=== PATIENT | male | born 1950 | race Caucasian/White ===

== ENCOUNTER → 2016-05-23 | Outpatient (REF) | payer MEDICARE, OTHER ==
[~2016-05-23] MED LIST: ATOR1TAB19 PO; BENA20TA2 PO; CIPR500T3 PO; FLAG500T PO; GLIP5TAB8 PO; JANU100T PO; METF750T PO; METO-207 PO; PRIM50TA6 PO
[2016-05-23 17:39] LABS: ALBUMIN 3.8 GM/DL (3.2-5.2); ALBUMIN/GLOBULIN RATIO 1.23 (1.00-1.93); BILIRUBIN,TOTAL 0.7 MG/DL (0.2-1.0); CREATININE FOR GFR 1.37 MG/DL (0.70-1.30); GLOMERULAR FILTRATION RATE 55.2 (>49); POTASSIUM SERUM 4.2 MEQ/L (3.5-5.1); TOTAL PROTEIN 6.9 GM/DL (6.4-8.2); URIC ACID 8.9 MG/DL (3.5-7.2)
== END ==
LOC: M SFHCCAPE 07:56
PROVIDERS: ATTEND Nurse Practitioner
DX: E11.9 Type 2 diabetes mellitus without complications (principal)

== ENCOUNTER → 2016-06-07 | Outpatient (REF) | payer MEDICARE, OTHER ==
[2016-06-07 17:18] LABS: ALBUMIN 4.2 GM/DL (3.2-5.2); ALBUMIN/GLOBULIN RATIO 1.4 (1.00-1.93); BILIRUBIN,TOTAL 0.5 MG/DL (0.2-1.0); CREATININE FOR GFR 1.48 MG/DL (0.70-1.30); GLOMERULAR FILTRATION RATE 50.3 (>49); POTASSIUM SERUM 4.8 MEQ/L (3.5-5.1); TOTAL PROTEIN 7.2 GM/DL (6.4-8.2)
== END ==
LOC: M SFHCCAPE 08:09
PROVIDERS: ATTEND Physician Assistant
DX: N20.0 Calculus of kidney (principal)

== ENCOUNTER → 2016-06-27 | Outpatient (REF) | payer MEDICARE, OTHER ==
[~2016-06-27] MED LIST changes: +ASPI1TAB PO; +ASPI81TAEC PO; +BENA40TA PO; +CLOB05OI EXT; +COLA100C3 PO; +COLC1TAB13 PO; +HYDR-3713 PO; +LORT5TAB PO; +NORC1TAB4 PO; +TYLE325T5 PO
[2016-06-27 18:17] LABS: MEAN CORPUSCULAR HEMOGLOBIN 29.8 pg (27.0-33.0); MEAN CORPUSCULAR HGB CONC 34.3 g/dl (32.0-36.5); MEAN CORPUSCULAR VOLUME 86.7 fl (80.0-96.0); RED CELL DISTRIBUTION WIDTH 13.1 % (11.5-14.5); WHITE BLOOD COUNT 7.6 K/mm3 (4.0-10.0)
[2016-06-27 18:24] LABS: CALCIUM LEVEL 8.4 MG/DL (8.8-10.2); CREATININE FOR GFR 1.38 MG/DL (0.70-1.30); GLOMERULAR FILTRATION RATE 54.5 (>49); POTASSIUM SERUM 4.1 MEQ/L (3.5-5.1)
[2016-06-27 18:25] LABS: INR 1.06
== END ==
LOC: M LABSMT 11:46
PROVIDERS: ATTEND Nurse Practitioner Family
DX: Z01.818 Encounter for other preprocedural examination (principal); N20.0 Calculus of kidney; Z79.899 Other long term (current) drug therapy

== ENCOUNTER → 2016-07-04 | Outpatient (CLI) | payer MEDICARE, BC, OTHER ==
[~2016-07-04] VITALS: Ht 180.3 cm; Wt 117.0 kg
[~2016-07-04] MED LIST changes: +COLA100C PO; -COLA100C3 PO; +ISOVUE-300 61% 50ML VIAL (Q9967) As Ordered ONE; +LIDOCAINE 2% MDV 20 ML VIAL As Ordered ONE; +LIDOCAINE W/EPINEPHRINE 1% 20ML VIAL As Ordered ONE; +LR 1,000 ML IV SCH; +MIDAZOLAM INJ 2 MG/2 ML VIAL (J2250) As Ordered ONE; -NORC1TAB4 PO; +NORC5TAB PO; +NORCO, ANEXSIA 5/325MG TABLET (HYDROcodone/ACETAMINOPHEN) As Ordered ONE; +NORCO, ANEXSIA 5/325MG TABLET (HYDROcodone/ACETAMINOPHEN) PO PRN; +ONDANSETRON 4MG/2ML VIAL (J2405) As Ordered ONE; +ONDANSETRON 4MG/2ML VIAL (J2405) IV PRN; +SODIUM BICARBONATE 8.4% INJ 50MEQ 50 ML VIAL As Ordered ONE; +cefTRIAXone SOD 1 GM VIAL (J0696) As Ordered ONE; +cefTRIAXone SOD 1 GM in D5W MINI-BAG PLUS 50 ML IV ONE; +fentaNYL 100 MCG/2 ML INJECTION (J3010) As Ordered ONE; +fentaNYL 100 MCG/2 ML INJECTION (J3010) IV PRN
[2016-07-04 15:15] VITALS: BP 191/82
--- NOTE | 2016-07-04 17:11 | REPKIM ---
CLINICAL HISTORY: Patient presents with a large kidney stone in the right renal pelvis as documented by the previous CT study dated 04/13/16. The referring urology service has requested a nephroureteral catheter (stent) placement for preop percutaneous nephrolithotripsy urology procedure. PROCEDURE PERFORMED: 1. Ultrasound right Kidney 2. Percutaneous antegrade Nephrostogram 3. Percutaneous Nephroureteral catheter (stent) placement INTERVENTIONALIST: Nissa Alberts MD CONSENT: The risks, benefits and alternatives to the procedure were explained to the patient and informed written consent was obtained. SEDATION: Sedation and analgesia was provided by the Anesthesiology Dept. MEDICATIONS: Rocephin 1gm IV, Local Lidocaine CONTRAST: 35 mL Isovue 300 EBL: 10 mL FLUORO TIME: 9.2 minutes DEVICE USED: 8.5F 45cm pigtail trimmed; Nephroureteral catheter Lot #[id number] PROCEDURE/FINDINGS: The patient was brought to the interventional radiology suite and placed in the prone position, right flank prepped and draped in the usual sterile fashion. Time out procedure was performed. Ultrasound of the kidney showed a large renal pelvis kidney stone. Two smaller stones were seen in the mid and lower pole calyces. No evidence of hydronephrosis. Using ultrasound and fluoroscopy guidance, a 21-gauge Accustick needle was advanced into the targeted posterior lower pole calyceal stone of the right kidney, after infiltration of the skin and deep tissues with local anesthetic. Contrast was injected and images were obtained. This showed antegrade flow of contrast into the urinary bladder. Using a hydrophilic guidewire, the catheter-wire combination was advanced around the calyceal/renal pelvis stones into the proximal ureter then into the urinary bladder. The wire was then exchanged for a stiff wire. An 8.5-Citizen Of [place] 45- cm length pigtail catheter, trimmed to make a straight catheter, ( nephroureteral catheter) was introduced over the guidewire after serial dilation of its tract. The guidewire was withdrawn and the distal end of the NU catheter positioned in the mid to distal ureter. The nephroureteral catheter was then flushed and capped. The patient tolerated the procedure well with no immediate complications. This procedure was performed using ultrasound and fluoroscopy. Dr. Alberts was present. IMPRESSION: 1. A large kidney stone in the right renal pelvis. Two calyceal stones identified; one in the mid level calyx and the other in the lower pole calyx. Nephrostogram demonstrates free antegrade flow of contrast into the urinary bladder. No evidence of hydronephrosis. 2. Successful 8.5F nephroureteral catheter placement via the lower pole posterior calyceal stone with its tip positioned in the mid to distal ureter. This access will be used for subsequent percutaneous nephrolithotripsy urology procedure. cc: ELI Mohan MD MTDD
== END | disposition home or self-care (01) ==
LOC: M IRPRO 10:01
PROVIDERS: ATTEND Nurse Practitioner Family
DX: N20.0 Calculus of kidney (principal)

== ENCOUNTER 2016-07-07 09:03 | Inpatient (IN) | payer MEDICARE, BC, OTHER ==
[~2016-07-07] VITALS: Ht 180.3 cm; Wt 117.0 kg
[~2016-07-07 09:03] MED LIST changes: -ASPI81TAEC PO; -BENA40TA PO; -CLOB05OI EXT; -COLA100C PO; -COLC1TAB13 PO; +CONRAY-60 60% 50ML VIAL (Q9961) As Ordered ONE; -ISOVUE-300 61% 50ML VIAL (Q9967) As Ordered ONE; -LIDOCAINE 2% MDV 20 ML VIAL As Ordered ONE; -LIDOCAINE W/EPINEPHRINE 1% 20ML VIAL As Ordered ONE; -LORT5TAB PO; -LR 1,000 ML IV SCH; -MIDAZOLAM INJ 2 MG/2 ML VIAL (J2250) As Ordered ONE; -NORCO, ANEXSIA 5/325MG TABLET (HYDROcodone/ACETAMINOPHEN) As Ordered ONE; -NORCO, ANEXSIA 5/325MG TABLET (HYDROcodone/ACETAMINOPHEN) PO PRN; -ONDANSETRON 4MG/2ML VIAL (J2405) As Ordered ONE; -ONDANSETRON 4MG/2ML VIAL (J2405) IV PRN; -SODIUM BICARBONATE 8.4% INJ 50MEQ 50 ML VIAL As Ordered ONE; -TYLE325T5 PO; -cefTRIAXone SOD 1 GM VIAL (J0696) As Ordered ONE; -cefTRIAXone SOD 1 GM in D5W MINI-BAG PLUS 50 ML IV ONE; -fentaNYL 100 MCG/2 ML INJECTION (J3010) As Ordered ONE; -fentaNYL 100 MCG/2 ML INJECTION (J3010) IV PRN
[2016-07-07] MEDS ORDERED: LR 1,000 ML IV SCH ×2 (09:15→14:00)
[2016-07-07] MEDS ORDERED: COLC1TAB13 PO (10:01)
[2016-07-07] MEDS ORDERED: NS 1,000 ML IV SCH (12:28)
[2016-07-07] MEDS ORDERED: ACETAMINOPHEN TAB 650MG DOSE (2X325MG) PO PRN (12:30)
[2016-07-07] MEDS ORDERED: MORPHINE 2 MG/ML 1ML SYRINGE IV PRN (12:30)
[2016-07-07] MEDS ORDERED: PERCOCET 5MG/325MG TAB PO PRN ×2 (12:30→14:00)
[2016-07-07] MEDS ORDERED: ONDANSETRON 4MG/2ML VIAL (J2405) IV PRN ×2 (12:30→14:00)
[2016-07-07] MEDS ORDERED: MIDAZOLAM INJ 2 MG/2 ML VIAL (J2250) As Ordered ONE (13:18)
[2016-07-07] MEDS ORDERED: PROPOFOL 500 MG/50 ML VIAL As Ordered ONE (13:18)
[2016-07-07] MEDS ORDERED: CONRAY-60 60% 50ML VIAL (Q9961) As Ordered ONE (13:18)
[2016-07-07] MEDS ORDERED: fentaNYL 100 MCG/2 ML INJECTION (J3010) As Ordered ONE ×2 (13:18→13:51)
[2016-07-07] MEDS ORDERED: ONDANSETRON 4MG/2ML VIAL (J2405) As Ordered ONE (13:19)
[2016-07-07] MEDS ORDERED: ROCURONIUM BROMIDE 50 MG/5 ML VIAL As Ordered ONE (13:19)
[2016-07-07] MEDS ORDERED: ePHEDrine SULFATE 25 MG/5 ML(5MG/ML) SYRINGE As Ordered ONE (13:20)
[2016-07-07] MEDS ORDERED: NEOSTIGMINE 1MG/ML 5 ML SYRINGE (J2710) As Ordered ONE (13:21)
[2016-07-07] MEDS ORDERED: GLYCOPYRROLATE INJ 0.2 MG/ML 2 ML VIAL As Ordered ONE ×2 (13:21→13:24)
[2016-07-07] MEDS ORDERED: PHENYLephrine HCL 500 MCG/5 ML (100MCG/ML) SYRINGE (J2370) As Ordered ONE (13:21)
[2016-07-07] MEDS ORDERED: fentaNYL 100 MCG/2 ML INJECTION (J3010) IV PRN (14:00)
[2016-07-07] MEDS ORDERED: NORCO, ANEXSIA 5/325MG TABLET (HYDROcodone/ACETAMINOPHEN) As Ordered ONE (14:01)
[2016-07-07] MEDS: NORCO, ANEXSIA 5/325MG TABLET (HYDROcodone/ACETAMINOPHEN) PO PRN ×2 (14:02→14:37)
[2016-07-07 14:15] LABS: MEAN CORPUSCULAR HGB CONC 33.9 g/dl (32.0-36.5); MEAN CORPUSCULAR VOLUME 85.7 fl (80.0-96.0); RED CELL DISTRIBUTION WIDTH 12.8 % (11.5-14.5); WHITE BLOOD COUNT 5.8 K/mm3 (4.0-10.0)
[2016-07-07 14:32] LABS: CALCIUM LEVEL 8.8 MG/DL (8.8-10.2); CREATININE FOR GFR 1.46 MG/DL (0.70-1.30); GLOMERULAR FILTRATION RATE 51.1 (>49)
--- NOTE | 2016-07-07 17:26 | REP ---
Clinical: Postoperative assessment . Comparison: 03/16/2016 . Findings: Examination is limited by underpenetration and poor inspiratory effort. The mediastinum and cardiac silhouette are stable and within normal limits for portable technique. Trace right basilar atelectasis cannot be excluded. Skeletal structures are intact. Impression: Possible trace right basilar atelectasis. Signed by Manuel Bustos MD 07/07/2016 05:17 P
[2016-07-07 18:03] VITALS: BP 137/65
--- NOTE | 2016-07-07 19:38 | RO ---
DATE OF PROCEDURE: 07/07/2016 PREPROCEDURE DIAGNOSIS: Right kidney stone. POSTPROCEDURE DIAGNOSIS: Right kidney stone. PROCEDURE: Aborted right percutaneous nephrolithotomy. SURGEON: Dr. Tj Merrill BABYSITTER: None. ANESTHESIA: General. OPERATIVE INDICATIONS: This is a 66-year-old male with approximately 2.5 cm right renal pelvis stone was brought to the operating room today for the above listed procedure. Of note, the patient went to Interventional Radiology a few days ago for placement of a nephroureteral stent. DESCRIPTION OF PROCEDURE: The patient was brought to the operating room and general anesthesia was induced. Prophylactic antibiotics were infused. He then had a Garg catheter placed under sterile conditions After that point he was placed in the prone position and prepped and draped in the usual sterile fashion. At the beginning of the procedure fluoroscopy was obtained and was notable for the right sided nephroureteral stent with the distal end ending in the proximal right ureter. At this point, an Amplatz super stiff wire was then advanced down the nephroureteral stent and while doing so the distal aspect of the nephroureteral stent actually pulled out of the ureter and out of the kidney. This effectively lost access to the kidney. At this point, I attempted to regain access and I inserted a spinal needle in the proximity of the kidney. Contrast was injected. It was clear that the needle was not within the collecting system. I tried this for a few minutes and it became clear that I was not going to be able to regain access to the right kidney. I then decided to abort the procedure at this point. The patient was then taken out of the prone position, awakened from anesthesia, and transported to the recovery room in stable condition. ESTIMATED BLOOD LOSS: 5 mL. COMPLICATIONS: None. SPECIMENS: None. PLAN: The patient is going to be sent home. We will have to send him back to Interventional Radiology and this time make have the nephroureteral stent be placed all the way down into the bladder. After that point, he will be brought back for his percutaneous nephrolithotomy. [facility]
[2016-07-07] MEDS ORDERED: ceFAZolin SOD 1 GM in D5W MINI-BAG PLUS 50 ML IV SCH (20:00)
[2016-07-07] MEDS ORDERED: ATORVASTATIN 10 MG TAB PO SCH (21:00)
[2016-07-07] MEDS ORDERED: PRIMIDONE 50 MG TAB PO SCH (21:00)
[2016-07-07] MEDS ORDERED: DOCUSATE SODIUM 100 MG CAP PO SCH (21:00)
[2016-07-08] MEDS ORDERED: COLCHICINE 0.6 MG TAB PO SCH (09:00)
[2016-07-08] MEDS ORDERED: METOPROLOL SUCC (TopROL XL) 50MG **XL** TAB PO SCH (09:00)
[2016-07-08] MEDS ORDERED: ASPIRIN 81 MG ENTERIC TAB PO SCH (09:00)
[2016-07-08] MEDS ORDERED: BENAZEPRIL 20 MG TAB PO SCH (09:00)
[2016-07-08] MEDS ORDERED: SITagliptin 50 MG TAB (JANUVIA) PO SCH (09:00)
[2016-07-10] MEDS ORDERED: ONDANSETRON 4MG/2ML VIAL (J2405) As Ordered ONE (15:06)
[2016-07-12] MEDS ORDERED: COLA100C PO (10:56)
== END 2016-07-07 14:45 | disposition home or self-care (01) | DRG 661 ==
LOC: M OR 09:03 → M RR INP 13:31
PROVIDERS: ADMIT Urology; ATTEND Urology
PROC: 0T763ZZ Dilation of Right Ureter, Percutaneous Approach (ICD-10-PCS; principal; 2016-07-04)
DX: N20.0 Calculus of kidney (principal)

== ENCOUNTER 2016-07-10 11:04 | Inpatient (IN) | payer MEDICARE, BC, OTHER ==
[~2016-07-10] VITALS: Ht 180.3 cm; Wt 120.3 kg
[~2016-07-10 11:04] MED LIST changes: +COLC1TAB13 PO; -CONRAY-60 60% 50ML VIAL (Q9961) As Ordered ONE; +NORC1TAB4 PO; -NORC5TAB PO
[2016-07-10] MEDS ORDERED: cefTRIAXone SOD 1 GM VIAL (J0696) As Ordered ONE (13:19)
[2016-07-10] MEDS ORDERED: ISOVUE-300 61% 50ML VIAL (Q9967) As Ordered ONE (13:19)
[2016-07-10] MEDS ORDERED: cefTRIAXone SOD 1 GM in D5W MINI-BAG PLUS 50 ML IV ONE (13:19)
[2016-07-10] MEDS ORDERED: LIDOCAINE 2% MDV 20 ML VIAL As Ordered ONE (13:19)
[2016-07-10] MEDS ORDERED: PERCOCET 5MG/325MG TAB PO PRN ×2 (14:15→15:15)
[2016-07-10] MEDS ORDERED: DEXTROSE 50% 50 ML SYRINGE IV PRN (14:15)
[2016-07-10] MEDS ORDERED: MORPHINE 2 MG/ML 1ML SYRINGE IV PRN (14:15)
[2016-07-10] MEDS ORDERED: ONDANSETRON 4MG/2ML VIAL (J2405) IV PRN ×2 (14:15→15:15)
[2016-07-10] MEDS ORDERED: GLUCOSE 4 GM CHEW TABLET PO PRN (14:15)
[2016-07-10] MEDS ORDERED: ACETAMINOPHEN TAB 650MG DOSE (2X325MG) PO PRN (14:15)
[2016-07-10] MEDS ORDERED: GLUCAGON FOR INJ 1 MG VIAL (J1610) SC PRN (14:15)
[2016-07-10] MEDS ORDERED: MEPERIDINE INJ 25 MG/ML VIAL (J2175) IV PRN (15:15)
[2016-07-10] MEDS ORDERED: METOCLOPRAMIDE INJ 10MG/2ML VIAL (J2765) IV PRN (15:15)
[2016-07-10] MEDS ORDERED: LR 1,000 ML IV SCH (15:15)
[2016-07-10] MEDS ORDERED: fentaNYL 100 MCG/2 ML INJECTION (J3010) IV PRN (15:15)
--- NOTE | 2016-07-10 15:47 | REPKIM ---
CLINICAL HISTORY: Patient presents with right sided kidney stones. The referring urology service has requested a nephroureteral catheter (stent) placement for preop percutaneous nephrolithotripsy urology procedure. PROCEDURE PERFORMED: 1. Ultrasound right Kidney 2. Percutaneous antegrade Nephrostogram 3. Percutaneous Nephroureteral catheter (stent) placement INTERVENTIONALIST: Nissa Alberts MD CONSENT: The risks, benefits and alternatives to the procedure were explained to the patient and informed written consent was obtained. SEDATION: Sedation and analgesia was provided by the Anesthesiology Dept. MEDICATIONS: Rocephin 1gm IV, Local Lidocaine CONTRAST: 46 mL Isovue 300 EBL: 10 mL FLUORO TIME: 9.2 minutes DEVICE USED: 5F 70 cm pigtail; Nephroureteral catheter Lot #[id number] PROCEDURE/FINDINGS: The patient was brought to the interventional radiology suite and placed in the prone position, right flank prepped and draped in the usual sterile fashion. Time out procedure was performed. Ultrasound of the kidney showed a large kidney stone in the renal pelvis. Two smaller stones were seen in the mid and lower pole calyces. Using ultrasound and fluoroscopy guidance, a 21-gauge Accustick needle was advanced into the targeted posterior lower pole calyceal stone of the right kidney, after infiltration of the skin and deep tissues with local anesthetic. Contrast was injected and images were obtained. This showed antegrade flow of contrast into the urinary bladder. Using a hydrophilic guidewire, the catheter-wire combination was advanced around the calyceal/renal pelvis stones into the proximal ureter then into the urinary bladder. The wire was then exchanged for a stiff wire. A 5-Sinhala 70-cm length pigtail catheter was introduced over the guidewire. The guidewire was withdrawn and the distal end of the loop in the bladder. The nephroureteral catheter was then flushed and capped. The patient tolerated the procedure well with no immediate complications. This procedure was performed using ultrasound and fluoroscopy. Dr. Alberts was present. IMPRESSION: 1. A large kidney stone in the right renal pelvis. Two calyceal stones in the mid to lower pole calyces. Nephrostogram demonstrates free antegrade flow of contrast into the urinary bladder. No evidence of hydronephrosis. 2. Successful 5F nephroureteral catheter placement via the lower pole posterior calyceal stone with its tip positioned in the urinary bladder as discussed above. This access will be used for subsequent percutaneous nephrolithotripsy urology procedure. cc: ELI Mohan MD MTDD
[2016-07-10 16:00] VITALS: BP 178/81
[2016-07-10 17:00] VITALS: BP 158/76
--- NOTE | 2016-07-10 17:47 | HPEPDOC ---
General Date of Admission Jul 10, 2016 at 14:13 Attending Physician: SYLVIA GONZALEZ MD Chief Complaint Rt Renal Calculi Source: Patient History of Present Illness This is a 66 y/o M w/ a PMH significant for HTN, DM2, colon cancer (s/p bowel resection), and kidney stones, admitted to the hospital for pain control after having a right percutaneous nephroureteral (NU) stent placement. The patient underwent an aborted right PCNL this past week due to loss of access to the kidney. He therefore had a new percutaneous NU stent placed today in IR. Since the procedure, he has had moderate amount of pain, requiring admission for pain control. At the time of my visit, his pain had improved some. Home Medications Scheduled (Colchicine) 0.6 Mg Tab 0.6 MG PO DAILY (Reported) Aspirin (Aspirin 81) 81 Mg Tab 81 MG PO DAILY (Reported) Atorvastatin Calcium (Atorvastatin Calcium) 10 Mg Tab 10 MG PO QPM (Reported) Benazepril HCl (Benazepril HCl) 20 Mg Tab 40 MG PO DAILY (Reported) Metformin Hydrochloride (Metformin HCl ER) 750 Mg Tab 750 MG PO DAILY (Reported ) Metoprolol Succinate (Metoprolol Succinate ER) 50 Mg Tab 50 MG PO DAILY ( Reported) Primidone (Primidone) 50 Mg Tab 50 MG PO BID (Reported) Sitagliptin Phosphate (Januvia) 100 Mg Tab 100 MG PO DAILY (Reported) Scheduled PRN Acetaminophen/Hydrocodone (Hydrocodone/Acetaminophen 5-325 mg) 1 Tab Tab 1 TAB PO Q6HP PRN PRN pain Allergies Coded Allergies: Morphine (Unverified Adverse Reaction, Intermediate, "Night Terrors", 07/07) Derivative Milk (Unverified Adverse Reaction, Mild, DIARRHEA, 07/07/16) Sulfanilamide (Unverified Adverse Reaction, Mild, Upset Stomach, 07/07/16) Indomethacin (Unverified Adverse Reaction, Unknown, Blood in urine, ) Past Medical History Medical History see HPI Surgical History colon resection Review of Symptoms Constitutional: Denies: Chills, Fever, Night Sweats Eyes: Denies: Pain, Vision change ENT: Denies: Dysphagia, Ear Pain, Head Aches Skin: Denies: Breakdown, Lesions, Rash Pulmonary: Denies: Cough, Dyspnea Cardiovascular: Denies: Chest Pain, Lt Headedness, Orthopnea, Palpitations, Paroxysmal Noc. Dyspnea Gastrointestinal: Denies: Abdominal Pain, Diarrhea, Nausea, Vomiting Genitourinary: Denies: Dysuria, Frequency, Incontinence, Retention Hematologic: Denies: Bleeding Excessively, Bruising Musculoskeletal: Reports: Other Symptoms (moderate right big toe pain from gout flare up) Neurological: Denies: Change in speech, Confusion, Numbness, Weakness Psych: Reports: Mood Normal, Denies: Depression, Memory Issues Physical Examination General Exam: Positive: Alert, No Acute Distress ENT Exam: Positive: Atraumatic Chest Exam: Positive: Clear to auscultation, Normal air movement Heart Exam: Positive: Rate Normal Abdomen Exam: Positive: Soft, Negative: Tenderness Skin Exam: Positive: Nl turgor and temperature Neuro Exam: Positive: Normal Speech Psych Exam: Positive: Mental status NL, Mood NL Vital Signs T 97.0 / HR 57 / RR 20 / BP 158/76 / O2 Sat 96% on RA Assessment/Plan This is a 66 y/o M w/ a large right renal stone admitted for pain control after having a right percutaneous NU stent placed in IR today. Plan / VTE VTE Prophylaxis Ordered?: Yes VTE Exclusion Mechanical Proph: N/A:VTE Prophy Ordered Plan Plan - plan for right percutaneous nephrolithotomy tomorrow - percocet, morphine prn pain - continue home meds (will plan to hold benazepril in the morning) - SCDs - SSI - diabetic diet - NPO at midnight for right PCNL tomorrow SYLVIA GONZALEZ MD Jul 10, 2016 17:47
[2016-07-10 18:00] VITALS: BP 163/80
[2016-07-10] MEDS: HumaLOG INSULIN (NovoLOG) PER UNIT SC SCH (18:00)
[2016-07-10] MEDS: COLCHICINE 0.6 MG TAB PO PRN (20:22)
[2016-07-10] MEDS: PRIMIDONE 50 MG TAB PO SCH (20:23)
[2016-07-10] MEDS: ATORVASTATIN 10 MG TAB PO SCH (20:23)
[2016-07-10 22:00] VITALS: BP 156/74
[2016-07-11 06:00] VITALS: BP 158/80
[2016-07-11] MEDS ORDERED: CLOB05OI EXT (06:14)
[2016-07-11] MEDS ORDERED: ASPI81TAEC PO (06:14)
[2016-07-11] MEDS ORDERED: HYDR-3713 PO (06:14)
[2016-07-11 06:24] LABS: MEAN CORPUSCULAR HEMOGLOBIN 29.3 pg (27.0-33.0); MEAN CORPUSCULAR HGB CONC 34.5 g/dl (32.0-36.5); MEAN CORPUSCULAR VOLUME 84.9 fl (80.0-96.0); RED CELL DISTRIBUTION WIDTH 12.7 % (11.5-14.5); WHITE BLOOD COUNT 5.5 K/mm3 (4.0-10.0)
[2016-07-11 06:38] LABS: CALCIUM LEVEL 8.7 MG/DL (8.8-10.2); CREATININE FOR GFR 1.29 MG/DL (0.70-1.30); POTASSIUM SERUM 3.6 MEQ/L (3.5-5.1)
[2016-07-11] MEDS: HumaLOG INSULIN (NovoLOG) PER UNIT SC SCH ×3 (07:30→17:57)
[2016-07-11] MEDS ORDERED: BENAZEPRIL 20 MG TAB PO SCH (09:00)
[2016-07-11] MEDS: ASPIRIN 81 MG ENTERIC TAB PO SCH (09:31)
[2016-07-11] MEDS: METOPROLOL SUCC (TopROL XL) 50MG **XL** TAB PO SCH (09:31)
[2016-07-11] MEDS: PRIMIDONE 50 MG TAB PO SCH ×2 (09:33→20:16)
[2016-07-11 10:00] VITALS: BP 146/74
[2016-07-11] MEDS ORDERED: ceFAZolin SOD 2 GM in D5W MINI-BAG PLUS 50 ML IV SCH (12:00)
[2016-07-11] MEDS: NS 1,000 ML IV SCH (16:45)
--- NOTE | 2016-07-11 16:45 | ROOPDOC ---
[facility] Report Of Operation Report of Operation DATE OF PROCEDURE: 07/11/2016 PREPROCEDURE DIAGNOSIS: Right kidney stone. POSTPROCEDURE DIAGNOSIS: Right kidney stone. PROCEDURE: Right percutaneous nephrolithotomy, right antegrade nephrostogram with intraoperative interpretation of images, right ureteral stent placement. SURGEON: Sylvia Gonzalez MD BROWNELL OPERATOR: None. ANESTHESIA: General. OPERATIVE INDICATIONS: This is a 66-year-old male with a 2.2cm right renal pelvis stone. He underwent a right nephroureteral stent placement in Interventional Radiology yesterday and was brought to the operating room today for treatment of his stone. DESCRIPTION OF PROCEDURE: The patient was brought to the operating room and general anesthesia was induced. Prophylactic antibiotics were infused. He then had a Garg catheter placed under sterile conditions. This catheter was connected to gravity drainage and then he was repositioned in a prone position for the percutaneous nephrolithotomy. His right flank was then prepped and draped in usual sterile fashion. We then gained access to right kidney by advancing an Amplatz Super Stiff wire down the nephroureteral stent. The nephroureteral stent was then removed leaving the wire in place. A skin incision, approximately 2-3 cm in length, was made adjacent to the wire and a dual lumen ureteral catheter was then advanced over the wire into the right kidney. An antegrade nephrostogram was then performed and it was negative for extravasation. I then advanced a guidewire down the other port of the dual lumen ureteral catheter and then the dual lumen ureteral catheter was removed leaving both wires in place. The guidewire was then secured to the drapes served as a safety wire and over the Super Stiff wire the balloon dilator was advanced into the right kidney. This was then inflated to 18 atmospheres and left in place for a few seconds. I then advanced an access sheath over the balloon and into the right kidney. The balloon was then let down and removed, and the wire was secured to a drape. I then went in the right kidney with the nephroscope and within renal pelvis, the large 2.2 cm stone was seen. The stone was then fragmented into smaller pieces and suctioned out using the CyberWand. The larger pieces were also removed using a Perc NCircle basket. Once all the stones were removed, I utilized the previously placed wire to advance a 7-[place] x 22-32 cm JJ ureteral stent down into the right collecting system. The wire was then removed and there were adequate curls of the stent in the right renal pelvis and in the bladder. At this point, the access sheath was removed and the remaining wire was utilized to advance an 18-[place] tip catheter into the right renal pelvis. The balloon was inflated with about 2-3 mL of contrast and the wire was then removed. Another antegrade nephrostogram was performed and it was negative for extravasation. This catheter was then secured to the skin using a #2-0 silk suture. The catheter was then connected to gravity drainage. Dressings were then applied, and this marked conclusion of procedure. The patient was placed back in supine position, awakened from anesthesia, transported to the recovery room in stable condition. ESTIMATED BLOOD LOSS: 25 mL. COMPLICATIONS: None. SPECIMENS: Kidney stone fragments. PLAN: The patient will be admitted to the hospital postoperatively. He will likely have his right nephrostomy catheter and Garg catheter removed tomorrow and then he will be discharged home with the plan to remove his stent in a few weeks. SYLVIA GONZALEZ MD Jul 11, 2016 16:45
[2016-07-11 17:15] VITALS: BP 184/86
[2016-07-11 17:15] LABS: MEAN CORPUSCULAR HGB CONC 33.7 g/dl (32.0-36.5); MEAN CORPUSCULAR VOLUME 85.9 fl (80.0-96.0); RED CELL DISTRIBUTION WIDTH 12.7 % (11.5-14.5); WHITE BLOOD COUNT 6.4 K/mm3 (4.0-10.0)
[2016-07-11 17:28] LABS: CALCIUM LEVEL 8.5 MG/DL (8.8-10.2); CREATININE FOR GFR 1.39 MG/DL (0.70-1.30); GLOMERULAR FILTRATION RATE 54.1 (>49); POTASSIUM SERUM 3.6 MEQ/L (3.5-5.1)
[2016-07-11 17:45] VITALS: BP 166/77
[2016-07-11 18:45] VITALS: BP 157/74
[2016-07-11] MEDS: ATORVASTATIN 10 MG TAB PO SCH (20:15)
[2016-07-11] MEDS: ceFAZolin SOD 1 GM in D5W MINI-BAG PLUS 50 ML IV SCH (20:15)
[2016-07-11] MEDS: COLCHICINE 0.6 MG TAB PO PRN (20:15)
[2016-07-11] MEDS: NORCO, ANEXSIA 5/325MG TABLET (HYDROcodone/ACETAMINOPHEN) PO PRN (20:16)
[2016-07-11] MEDS: DOCUSATE SODIUM 100 MG CAP PO SCH (20:16)
[2016-07-11 22:00] VITALS: BP 143/70
[2016-07-12] MEDS: NS 1,000 ML IV SCH ×2 (01:38→12:27)
[2016-07-12 02:00] VITALS: BP 146/76
[2016-07-12] MEDS: ceFAZolin SOD 1 GM in D5W MINI-BAG PLUS 50 ML IV SCH (03:31)
[2016-07-12] MEDS: NORCO, ANEXSIA 5/325MG TABLET (HYDROcodone/ACETAMINOPHEN) PO PRN (05:52)
[2016-07-12 06:00] VITALS: BP 147/72
[2016-07-12 07:10] LABS: MEAN CORPUSCULAR HEMOGLOBIN 29.9 pg (27.0-33.0); MEAN CORPUSCULAR VOLUME 85.6 fl (80.0-96.0); RED CELL DISTRIBUTION WIDTH 12.7 % (11.5-14.5); WHITE BLOOD COUNT 5.8 K/mm3 (4.0-10.0)
[2016-07-12 07:14] LABS: CALCIUM LEVEL 7.8 MG/DL (8.8-10.2); CREATININE FOR GFR 1.38 MG/DL (0.70-1.30); GLOMERULAR FILTRATION RATE 54.5 (>49); POTASSIUM SERUM 3.7 MEQ/L (3.5-5.1)
[2016-07-12] MEDS ORDERED: NORCO, ANEXSIA 5/325MG TABLET (HYDROcodone/ACETAMINOPHEN) PO PRN ×2 (07:15)
--- NOTE | 2016-07-12 07:43 | IPNPDOC ---
Assessment/Plan Date Seen The patient was seen on 07/12/16. Patient Summary This is a 66 y/o M POD1 s/p right PCNL. He is doing well. His Hb today is stable. Good UOP from both the nephrostomy catheter and the marie catheter. His nephrostomy catheter was therefore removed. We will leave the marie catheter in for 1 hour. If urine remains pink or clearer, we will remove the marie. Plan/VTE VTE Prophylaxis Ordered?: Yes VTE Exclusion Mechanical Proph: N/A:VTE Prophy Ordered Plan/Urinary Catheter Urinary Catheter: D/C Marie Plan - d/c marie after 1 hour if urine remains pink or clearer - norco prn pain w/ morphine for breakthrough - ambulate - periop ancef - SCDs - plan for discharge home after patient voids Subjective Review oF Systems Chief Complaint The patient is a 66-year-old male admitted with a reason for visit of Rt Renal Calculi. Events since Last Encounter No acute events o/n. Good pain control. No n/v. No f/c/ns. Objective Physical Examination General Exam: : Alert: Cooperative: No Acute Distress Heart Exam: Positive: Rate Normal ABDOMEN EXAM: : Soft Skin Exam: : Nl turgor and temperature Psych Exam: : Mental status NL: Mood NL Other physical findings marie catheter draining pink urine; right nephrostomy catheter draining dark pink urine w/ no clots Vital Signs/I&O Vital Signs Date Time Temp Pulse Resp B/P Pulse Ox O2 Delivery O2 Flow Rate FiO2 07/12/16 06:23 18 07/12/16 06:00 97.2 78 147/72 95 Room Air I&O- Last 24 Hours up to 6 AM 07/12/16 06:00 Intake Total 0 ml Output Total 2820 ml Balance -2820 ml Laboratory Data Labs 24H Laboratory Tests 2 07/11/16 11:22: Bedside Glucose (Misc Panel) 129H 07/11/16 16:52: Anion Gap 6L, Blood Urea Nitrogen 17, Creatinine 1.39H, Sodium Level 140, Potassium Level 3.6, Chloride Level 102, Carbon Dioxide Level 32, Calcium Level 8.5L, Glomerular Filtration Rate 54.1 07/11/16 17:17: Bedside Glucose (Misc Panel) 120H 07/11/16 20:43: Bedside Glucose (Misc Panel) 180H 07/12/16 06:37: Anion Gap 5L, Blood Urea Nitrogen 15, Creatinine 1.38H, Sodium Level 138, Potassium Level 3.7, Chloride Level 102, Carbon Dioxide Level 31, Calcium Level 7.8L, Glomerular Filtration Rate 54.5 CBC/BMP Laboratory Tests 07/11/16 16:52 Calcium Level 8.5 L, Red Blood Count 4.35, Mean Corpuscular Volume 85.9, Mean Corpuscular Hemoglobin 29.0, Mean Corpuscular Hemoglobin Concent 33.7, Red Cell Distribution Width 12.7 07/12/16 06:37 Calcium Level 7.8 L, Red Blood Count 3.79 L, Mean Corpuscular Volume 85.6, Mean Corpuscular Hemoglobin 29.9, Mean Corpuscular Hemoglobin Concent 35.0, Red Cell Distribution Width 12.7 FSBS Laboratory Tests Test 07/11/16 11:22 07/11/16 17:17 07/11/16 20:43 Range/Units Bedside Glucose (Misc Panel) 129 120 180 80-115 MG/DL SYLVIA GONZALEZ MD Jul 12, 2016 07:43
[2016-07-12] MEDS: DOCUSATE SODIUM 100 MG CAP PO SCH (08:28)
[2016-07-12] MEDS: ASPIRIN 81 MG ENTERIC TAB PO SCH (08:28)
[2016-07-12] MEDS: PRIMIDONE 50 MG TAB PO SCH (08:28)
[2016-07-12 08:29] VITALS: BP 146/70
[2016-07-12] MEDS: METOPROLOL SUCC (TopROL XL) 50MG **XL** TAB PO SCH (08:29)
[2016-07-12] MEDS: HumaLOG INSULIN (NovoLOG) PER UNIT SC SCH ×2 (08:29→12:38)
[2016-07-12 10:00] VITALS: BP 145/73
[2016-07-12] MEDS ORDERED: TYLE325T5 PO (10:56)
[2016-07-12] MEDS ORDERED: BENA40TA PO (10:56)
[2016-07-12] MEDS ORDERED: LORT5TAB PO (10:56)
[2016-07-12] MEDS ORDERED: COLA100C3 PO (10:56)
--- NOTE | 2016-07-13 15:15 | DSES ---
DATE OF ADMISSION: 07/10/2016 DATE OF DISCHARGE: 07/12/2016 ADMISSION DIAGNOSIS: Right kidney stone. DISCHARGE DIAGNOSIS: Right kidney stone. ADMITTING PHYSICIAN: Tj Merrill MD DISCHARGING PHYSICIAN: Tj Merrill MD PROCEDURE PERFORMED: Right percutaneous nephroureteral stent placement on 07/10/2016 and a right percutaneous nephrolithotomy on 07/11/2016. HISTORY OF PRESENT ILLNESS: This is a 66-year-old male with a large right kidney stone who came to the hospital for an outpatient placement of a right percutaneous nephroureteral stent on 07/10/2016. He had moderate amounts of postoperative pain and therefore was admitted to the hospital for pain control prior to his scheduled surgery on 07/11/2016. HOSPITALIZATION COURSE: The patient was admitted to the hospital after undergoing a right percutaneous nephroureteral stent placement on 07/10/2016 for pain control. His pain was kept under control overnight and he was taken to the operating room for a right percutaneous nephrolithotomy on 07/11/2016. That procedure went without complications. After the procedure, he was brought back to the regular nursing floor and his postoperative course was unremarkable. On postoperative day #1 his pain was very well controlled. His blood work was within normal limits. He was tolerating a regular diet and was ambulating well without difficulty. He was therefore discharged home on postoperative day #1 from the percutaneous nephrolithotomy in good condition. His right nephrostomy catheter as well as his Garg catheter were both removed prior to discharge and he voided without any difficulty. He had a right ureteral stent still in place and the plan is for him to be brought back to the office for stent removal in a few weeks.
== END 2016-07-12 13:26 | disposition home or self-care (01) | DRG 661 ==
LOC: M IRPRO 11:04 → M MSPAV 14:13
PROVIDERS: ADMIT Urology; ATTEND Urology
PROC: 0T9030Z Drainage of Right Kidney with Drainage Device, Percutaneous Approach (ICD-10-PCS; principal; 2016-07-10 13:00)
PROC: 0TC03ZZ Extirpation of Matter from Right Kidney, Percutaneous Approach (ICD-10-PCS; 2016-07-11)
PROC: 0T763DZ Dilation of Right Ureter with Intraluminal Device, Percutaneous Approach (ICD-10-PCS; 2016-07-11)
DX: N20.0 Calculus of kidney (principal); I10 Essential (primary) hypertension; Z85.038 Personal history of other malignant neoplasm of large intestine; Z90.49 Acquired absence of other specified parts of digestive tract; Z79.82 Long term (current) use of aspirin; Z79.84 Long term (current) use of oral hypoglycemic drugs; Z79.899 Other long term (current) drug therapy; Z88.5 Allergy status to narcotic agent; Z88.2 Allergy status to sulfonamides; Z91.011 Allergy to milk products; Z88.6 Allergy status to analgesic agent

== ENCOUNTER → 2016-07-12 | Day surgery (SDC) | payer MEDICARE, BC, OTHER ==
[2016-07-11 17:00] VITALS: BP 167/79
[~2016-07-12] MED LIST changes: +ASPI81TAEC PO; +BENA40TA PO; +CLOB05OI EXT; +COLA100C3 PO; +CONRAY-60 60% 50ML VIAL (Q9961) As Ordered ONE; +GLYCOPYRROLATE INJ 0.2 MG/ML 2 ML VIAL As Ordered ONE; +HYDROmorphone HCL 1 MG/ML SYRINGE (J1170) IV PRN; +LIDOCAINE 2% INJ 100 MG/5 ML SDV (FOR ANES.) As Ordered ONE; +LORT5TAB PO; +LR 1,000 ML IV SCH; +MIDAZOLAM INJ 2 MG/2 ML VIAL (J2250) As Ordered ONE; +NEOSTIGMINE 1MG/ML 5 ML SYRINGE (J2710) As Ordered ONE; +ONDANSETRON 4MG/2ML VIAL (J2405) As Ordered ONE; +ONDANSETRON 4MG/2ML VIAL (J2405) IV PRN; +PERCOCET 5MG/325MG TAB PO PRN; +PHENYLephrine HCL 500 MCG/5 ML (100MCG/ML) SYRINGE (J2370) As Ordered ONE; +PROPOFOL 200 MG/20 ML VIAL As Ordered ONE; +ROCURONIUM BROMIDE 50 MG/5 ML VIAL As Ordered ONE; +TYLE325T5 PO; +ceFAZolin 2 GM/D5W 50 ML IV BAG (J0690) As Ordered ONE; +ePHEDrine SULFATE 25 MG/5 ML(5MG/ML) SYRINGE As Ordered ONE; +fentaNYL 100 MCG/2 ML INJECTION (J3010) IV PRN; +fentaNYL 250 MCG/5 ML INJECTION (J3010) As Ordered ONE
--- NOTE | 2016-07-12 08:43 | REP ---
FLUOROSCOPIC GUIDANCE FOR PERCUTANEOUS NEPHROLITHOTRIPSY: 07/11/2016. Clinical history: Renal stone disease. Nine images from C-arm fluoroscopy provided to Dr. Merrill of the urology division for nephrolithotripsy left side. A percutaneous nephroureteral stent was placed the previous day. There is contrast injected through the catheter with urogram. Wire was passed down the ureter and over this wire a internal ureteral stent was placed. The filling defects in the collecting system are consistent with a known stone disease. Fluoroscopy time: 30 seconds. Signed by Dwayne Barrett MD 07/12/2016 05:04 P
[2016-07-20 00:08] LABS: Uric Acid 100 % (.)
== END | disposition home or self-care (01) ==
LOC: M SDC 08:00
PROVIDERS: ATTEND Urology
DX: N20.0 Calculus of kidney (principal); Z53.8 Procedure and treatment not carried out for other reasons

== ENCOUNTER → 2016-07-21 | Outpatient (CLI) | payer MEDICARE, BC, OTHER ==
[~2016-07-21] MED LIST changes: -CONRAY-60 60% 50ML VIAL (Q9961) As Ordered ONE; -GLYCOPYRROLATE INJ 0.2 MG/ML 2 ML VIAL As Ordered ONE; -HYDROmorphone HCL 1 MG/ML SYRINGE (J1170) IV PRN; -LIDOCAINE 2% INJ 100 MG/5 ML SDV (FOR ANES.) As Ordered ONE; -LR 1,000 ML IV SCH; -MIDAZOLAM INJ 2 MG/2 ML VIAL (J2250) As Ordered ONE; -NEOSTIGMINE 1MG/ML 5 ML SYRINGE (J2710) As Ordered ONE; -ONDANSETRON 4MG/2ML VIAL (J2405) As Ordered ONE; -ONDANSETRON 4MG/2ML VIAL (J2405) IV PRN; -PERCOCET 5MG/325MG TAB PO PRN; -PHENYLephrine HCL 500 MCG/5 ML (100MCG/ML) SYRINGE (J2370) As Ordered ONE; -PROPOFOL 200 MG/20 ML VIAL As Ordered ONE; -ROCURONIUM BROMIDE 50 MG/5 ML VIAL As Ordered ONE; -ceFAZolin 2 GM/D5W 50 ML IV BAG (J0690) As Ordered ONE; -ePHEDrine SULFATE 25 MG/5 ML(5MG/ML) SYRINGE As Ordered ONE; -fentaNYL 100 MCG/2 ML INJECTION (J3010) IV PRN; -fentaNYL 250 MCG/5 ML INJECTION (J3010) As Ordered ONE
--- NOTE | 2016-07-21 13:45 | REP ---
Supine abdomen two views: Comparison is 03/16/2016. There is a right ureteral stent with the proximal and distal pigtails in satisfactory locations. No calcifications noted along the course of the stent. There is a calcification inferiorly in the pelvis on the left, unchanged, nonspecific. Multiple surgical clips are noted in the abdomen on the left. The bowel gas pattern is normal. There are large bridging osteophytes throughout the lumbar spine, unchanged. There is bilateral hip osteoarthritis, unchanged. Signed by Jose Nunez MD 07/21/2016 01:37 P
== END ==
LOC: M SMT 13:01
PROVIDERS: ATTEND Urology
DX: N20.0 Calculus of kidney (principal)

== ENCOUNTER → 2016-08-29 | Outpatient (REF) | payer MEDICARE, OTHER ==
[2016-08-29 19:13] LABS: ALBUMIN 3.8 GM/DL (3.2-5.2); ALBUMIN/GLOBULIN RATIO 1.27 (1.00-1.93); BILIRUBIN,TOTAL 0.6 MG/DL (0.2-1.0); CALCIUM LEVEL 8.7 MG/DL (8.8-10.2); CREATININE FOR GFR 1.32 MG/DL (0.70-1.30); GLOMERULAR FILTRATION RATE 57.4 (>49); TOTAL PROTEIN 6.8 GM/DL (6.4-8.2)
== END ==
LOC: M SFHCCAPE 07:29
PROVIDERS: ATTEND Physician Assistant
DX: E11.9 Type 2 diabetes mellitus without complications (principal)

== ENCOUNTER → 2016-11-27 | Outpatient (REF) | payer MEDICARE, OTHER ==
[~2016-11-27] MED LIST changes: -BENA20TA2 PO; +BENA20TA8 PO; -COLA100C3 PO; +COLA100C5 PO; -METO-207 PO; +METO1TAB7 PO
[2016-11-27 16:39] LABS: BASO % 0.6 % (0.0-1.0); EOS # 0.1 K/mm3 (0.0-0.50); LARGE UNSTAINED CELL # 0.1 K/mm3 (0.0-0.4); LARGE UNSTAINED CELL % 1.3 % (0.0-4.0); LYMPH # 1.3 K/mm3 (1.5-4.5); LYMPH % 19.9 % (24.0-44.0); MEAN CORPUSCULAR HEMOGLOBIN 29.8 pg (27.0-33.0); MEAN CORPUSCULAR HGB CONC 34.4 g/dl (32.0-36.5); MEAN CORPUSCULAR VOLUME 86.7 fl (80.0-96.0); MONO # 0.5 K/mm3 (0.0-0.8); MONO % 8.2 % (0.0-5.0); NEUTROPHILS # 4.2 K/mm3 (1.8-7.7); NEUTROPHILS % 68.1 % (36.0-66.0); PLATELET COUNT, AUTOMATED 140 k/mm3 (150-450); RED CELL DISTRIBUTION WIDTH 13.8 % (11.5-14.5); WHITE BLOOD COUNT 6.2 K/mm3 (4.0-10.0)
[2016-11-27 16:53] LABS: ALBUMIN 3.8 GM/DL (3.2-5.2); ALBUMIN/GLOBULIN RATIO 1.15 (1.00-1.93); BILIRUBIN,TOTAL 0.5 MG/DL (0.2-1.0); CALCIUM LEVEL 8.8 MG/DL (8.8-10.2); CREATININE FOR GFR 1.38 MG/DL (0.70-1.30); GLOMERULAR FILTRATION RATE 54.5 (>49); POTASSIUM SERUM 4.4 MEQ/L (3.5-5.1); TOTAL PROTEIN 7.1 GM/DL (6.4-8.2)
== END ==
LOC: M SFHCCAPE 07:27
PROVIDERS: ATTEND Physician Assistant
DX: E11.9 Type 2 diabetes mellitus without complications (principal); I10 Essential (primary) hypertension

== ENCOUNTER → 2017-01-22 | Outpatient (CLI) | payer MEDICARE, BC, OTHER ==
--- NOTE | 2017-01-22 14:44 | REP ---
RENAL ULTRASOUND: HISTORY: Kidney stones. The kidneys are normal in echogenicity. The right kidney measures 4.7 cm in transverse by 7.1 cm in AP by 12.8 cm in cephalocaudal dimensions. The left kidney measures 6.2 cm in transverse by 6.5 cm in AP by 12.7 cm in cephalocaudal dimensions. There is no hydronephrosis or mass. A small focus of increased echogenicity 1.1 mm in size is present in the left kidney. A small focus of increased signal intensity 6 mm in size is present in the left kidney. These may represent small calculi. There are no filling defects in the urinary bladder. IMPRESSION: There are two small echogenic areas in the kidneys that may represent small calculi. Signed by Hernan Tang MD 01/22/2017 02:45 P
== END ==
LOC: M SMT 13:01
PROVIDERS: ATTEND Urology
DX: N20.0 Calculus of kidney (principal)

== ENCOUNTER → 2017-03-06 | Outpatient (REF) | payer MEDICARE, OTHER ==
[2017-03-06 19:31] LABS: BASO % 0.4 % (0.0-1.0); EOS # 0.1 10^3/uL (0.0-0.50); EOS % 1.7 % (0.0-3.0); IMMATURE GRANULOCYTE % 0.3 % (0-0); LYMPH # 1.5 10^3/uL (1.5-4.5); LYMPH % 20.9 % (24.0-44.0); MEAN CORPUSCULAR HEMOGLOBIN 29.4 pg (27.0-33.0); MEAN CORPUSCULAR HGB CONC 33.7 g/dl (32.0-36.5); MEAN CORPUSCULAR VOLUME 87.2 fl (80.0-96.0); MONO # 0.6 10^3/uL (0.0-0.8); MONO % 8.4 % (0.0-5.0); NEUTROPHILS # 4.9 10^3/uL (1.8-7.7); NEUTROPHILS % 68.3 % (36.0-66.0); PLATELET COUNT, AUTOMATED 154 10^3/uL (150-450); RED CELL DISTRIBUTION WIDTH 12.1 % (11.5-14.5); WHITE BLOOD COUNT 7.1 10^3/uL (4.0-10.0)
[2017-03-06 20:57] LABS: ALBUMIN 3.9 GM/DL (3.2-5.2); ALBUMIN/GLOBULIN RATIO 1.26 (1.00-1.93); BILIRUBIN,TOTAL 0.4 MG/DL (0.2-1.0); CALCIUM LEVEL 8.9 MG/DL (8.8-10.2); CREATININE FOR GFR 1.59 MG/DL (0.70-1.30); FREE T4 0.97 NG/DL (0.76-1.46); GLOMERULAR FILTRATION RATE 46.3 (>49); POTASSIUM SERUM 4.8 MEQ/L (3.5-5.1)
== END ==
LOC: M SFHCCAPE 07:27
PROVIDERS: ATTEND Physician Assistant
DX: I10 Essential (primary) hypertension (principal); E11.9 Type 2 diabetes mellitus without complications; Z12.5 Encounter for screening for malignant neoplasm of prostate
CPT/HCPCS: 36415; 80053; 80061; 82043; 84439; 84443; 85025; G0103

== ENCOUNTER → 2017-03-12 | Outpatient (REF) | payer MEDICARE, OTHER ==
[2017-03-12 17:43] LABS: ALBUMIN 3.8 GM/DL (3.2-5.2); ALBUMIN/GLOBULIN RATIO 1.19 (1.00-1.93); BILIRUBIN,TOTAL 0.3 MG/DL (0.2-1.0); CALCIUM LEVEL 8.7 MG/DL (8.8-10.2); CREATININE FOR GFR 1.3 MG/DL (0.70-1.30); GLOMERULAR FILTRATION RATE 58.4 (>49); POTASSIUM SERUM 4.4 MEQ/L (3.5-5.1)
[2017-03-12 18:03] LABS: BASO % 0.4 % (0.0-1.0); EOS # 0.2 10^3/uL (0.0-0.50); EOS % 1.8 % (0.0-3.0); IMMATURE GRANULOCYTE % 0.2 % (0-0); LYMPH # 1.5 10^3/uL (1.5-4.5); LYMPH % 17.5 % (24.0-44.0); MEAN CORPUSCULAR VOLUME 87.8 fl (80.0-96.0); MONO # 0.7 10^3/uL (0.0-0.8); NEUTROPHILS # 6.2 10^3/uL (1.8-7.7); NEUTROPHILS % 72.1 % (36.0-66.0); PLATELET COUNT, AUTOMATED 142 10^3/uL (150-450); RED CELL DISTRIBUTION WIDTH 12.1 % (11.5-14.5); WHITE BLOOD COUNT 8.6 10^3/uL (4.0-10.0)
== END ==
LOC: M SFHCCAPE 08:56
PROVIDERS: ATTEND Physician Assistant
DX: E11.9 Type 2 diabetes mellitus without complications (principal)
CPT/HCPCS: 80053; 83036; 85025; G0463

== ENCOUNTER → 2017-06-04 | Outpatient (REF) | payer MEDICARE, OTHER ==
[2017-06-04 18:38] LABS: ALBUMIN 3.9 GM/DL (3.2-5.2); ALBUMIN/GLOBULIN RATIO 1.18 (1.00-1.93); ALKALINE PHOSPHATASE 87 U/L (45-117); ALT/SGPT 23 U/L (12-78); ANION GAP 6 MEQ/L (8-16); AST/SGOT 12 U/L (7-37); BILIRUBIN,TOTAL 0.3 MG/DL (0.2-1.0); BLOOD UREA NITROGEN 26 MG/DL (7-18); CALCIUM LEVEL 8.3 MG/DL (8.8-10.2); CARBON DIOXIDE LEVEL 28 MEQ/L (21-32); CHLORIDE LEVEL 108 MEQ/L (98-107); CHOLESTEROL LEVEL 136 MG/DL (<200); CREATININE FOR GFR 1.43 MG/DL (0.70-1.30); GLOMERULAR FILTRATION RATE 52.2 (>49); GLUCOSE, FASTING 158 MG/DL (70-100); HDL CHOLESTEROL 40 MG/DL (>40); LDL CHOLESTEROL 61.2 MG/DL (<100); NON-HDL-C 96 MG/DL; POTASSIUM SERUM 4.7 MEQ/L (3.5-5.1); SODIUM LEVEL 142 MEQ/L (136-145); TOTAL PROTEIN 7.2 GM/DL (6.4-8.2); TRIGLYCERIDES LEVEL 174 MG/DL (<150)
[2017-06-04 18:57] LABS: BASO % 0.3 % (0.0-1.0); EOS # 0.1 10^3/uL (0.0-0.50); EOS % 1.7 % (0.0-3.0); HEMATOCRIT 41.5 % (42.0-52.0); HEMOGLOBIN 13.8 g/dl (14.0-18.0); IMMATURE GRANULOCYTE % 0.3 % (0-3.0); LYMPH # 1.7 10^3/uL (1.5-4.5); LYMPH % 24.3 % (24.0-44.0); MEAN CORPUSCULAR HEMOGLOBIN 28.6 pg (27.0-33.0); MEAN CORPUSCULAR HGB CONC 33.3 g/dl (32.0-36.5); MEAN CORPUSCULAR VOLUME 85.9 fl (80.0-96.0); MONO # 0.6 10^3/uL (0.0-0.8); MONO % 8.5 % (0.0-5.0); NEUTROPHILS # 4.5 10^3/uL (1.8-7.7); NEUTROPHILS % 64.9 % (36.0-66.0); PLATELET COUNT, AUTOMATED 151 10^3/uL (150-450); RED BLOOD COUNT 4.83 10^6/uL (4.30-6.10); RED CELL DISTRIBUTION WIDTH 12.8 % (11.5-14.5); WHITE BLOOD COUNT 6.9 10^3/uL (4.0-10.0)
[2017-06-04 19:33] LABS: ESTIMATED AVERAGE GLUCOSE 154 MG/DL (60-110)
== END ==
LOC: M SFHCCAPE 07:21
DX: E78.2 Mixed hyperlipidemia (principal); E11.9 Type 2 diabetes mellitus without complications
CPT/HCPCS: 80053

== ENCOUNTER → 2017-08-28 | Outpatient (REF) | payer MEDICARE, OTHER ==
[2017-08-28 17:05] LABS: BASO % 0.5 % (0.0-1.0); EOS # 0.2 10^3/uL (0.0-0.50); EOS % 1.8 % (0.0-3.0); HEMATOCRIT 39.1 % (42.0-52.0); HEMOGLOBIN 13.2 g/dl (13.5-17.5); IMMATURE GRANULOCYTE % 0.6 % (0-3.0); LYMPH # 1.7 10^3/uL (1.5-4.5); LYMPH % 19.9 % (24.0-44.0); MEAN CORPUSCULAR HEMOGLOBIN 29.5 pg (27.0-33.0); MEAN CORPUSCULAR HGB CONC 33.8 g/dl (32.0-36.5); MEAN CORPUSCULAR VOLUME 87.3 fl (80.0-96.0); MONO # 0.8 10^3/uL (0.0-0.8); MONO % 9.1 % (0.0-5.0); NEUTROPHILS # 5.8 10^3/uL (1.8-7.7); NEUTROPHILS % 68.1 % (36.0-66.0); PLATELET COUNT, AUTOMATED 132 10^3/uL (150-450); RED BLOOD COUNT 4.48 10^6/uL (4.30-6.10); RED CELL DISTRIBUTION WIDTH 12.7 % (11.5-14.5); WHITE BLOOD COUNT 8.5 10^3/uL (4.0-10.0)
[2017-08-28 17:15] LABS: ALBUMIN 3.8 GM/DL (3.2-5.2); ALBUMIN/GLOBULIN RATIO 1.12 (1.00-1.93); ALKALINE PHOSPHATASE 91 U/L (45-117); ALT/SGPT 32 U/L (12-78); ANION GAP 7 MEQ/L (8-16); AST/SGOT 17 U/L (7-37); BILIRUBIN,TOTAL 0.5 MG/DL (0.2-1.0); BLOOD UREA NITROGEN 29 MG/DL (7-18); CALCIUM LEVEL 8.4 MG/DL (8.8-10.2); CARBON DIOXIDE LEVEL 29 MEQ/L (21-32); CHLORIDE LEVEL 108 MEQ/L (98-107); CREATININE FOR GFR 1.51 MG/DL (0.70-1.30); GLUCOSE, FASTING 160 MG/DL (70-100); POTASSIUM SERUM 4.6 MEQ/L (3.5-5.1); SODIUM LEVEL 144 MEQ/L (136-145); TOTAL PROTEIN 7.2 GM/DL (6.4-8.2)
[2017-08-28 20:15] LABS: ESTIMATED AVERAGE GLUCOSE 160 MG/DL (60-110); HEMOGLOBIN A1c 7.2 %
== END ==
LOC: M SFHCCAPE 07:08
DX: E11.9 Type 2 diabetes mellitus without complications (principal)
CPT/HCPCS: 80053

== ENCOUNTER → 2017-09-12 | Outpatient (REF) | payer MEDICARE, OTHER ==
[2017-09-13 08:23] LABS: APPEARANCE, URINE CLOUDY (CLEAR); BACTERIA, URINE AUTO NEGATIVE (NEGATIVE); BILIRUBIN, URINE AUTO NEGATIVE (NEGATIVE); BLOOD, URINE BLOOD NEGATIVE (NEGATIVE); COLOR, URINE STRAW (YELLOW); GLUCOSE, URINE (UA) AUTO NEGATIVE (NEGATIVE); KETONE, URINE AUTO NEGATIVE (NEGATIVE); LEUKOCYTE ESTERASE, URINE AUTO NEGATIVE (NEGATIVE); NITRITE, URINE AUTO NEGATIVE (NEGATIVE); PROTEIN, URINE AUTO NEGATIVE (NEGATIVE); RBC, URINE AUTO 0 /HPF (0-3); SPECIFIC GRAVITY URINE AUTO 1.006 (1.002-1.035); SQUAMOUS EPITHELIAL CELL UR AU 0 /HPF (0-6); URIC ACID CRYSTALS LARGE; UROBILINOGEN, URINE AUTO 0.2 mg/dL (0.0-2.0); WBC, URINE AUTO 5 /HPF (0-3)
[2017-09-13 08:26] LABS: ALBUMIN 4.1 GM/DL (3.2-5.2); ALBUMIN/GLOBULIN RATIO 1.32 (1.00-1.93); ALKALINE PHOSPHATASE 91 U/L (45-117); ALT/SGPT 33 U/L (12-78); ANION GAP 6 MEQ/L (8-16); AST/SGOT 15 U/L (7-37); BILIRUBIN,TOTAL 0.4 MG/DL (0.2-1.0); BLOOD UREA NITROGEN 28 MG/DL (7-18); CALCIUM LEVEL 8.4 MG/DL (8.8-10.2); CARBON DIOXIDE LEVEL 27 MEQ/L (21-32); CHLORIDE LEVEL 105 MEQ/L (98-107); CREATININE FOR GFR 1.57 MG/DL (0.70-1.30); GLOMERULAR FILTRATION RATE 46.9 (>49); GLUCOSE, FASTING 164 MG/DL (70-100); POTASSIUM SERUM 4.7 MEQ/L (3.5-5.1); SODIUM LEVEL 138 MEQ/L (136-145); TOTAL PROTEIN 7.2 GM/DL (6.4-8.2)
[2017-09-13 08:27] LABS: CREATININE, URINE 54.2 MG/DL; MALB URINE SIEMENS 11.2 MG/L; MAU/CREAT RATIO 20.6 MCG/MG (0.0-30.0)
== END ==
LOC: M SFHCCAPE 08:13
DX: R79.89 Other specified abnormal findings of blood chemistry (principal); Z79.899 Other long term (current) drug therapy
CPT/HCPCS: 80053

== ENCOUNTER → 2017-09-17 | Outpatient (CLI) | payer MEDICARE, BC, OTHER | LOC: M RAD 11:53 | DX: R79.89 Other specified abnormal findings of blood chemistry (principal) | CPT/HCPCS: 76775 ==

== ENCOUNTER → 2017-12-06 | Outpatient (REF) | payer MEDICARE, OTHER ==
[2017-12-06 16:20] LABS: BASO % 0.3 % (0.0-1.0); EOS # 0.1 10^3/uL (0.0-0.50); EOS % 1.5 % (0.0-3.0); HEMATOCRIT 37.6 % (42.0-52.0); HEMOGLOBIN 12.5 g/dl (13.5-17.5); IMMATURE GRANULOCYTE % 0.3 % (0-3.0); LYMPH # 1.3 10^3/uL (1.5-4.5); LYMPH % 20.2 % (24.0-44.0); MEAN CORPUSCULAR HEMOGLOBIN 29.3 pg (27.0-33.0); MEAN CORPUSCULAR HGB CONC 33.2 g/dl (32.0-36.5); MEAN CORPUSCULAR VOLUME 88.1 fl (80.0-96.0); MONO # 0.5 10^3/uL (0.0-0.8); MONO % 8.3 % (0.0-5.0); NEUTROPHILS # 4.5 10^3/uL (1.8-7.7); NEUTROPHILS % 69.4 % (36.0-66.0); PLATELET COUNT, AUTOMATED 127 10^3/uL (150-450); RED BLOOD COUNT 4.27 10^6/uL (4.30-6.10); RED CELL DISTRIBUTION WIDTH 12.8 % (11.5-14.5); WHITE BLOOD COUNT 6.5 10^3/uL (4.0-10.0)
[2017-12-06 16:39] LABS: ESTIMATED AVERAGE GLUCOSE 146 MG/DL (60-110); HEMOGLOBIN A1c 6.7 %
[2017-12-06 16:41] LABS: ALBUMIN 3.8 GM/DL (3.2-5.2); ALBUMIN/GLOBULIN RATIO 1.19 (1.00-1.93); ALKALINE PHOSPHATASE 92 U/L (45-117); ALT/SGPT 24 U/L (12-78); ANION GAP 10 MEQ/L (8-16); AST/SGOT 10 U/L (7-37); BILIRUBIN,TOTAL 0.3 MG/DL (0.2-1.0); BLOOD UREA NITROGEN 44 MG/DL (7-18); CALCIUM LEVEL 8.5 MG/DL (8.8-10.2); CARBON DIOXIDE LEVEL 24 MEQ/L (21-32); CHLORIDE LEVEL 109 MEQ/L (98-107); CHOLESTEROL LEVEL 128 MG/DL (<200); CREATININE FOR GFR 1.67 MG/DL (0.70-1.30); GLOMERULAR FILTRATION RATE 43.6 (>49); GLUCOSE, FASTING 151 MG/DL (70-100); HDL CHOLESTEROL 32 MG/DL (>40); LDL CHOLESTEROL 58.4 MG/DL (<100); NON-HDL-C 96 MG/DL; POTASSIUM SERUM 5.1 MEQ/L (3.5-5.1); SODIUM LEVEL 143 MEQ/L (136-145); THYROID STIMULATING HORMONE 0.619 uIU/ML (0.358-3.740); TRIGLYCERIDES LEVEL 188 MG/DL (<150)
== END ==
LOC: M SFHCCAPE 06:58
DX: E78.2 Mixed hyperlipidemia (principal); I10 Essential (primary) hypertension; E11.9 Type 2 diabetes mellitus without complications
CPT/HCPCS: 84443

== ENCOUNTER → 2018-02-12 | Outpatient (CLI) | payer MEDICARE, BC, OTHER | LOC: M RAD 09:13 | DX: N20.0 Calculus of kidney (principal); K80.20 Calculus of gallbladder without cholecystitis without obstruction | CPT/HCPCS: 74176 ==

== ENCOUNTER → 2018-02-28 | Outpatient (CLI) | payer MEDICARE, BC, OTHER ==
[2018-02-28 15:13] LABS: ANION GAP 7 MEQ/L (8-16); BLOOD UREA NITROGEN 32 MG/DL (7-18); CARBON DIOXIDE LEVEL 27 MEQ/L (21-32); CHLORIDE LEVEL 103 MEQ/L (98-107); GLOMERULAR FILTRATION RATE 58.3 (>49); GLUCOSE, FASTING 118 MG/DL (70-100); POTASSIUM SERUM 4.5 MEQ/L (3.5-5.1); SODIUM LEVEL 137 MEQ/L (136-145)
[2018-02-28 15:27] LABS: APPEARANCE, URINE CLEAR (CLEAR); BACTERIA, URINE AUTO NEGATIVE (NEGATIVE); BILIRUBIN, URINE AUTO NEGATIVE (NEGATIVE); BLOOD, URINE BLOOD NEGATIVE (NEGATIVE); COLOR, URINE STRAW (YELLOW); GLUCOSE, URINE (UA) AUTO NEGATIVE (NEGATIVE); KETONE, URINE AUTO NEGATIVE (NEGATIVE); LEUKOCYTE ESTERASE, URINE AUTO NEGATIVE (NEGATIVE); NITRITE, URINE AUTO NEGATIVE (NEGATIVE); PROTEIN, URINE AUTO NEGATIVE (NEGATIVE); RBC, URINE AUTO 0 /HPF (0-3); SPECIFIC GRAVITY URINE AUTO 1.009 (1.002-1.035); SQUAMOUS EPITHELIAL CELL UR AU 0 /HPF (0-6); UROBILINOGEN, URINE AUTO 0.2 mg/dL (0.0-2.0); WBC, URINE AUTO 0 /HPF (0-3)
== END ==
LOC: M SMT 11:00
DX: N20.0 Calculus of kidney (principal)
CPT/HCPCS: 80048

== ENCOUNTER → 2018-03-13 | Outpatient (REF) | payer MEDICARE, OTHER ==
[2018-03-13 16:41] LABS: CALCIUM LEVEL 8.2 MG/DL (8.8-10.2); CREATININE FOR GFR 1.55 MG/DL (0.70-1.30); GLOMERULAR FILTRATION RATE 47.6 (>49); POTASSIUM SERUM 4.1 MEQ/L (3.5-5.1)
[2018-03-13 16:42] LABS: APPEARANCE, URINE CLEAR (CLEAR); BACTERIA, URINE AUTO NEGATIVE (NEGATIVE); BILIRUBIN, URINE AUTO NEGATIVE (NEGATIVE); BLOOD, URINE BLOOD 1+ (NEGATIVE); COLOR, URINE YELLOW (YELLOW); GLUCOSE, URINE (UA) AUTO NEGATIVE (NEGATIVE); KETONE, URINE AUTO NEGATIVE (NEGATIVE); LEUKOCYTE ESTERASE, URINE AUTO NEGATIVE (NEGATIVE); MUCUS, URINE SMALL (NEGATIVE); NITRITE, URINE AUTO NEGATIVE (NEGATIVE); PROTEIN, URINE AUTO NEGATIVE (NEGATIVE); RBC, URINE AUTO 0 /HPF (0-3); SPECIFIC GRAVITY URINE AUTO 1.017 (1.002-1.035); SQUAMOUS EPITHELIAL CELL UR AU 0 /HPF (0-6); UROBILINOGEN, URINE AUTO 0.2 mg/dL (0.0-2.0); WBC, URINE AUTO 0 /HPF (0-3)
[2018-03-13 16:50] LABS: ALBUMIN 3.7 GM/DL (3.2-5.2); BILIRUBIN,TOTAL 0.5 MG/DL (0.2-1.0); CALCIUM LEVEL 8.1 MG/DL (8.8-10.2); CHOLESTEROL RISK RATIO 4.029 (<5); CREATININE FOR GFR 1.57 MG/DL (0.70-1.30); GLOMERULAR FILTRATION RATE 46.9 (>49)
[2018-03-13 16:52] LABS: BASO # 0.1 10^3/uL (0.0-0.2); BASO % 0.5 % (0.0-1.0); EOS # 0.2 10^3/uL (0.0-0.50); EOS % 1.6 % (0.0-3.0); HEMATOCRIT 40.6 % (42.0-52.0); HEMOGLOBIN 13.5 g/dl (13.5-17.5); LYMPH # 1.4 10^3/uL (1.5-4.5); LYMPH % 14.2 % (24.0-44.0); MEAN CORPUSCULAR HEMOGLOBIN 28.9 pg (27.0-33.0); MEAN CORPUSCULAR HGB CONC 33.3 g/dl (32.0-36.5); MEAN CORPUSCULAR VOLUME 86.9 fl (80.0-96.0); MONO # 0.9 10^3/uL (0.0-0.8); MONO % 9.4 % (0.0-5.0); NEUTROPHILS # 7.1 10^3/uL (1.8-7.7); PLATELET COUNT, AUTOMATED 141 10^3/uL (150-450); RED BLOOD COUNT 4.67 10^6/uL (4.30-6.10); WHITE BLOOD COUNT 9.6 10^3/uL (4.0-10.0)
[2018-03-13 17:15] LABS: HEMOGLOBIN A1c 6.3 %
== END ==
LOC: M SFHCCAPE 07:58
PROVIDERS: ATTEND Physician Assistant
DX: N20.0 Calculus of kidney (principal); I10 Essential (primary) hypertension; E11.9 Type 2 diabetes mellitus without complications; E78.2 Mixed hyperlipidemia; M10.9 Gout, unspecified
CPT/HCPCS: 36415; 80053; 80061; 81001; 83036; 84550; 85025; 90670; 90682; G0008; G0009; G0463

== ENCOUNTER → 2018-03-27 | Outpatient (CLI) | payer MEDICARE, BC, OTHER ==
[2018-03-27 14:16] LABS: BACTERIA, URINE AUTO NEGATIVE (NEGATIVE); RBC, URINE AUTO 0 /HPF (0-3); SQUAMOUS EPITHELIAL CELL UR AU 0 /HPF (0-6); WBC, URINE AUTO 0 /HPF (0-3)
[2018-03-27 14:58] LABS: APPEARANCE, URINE CLEAR (CLEAR); BILIRUBIN, URINE AUTO NEGATIVE (NEGATIVE); BLOOD, URINE BLOOD NEGATIVE (NEGATIVE); COLOR, URINE STRAW (YELLOW); GLUCOSE, URINE (UA) AUTO NEGATIVE (NEGATIVE); KETONE, URINE AUTO NEGATIVE (NEGATIVE); LEUKOCYTE ESTERASE, URINE AUTO NEGATIVE (NEGATIVE); NITRITE, URINE AUTO NEGATIVE (NEGATIVE); PROTEIN, URINE AUTO NEGATIVE (NEGATIVE); SPECIFIC GRAVITY URINE AUTO 1.004 (1.002-1.035); UROBILINOGEN, URINE AUTO 0.2 mg/dL (0.0-2.0)
[2018-03-27 15:11] LABS: ANION GAP 11 MEQ/L (8-16); BLOOD UREA NITROGEN 31 MG/DL (7-18); CALCIUM LEVEL 8.8 MG/DL (8.8-10.2); CARBON DIOXIDE LEVEL 25 MEQ/L (21-32); CHLORIDE LEVEL 101 MEQ/L (98-107); CREATININE FOR GFR 1.41 MG/DL (0.70-1.30); GLOMERULAR FILTRATION RATE 53.1 (>49); GLUCOSE, FASTING 95 MG/DL (70-100); POTASSIUM SERUM 4.4 MEQ/L (3.5-5.1); SODIUM LEVEL 137 MEQ/L (136-145)
== END ==
LOC: M SMT 11:47
DX: N20.0 Calculus of kidney (principal)
CPT/HCPCS: 80048

== ENCOUNTER → 2018-04-19 | Outpatient (CLI) | payer MEDICARE, BC, OTHER ==
[2018-04-19 13:46] LABS: APPEARANCE, URINE CLEAR (CLEAR); BACTERIA, URINE AUTO NEGATIVE (NEGATIVE); BILIRUBIN, URINE AUTO NEGATIVE (NEGATIVE); BLOOD, URINE BLOOD NEGATIVE (NEGATIVE); COLOR, URINE STRAW (YELLOW); GLUCOSE, URINE (UA) AUTO NEGATIVE (NEGATIVE); KETONE, URINE AUTO NEGATIVE (NEGATIVE); LEUKOCYTE ESTERASE, URINE AUTO NEGATIVE (NEGATIVE); MUCUS, URINE SMALL (NEGATIVE); NITRITE, URINE AUTO NEGATIVE (NEGATIVE); PROTEIN, URINE AUTO NEGATIVE (NEGATIVE); RBC, URINE AUTO 0 /HPF (0-3); SPECIFIC GRAVITY URINE AUTO 1.006 (1.002-1.035); SQUAMOUS EPITHELIAL CELL UR AU 0 /HPF (0-6); UROBILINOGEN, URINE AUTO 0.2 mg/dL (0.0-2.0); WBC, URINE AUTO 0 /HPF (0-3)
[2018-04-19 13:52] LABS: CALCIUM LEVEL 8.6 MG/DL (8.8-10.2); CREATININE FOR GFR 1.39 MG/DL (0.70-1.30); GLOMERULAR FILTRATION RATE 53.9 (>49); POTASSIUM SERUM 4.5 MEQ/L (3.5-5.1)
== END ==
LOC: M SMT 11:09
PROVIDERS: ATTEND Nurse Practitioner Family
DX: N20.0 Calculus of kidney (principal)

== ENCOUNTER → 2018-05-01 | Outpatient (CLI) | payer MEDICARE, BC, OTHER ==
[2018-05-01 13:55] LABS: CALCIUM LEVEL 8.6 MG/DL (8.8-10.2); CREATININE FOR GFR 1.42 MG/DL (0.70-1.30); GLOMERULAR FILTRATION RATE 52.6 (>49); POTASSIUM SERUM 4.5 MEQ/L (3.5-5.1)
[2018-05-01 14:04] LABS: APPEARANCE, URINE CLEAR (CLEAR); BACTERIA, URINE AUTO NEGATIVE (NEGATIVE); BILIRUBIN, URINE AUTO NEGATIVE (NEGATIVE); BLOOD, URINE BLOOD NEGATIVE (NEGATIVE); COLOR, URINE YELLOW (YELLOW); GLUCOSE, URINE (UA) AUTO NEGATIVE (NEGATIVE); KETONE, URINE AUTO NEGATIVE (NEGATIVE); LEUKOCYTE ESTERASE, URINE AUTO NEGATIVE (NEGATIVE); MUCUS, URINE SMALL (NEGATIVE); NITRITE, URINE AUTO NEGATIVE (NEGATIVE); PROTEIN, URINE AUTO NEGATIVE (NEGATIVE); RBC, URINE AUTO 0 /HPF (0-3); SPECIFIC GRAVITY URINE AUTO 1.008 (1.002-1.035); SQUAMOUS EPITHELIAL CELL UR AU 2 /HPF (0-6); UROBILINOGEN, URINE AUTO 0.2 mg/dL (0.0-2.0); WBC, URINE AUTO 0 /HPF (0-3)
== END ==
LOC: M SMT 10:54
PROVIDERS: ATTEND Nurse Practitioner Family
DX: N20.0 Calculus of kidney (principal)

== ENCOUNTER → 2018-05-28 | Outpatient (REF) | payer MEDICARE, OTHER ==
[~2018-05-28] MED LIST changes: +HYDR12CA PO; +TRUL10IN SC; +ZYLO300T6 PO; +[UNRECOGNIZED DRUG - OTHER] PO
[2018-05-28 16:22] LABS: APPEARANCE, URINE CLEAR (CLEAR); BACTERIA, URINE AUTO NEGATIVE (NEGATIVE); BILIRUBIN, URINE AUTO NEGATIVE (NEGATIVE); BLOOD, URINE BLOOD NEGATIVE (NEGATIVE); COLOR, URINE STRAW (YELLOW); GLUCOSE, URINE (UA) AUTO 3+ mg/dL (NEGATIVE); KETONE, URINE AUTO NEGATIVE (NEGATIVE); LEUKOCYTE ESTERASE, URINE AUTO NEGATIVE (NEGATIVE); MUCUS, URINE SMALL (NEGATIVE); NITRITE, URINE AUTO NEGATIVE (NEGATIVE); PROTEIN, URINE AUTO NEGATIVE (NEGATIVE); RBC, URINE AUTO 0 /HPF (0-3); SPECIFIC GRAVITY URINE AUTO 1.011 (1.002-1.035); SQUAMOUS EPITHELIAL CELL UR AU 0 /HPF (0-6); UROBILINOGEN, URINE AUTO 0.2 mg/dL (0.0-2.0); WBC, URINE AUTO 0 /HPF (0-3)
[2018-05-28 16:30] LABS: CALCIUM LEVEL 8.3 MG/DL (8.8-10.2); CREATININE FOR GFR 1.42 MG/DL (0.70-1.30); GLOMERULAR FILTRATION RATE 52.6 (>49)
== END ==
LOC: M SFHCCAPE 07:15
PROVIDERS: ATTEND Nurse Practitioner Family
DX: N20.0 Calculus of kidney (principal)

== ENCOUNTER 2018-06-05 07:03 | Day surgery (SDC) | payer MEDICARE, BC, OTHER ==
[~2018-06-05] VITALS: Ht 180.3 cm; Wt 119.5 kg
[2018-06-05] MEDS ORDERED: NS 1,000 ML IV ONE (07:30)
--- NOTE | 2018-06-05 08:30 | ROOR ---
Patient Name: Hernan Piper Procedure Date: 06/05/2018 8:00 AM Date of : 1950 Age: 68 Room: [facility] Gender: Male Note Status: Finalized Procedure: Total Colonoscopy to Cecum + Cold Snare Polypectomy + Hemoclips Indications: High risk colon cancer surveillance: Personal history of colon cancer Providers: Geronimo Loja MD Referring MD: Lisandro Rashid Requesting Provider: Medicines: Monitored Anesthesia Care Complications: No immediate complications. Procedure: Pre-Anesthesia Assessment: - The heart rate, respiratory rate, oxygen saturations, blood pressure, adequacy of pulmonary ventilation, and response to care were monitored throughout the procedure. The Colonoscope was introduced through the anus and advanced to the cecum, identified by appendiceal orifice and ileocecal valve. The colonoscopy was performed without difficulty. The patient tolerated the procedure well. The quality of the bowel preparation was excellent. Findings: The perianal and digital rectal examinations were normal. Non-bleeding internal hemorrhoids were found during retroflexion. The hemorrhoids were small and Grade I (internal hemorrhoids that do not prolapse). Three sessile polyps were found at 65 cm proximal to the anus. The polyps were medium in size. These polyps were removed with a cold snare. Resection and retrieval were complete. To prevent bleeding after the polypectomy, three hemostatic clips were successfully placed (MR conditional). There was no bleeding at the end of the procedure. A medium polyp was found at 50 cm proximal to the anus. The polyp was semi-pedunculated. The polyp was removed with a cold snare. Resection and retrieval were complete. To prevent bleeding after the polypectomy, one hemostatic clip was successfully placed (MR conditional). There was no bleeding at the end of the procedure. The exam was otherwise without abnormality on direct and retroflexion views. Impression: - Non-bleeding internal hemorrhoids. - Three medium polyps at 65 cm proximal to the anus, removed with a cold snare. Resected and retrieved. Clips (MR conditional) were placed. - One medium polyp at 50 cm proximal to the anus, removed with a cold snare. Resected and retrieved. Clip (MR conditional) was placed. - The examination was otherwise normal on direct and retroflexion views. - The exam was otherwise normal to the cecum. Recommendation: - Patient has a contact number available for emergencies. The signs and symptoms of potential delayed complications were discussed with the patient. Return to normal activities tomorrow. Written discharge instructions were provided to the patient. - High fiber diet. - Discharge patient to home. - Continue present medications. - Await pathology results. - Telephone GI clinic for pathology results in 1 week. - Repeat colonoscopy for surveillance based on pathology results. - Return to referring physician. - The findings and recommendations were discussed with the patient's family. Geronimo Loja MD Geronimo Loja MD 06/05/2018 8:29:44 AM This report has been signed electronically. Number of Addenda: 0 Note Initiated On: 06/05/2018 8:00 AM Estimated Blood Loss: Estimated blood loss: none.
[2018-06-05 08:50] VITALS: BP 123/64
[2018-06-05] MEDS ORDERED: PROPOFOL 200 MG/20 ML VIAL As Ordered ONE (09:43)
== END 2018-06-05 09:05 | disposition home or self-care (01) ==
LOC: M OPP 07:03
PROVIDERS: ATTEND Internal Medicine Gastroenterology
DX: Z12.11 Encounter for screening for malignant neoplasm of colon (principal); Z85.038 Personal history of other malignant neoplasm of large intestine; D12.6 Benign neoplasm of colon, unspecified; K64.0 First degree hemorrhoids; G47.30 Sleep apnea, unspecified; Z79.82 Long term (current) use of aspirin; Z79.84 Long term (current) use of oral hypoglycemic drugs; Z79.899 Other long term (current) drug therapy; Z88.2 Allergy status to sulfonamides; Z88.5 Allergy status to narcotic agent; Z88.8 Allergy status to other drugs, medicaments and biological substances; Z91.011 Allergy to milk products

== ENCOUNTER → 2018-06-27 | Outpatient (REF) | payer MEDICARE, OTHER ==
[2018-06-27 17:34] LABS: ALBUMIN 3.9 GM/DL (3.2-5.2); BILIRUBIN,TOTAL 0.6 MG/DL (0.2-1.0); CALCIUM LEVEL 8.1 MG/DL (8.8-10.2); CHOLESTEROL RISK RATIO 3.837 (<5); CREATININE FOR GFR 1.45 MG/DL (0.70-1.30); GLOMERULAR FILTRATION RATE 51.2 (>42); POTASSIUM SERUM 4.3 MEQ/L (3.5-5.1); THYROID STIMULATING HORMONE 0.926 uIU/ML (0.358-3.740); TOTAL PROTEIN 7.2 GM/DL (6.4-8.2); URIC ACID 5.9 MG/DL (3.5-7.2)
[2018-06-27 17:38] LABS: BASO % 0.4 % (0.0-1.0); EOS # 0.1 10^3/uL (0.0-0.50); EOS % 1.9 % (0.0-3.0); HEMATOCRIT 44.4 % (42.0-52.0); HEMOGLOBIN 14.5 g/dl (13.5-17.5); LYMPH # 1.4 10^3/uL (1.5-4.5); LYMPH % 18.9 % (24.0-44.0); MALB URINE SIEMENS 86.4 MG/L; MAU/CREAT RATIO 64.4 MCG/MG (0.0-30.0); MEAN CORPUSCULAR HEMOGLOBIN 28.3 pg (27.0-33.0); MEAN CORPUSCULAR HGB CONC 32.7 g/dl (32.0-36.5); MEAN CORPUSCULAR VOLUME 86.5 fl (80.0-96.0); MONO # 0.7 10^3/uL (0.0-0.8); MONO % 8.8 % (0.0-5.0); NEUTROPHILS # 5.2 10^3/uL (1.8-7.7); NEUTROPHILS % 69.6 % (36.0-66.0); PLATELET COUNT, AUTOMATED 141 10^3/uL (150-450); RED BLOOD COUNT 5.13 10^6/uL (4.30-6.10); WHITE BLOOD COUNT 7.5 10^3/uL (4.0-10.0)
[2018-06-27 18:00] LABS: HEMOGLOBIN A1c 6.9 %
== END ==
LOC: M SFHCCAPE 07:51
PROVIDERS: ATTEND Physician Assistant
DX: E78.2 Mixed hyperlipidemia (principal); I10 Essential (primary) hypertension; E11.9 Type 2 diabetes mellitus without complications; N20.0 Calculus of kidney; M10.9 Gout, unspecified

== ENCOUNTER → 2018-07-30 | Outpatient (CLI) | payer MEDICARE, BC, OTHER ==
[~2018-07-30] MED LIST changes: -ASPI1TAB PO; +ASPI81TA26 PO; -NORC1TAB4 PO; +NORC1TAB7 PO
[2018-07-30 19:16] LABS: APPEARANCE, URINE CLEAR (CLEAR); BACTERIA, URINE AUTO NEGATIVE (NEGATIVE); BILIRUBIN, URINE AUTO NEGATIVE (NEGATIVE); BLOOD, URINE BLOOD 1+ (NEGATIVE); COLOR, URINE YELLOW (YELLOW); GLUCOSE, URINE (UA) AUTO NEGATIVE (NEGATIVE); KETONE, URINE AUTO NEGATIVE (NEGATIVE); LEUKOCYTE ESTERASE, URINE AUTO NEGATIVE (NEGATIVE); NITRITE, URINE AUTO NEGATIVE (NEGATIVE); PROTEIN, URINE AUTO NEGATIVE (NEGATIVE); RBC, URINE AUTO 1 /HPF (0-3); SPECIFIC GRAVITY URINE AUTO 1.012 (1.002-1.035); SQUAMOUS EPITHELIAL CELL UR AU 0 /HPF (0-6); UROBILINOGEN, URINE AUTO 0.2 mg/dL (0.0-2.0); WBC, URINE AUTO 1 /HPF (0-3)
[2018-07-30 19:25] LABS: CALCIUM LEVEL 8.9 MG/DL (8.8-10.2); CREATININE FOR GFR 1.33 MG/DL (0.70-1.30); GLOMERULAR FILTRATION RATE 56.6 (>42); POTASSIUM SERUM 4.2 MEQ/L (3.5-5.1)
== END ==
LOC: M SMT 13:50
PROVIDERS: ATTEND Nurse Practitioner Family
DX: N20.0 Calculus of kidney (principal)

== ENCOUNTER → 2018-09-19 | Outpatient (REF) | payer MEDICARE, OTHER | LOC: M SMT 13:29 | PROVIDERS: ATTEND Nurse Practitioner Family | DX: Z12.5 Encounter for screening for malignant neoplasm of prostate (principal) ==

== ENCOUNTER → 2018-10-01 | Outpatient (REF) | payer MEDICARE, OTHER ==
[2018-10-01 17:21] LABS: HEMOGLOBIN A1c 7.4 %
[2018-10-01 17:24] LABS: BASO % 0.4 % (0.0-1.0); EOS # 0.1 10^3/uL (0.0-0.50); HEMATOCRIT 42.2 % (42.0-52.0); LYMPH # 1.5 10^3/uL (1.5-4.5); LYMPH % 21.5 % (24.0-44.0); MEAN CORPUSCULAR HEMOGLOBIN 28.9 pg (27.0-33.0); MEAN CORPUSCULAR HGB CONC 33.2 g/dl (32.0-36.5); MEAN CORPUSCULAR VOLUME 87.2 fl (80.0-96.0); MONO # 0.6 10^3/uL (0.0-0.8); MONO % 7.7 % (0.0-5.0); NEUTROPHILS # 4.8 10^3/uL (1.8-7.7); NEUTROPHILS % 68.1 % (36.0-66.0); PLATELET COUNT, AUTOMATED 140 10^3/uL (150-450); RED BLOOD COUNT 4.84 10^6/uL (4.30-6.10); WHITE BLOOD COUNT 7.1 10^3/uL (4.0-10.0)
[2018-10-01 17:33] LABS: BILIRUBIN,TOTAL 0.4 MG/DL (0.2-1.0); CALCIUM LEVEL 8.7 MG/DL (8.8-10.2); CHOLESTEROL RISK RATIO 4.193 (<5); CREATININE FOR GFR 1.73 MG/DL (0.70-1.30); GLOMERULAR FILTRATION RATE 41.8 (>42); POTASSIUM SERUM 4.8 MEQ/L (3.5-5.1); TOTAL PROTEIN 7.3 GM/DL (6.4-8.2)
== END ==
LOC: M SFHCCAPE 07:27
PROVIDERS: ATTEND Physician Assistant
DX: I10 Essential (primary) hypertension (principal); E11.9 Type 2 diabetes mellitus without complications; E78.2 Mixed hyperlipidemia

== ENCOUNTER → 2018-12-25 | Outpatient (REF) | payer MEDICARE, OTHER ==
[~2018-12-25] MED LIST changes: -METF750T PO; +METF750T36 PO
[2018-12-25 16:53] LABS: BASO % 0.6 % (0.0-1.0); EOS # 0.1 10^3/uL (0.0-0.5); EOS % 1.9 % (0.0-3.0); HEMATOCRIT 39.7 % (42.0-52.0); HEMOGLOBIN 13.3 g/dl (13.5-17.5); LYMPH # 1.3 10^3/uL (1.5-5.0); LYMPH % 21.7 % (24.0-44.0); MEAN CORPUSCULAR HEMOGLOBIN 29.8 pg (27.0-33.0); MEAN CORPUSCULAR HGB CONC 33.5 g/dl (32.0-36.5); MONO # 0.6 10^3/uL (0.0-0.8); MONO % 9.2 % (0.0-5.0); NEUTROPHILS # 4.1 10^3/uL (1.5-8.5); NEUTROPHILS % 66.3 % (36.0-66.0); PLATELET COUNT, AUTOMATED 119 10^3/uL (150-450); RED BLOOD COUNT 4.46 10^6/uL (4.30-6.10); WHITE BLOOD COUNT 6.2 10^3/uL (4.0-10.0)
[2018-12-25 17:05] LABS: ALBUMIN 3.8 GM/DL (3.2-5.2); BILIRUBIN,TOTAL 0.6 MG/DL (0.2-1.0); CALCIUM LEVEL 8.7 MG/DL (8.8-10.2); CHOLESTEROL RISK RATIO 3.97 (<5); CREATININE FOR GFR 1.64 MG/DL (0.70-1.30); GLOMERULAR FILTRATION RATE 44.4 (>42); POTASSIUM SERUM 4.5 MEQ/L (3.5-5.1); THYROID STIMULATING HORMONE 1.29 uIU/ML (0.358-3.740); TOTAL PROTEIN 6.7 GM/DL (6.4-8.2); URIC ACID 6.5 MG/DL (3.5-7.2)
== END ==
LOC: M SFHCCAPE 07:13
PROVIDERS: ATTEND Physician Assistant
DX: E11.9 Type 2 diabetes mellitus without complications (principal); M10.9 Gout, unspecified

== ENCOUNTER → 2019-02-05 | Outpatient (CLI) | payer MEDICARE, BC, OTHER ==
--- NOTE | 2019-02-05 17:19 | REP ---
REASON FOR EXAM: Followup. COMPARISON: 09/17/2017 which showed changes consistent with medical renal disease and age related change along with nonobstructing tiny calculi bilaterally. Right kidney measured 10.5 x 4.3 x 3.6 cm. The renal cortex is thinned and seen with diffusely increased echoes along with poor cortical medullary differentiation. There are no cystic or solid masses. The left kidney measures 13.3 x 4.5 x 4.9 cm. The appearance of the left kidney is similar to that of the right. There are no cystic or solid masses. IMPRESSION:No significant change from the prior exam. There is evidence of age-related change and findings consistent with medical renal disease. Electronically Signed by Jacob Agrawal DO 02/06/2019 11:47 A
--- NOTE | 2019-02-05 17:44 | REP ---
REASON FOR EXAM: History of renal calculi. Multiple ultrasonographic images of the urinary bladder show the prevoid urinary bladder volume calculation to be 385.13 mL and the postvoid urinary bladder volume calculation to be 33.8 mL. No gross masses are identified. Urojet phenomenon could not be confirmed bilaterally. No echogenic foci were seen within the urinary bladder that would be considered consistent with cystoliths. IMPRESSION:As above. Electronically Signed by Jacob Agrawal DO 02/06/2019 11:48 A
== END ==
LOC: M RAD 14:19
PROVIDERS: ATTEND Nurse Practitioner Family
DX: N20.0 Calculus of kidney (principal)

== ENCOUNTER → 2019-02-24 | Outpatient (CLI) | payer MEDICARE, BC, OTHER ==
--- NOTE | 2019-02-24 15:42 | REP ---
Four views left wrist: 02/24/2019. Indication: Left wrist pain. Comparison: None. Findings: There is no acute fracture, subluxation or dislocation. Osteoarthritic changes are present most notably involving the first and second carpal metacarpal joints. No acute soft tissue injuries are detected. Impression: No fracture or additional acute pathology. Chronic arthritic changes most pronounced involving the first carpal metacarpal joint. Electronically Signed by Umesh Cameron DO 02/24/2019 03:32 P
== END ==
LOC: M WUC 11:18
PROVIDERS: ATTEND Physician Assistant
DX: M25.532 Pain in left wrist (principal); M19.032 Primary osteoarthritis, left wrist

== ENCOUNTER → 2019-03-17 | Outpatient (CLI) | payer MEDICARE, BC, OTHER ==
[~2019-03-17] MED LIST changes: +CLOB0.0548
--- NOTE | 2019-03-17 10:11 | REP ---
Clinical: Thrombocytopenia. Technique: Real time cage scale and color evaluation using curved array transducer. Findings: Liver is hyperechoic with poor through transmission suggesting fatty infiltration. No obvious focal hepatic lesion identified. Pancreas is incompletely evaluated due to interposed bowel gas and visualized portions appear normal. The spleen is enlarged and measures 13.9 x 13.0 x 4.7 cm (SI 149). Gallbladder demonstrates layering sludge/small gallstones without pericholecystic fluid or biliary ductal dilatation. Common bile duct measures 4.4 mm diameter. Kidneys demonstrate cortical thinning suggesting chronic medical renal disease without hydronephrosis. Right kidney measures 12.8 x 5.1 x 6.2 cm. Left kidney measures 14.0 x 5.4 x 5.4 cm. Abdominal aorta is normal and measures 2.4 cm maximal diameter. No ascites. Impression: 1. Splenomegaly without obvious focal splenic lesion identified. 2. Hepatic steatosis. 3. Chronic age-related medical renal disease. Electronically Signed by Manuel Bustos MD 03/17/2019 10:04 A
== END ==
LOC: M RAD 07:54
PROVIDERS: ATTEND Internal Medicine Hematology
DX: D69.6 Thrombocytopenia, unspecified (principal); R16.1 Splenomegaly, not elsewhere classified; K76.0 Fatty (change of) liver, not elsewhere classified; N18.9 Chronic kidney disease, unspecified

== ENCOUNTER → 2019-03-27 | Outpatient (REF) | payer MEDICARE, OTHER ==
[~2019-03-27] MED LIST changes: +SODI650T PO
[2019-03-27 17:21] LABS: BASO % 0.4 % (0.0-1.0); EOS # 0.1 10^3/uL (0.0-0.5); EOS % 1.5 % (0.0-3.0); HEMATOCRIT 43.6 % (42.0-52.0); HEMOGLOBIN 14.4 g/dl (13.5-17.5); LYMPH # 1.6 10^3/uL (1.5-5.0); LYMPH % 23.3 % (24.0-44.0); MEAN CORPUSCULAR HEMOGLOBIN 29.8 pg (27.0-33.0); MEAN CORPUSCULAR VOLUME 90.3 fl (80.0-96.0); MONO # 0.7 10^3/uL (0.0-0.8); MONO % 9.6 % (0.0-5.0); NEUTROPHILS # 4.4 10^3/uL (1.5-8.5); NEUTROPHILS % 64.9 % (36.0-66.0); PLATELET COUNT, AUTOMATED 133 10^3/uL (150-450); RED BLOOD COUNT 4.83 10^6/uL (4.30-6.10); WHITE BLOOD COUNT 6.8 10^3/uL (4.0-10.0)
[2019-03-27 17:39] LABS: ALBUMIN 3.8 GM/DL (3.2-5.2); BILIRUBIN,TOTAL 0.4 MG/DL (0.2-1.0); CALCIUM LEVEL 8.9 MG/DL (8.8-10.2); CHOLESTEROL RISK RATIO 3.828 (<5); CREATININE FOR GFR 1.78 MG/DL (0.70-1.30); GLOMERULAR FILTRATION RATE 40.4 (>42); POTASSIUM SERUM 4.4 MEQ/L (3.5-5.1); THYROID STIMULATING HORMONE 1.17 uIU/ML (0.358-3.740); TOTAL PROTEIN 7.1 GM/DL (6.4-8.2); URIC ACID 6.4 MG/DL (3.5-7.2)
[2019-03-27 18:18] LABS: HEMOGLOBIN A1c 7.1 %
== END ==
LOC: M SFHCCAPE 07:15
PROVIDERS: ATTEND Physician Assistant
DX: E11.9 Type 2 diabetes mellitus without complications (principal); M10.9 Gout, unspecified
CPT/HCPCS: 36415; 80053; 80061; 83036; 84443; 84550; 85025; 90682; 90732; G0008; G0009

== ENCOUNTER 2019-05-20 20:06 | Emergency (ER) | payer MEDICARE, BC, OTHER ==
[~2019-05-20] VITALS: Ht 180.3 cm; Wt 122.7 kg
[2019-05-20 21:09] VITALS: BP 121/57
--- NOTE | 2019-05-20 22:18 | REPVR ---
PROCEDURE INFORMATION: Exam: US Duplex Left Lower Extremity Veins, Limited Exam date and time: 05/20/2019 10:11 PM Age: 68 years old Clinical indication: Swelling (edema) of limb; Lower extremity, left; Additional info: Swelling to left foot since Sunday, negtive xray, elevated TECHNIQUE: Imaging protocol: Real-time Duplex ultrasound of the Left Lower Extremity with 2-D cage scale, color Doppler flow and spectral waveform analysis with image documentation. Limited exam focused on the left lower extremity veins. COMPARISON: No relevant prior studies available. FINDINGS: Veins evaluated include common femoral, saphenofemoral junction, femoral and popliteal Veins appear normally compressible with no intraluminal filling defects. Doppler waveforms and flow directionality are normal. No abnormal focal fluid collections identified. IMPRESSION: No evidence of deep venous thrombosis in the left lower extremity venous system. Electronically signed by: Amauri Glass On 05/20/2019 22:18:33 PM
== END 2019-05-20 22:46 | disposition home or self-care (01) ==
LOC: M ED 20:06
DX: L03.116 Cellulitis of left lower limb (principal); E11.9 Type 2 diabetes mellitus without complications; E78.5 Hyperlipidemia, unspecified; G47.30 Sleep apnea, unspecified; M54.9 Dorsalgia, unspecified; Z87.442 Personal history of urinary calculi; Z79.82 Long term (current) use of aspirin; Z79.899 Other long term (current) drug therapy; Z88.2 Allergy status to sulfonamides; Z88.5 Allergy status to narcotic agent; Z88.8 Allergy status to other drugs, medicaments and biological substances
CPT/HCPCS: 93971; 99284; G0463

== ENCOUNTER → 2019-05-20 | Outpatient (CLI) | payer MEDICARE, BC, OTHER ==
[2019-05-20 17:17] LABS: BASO % 0.5 % (0.0-1.0); EOS # 0.1 10^3/uL (0.0-0.5); EOS % 1.6 % (0.0-3.0); HEMATOCRIT 44.2 % (42.0-52.0); HEMOGLOBIN 14.2 g/dl (13.5-17.5); LYMPH % 23.4 % (24.0-44.0); MEAN CORPUSCULAR HEMOGLOBIN 28.7 pg (27.0-33.0); MEAN CORPUSCULAR HGB CONC 32.1 g/dl (32.0-36.5); MEAN CORPUSCULAR VOLUME 89.3 fl (80.0-96.0); MONO # 1.1 10^3/uL (0.0-0.8); MONO % 12.4 % (0.0-5.0); NEUTROPHILS # 5.4 10^3/uL (1.5-8.5); NEUTROPHILS % 61.8 % (36.0-66.0); PLATELET COUNT, AUTOMATED 134 10^3/uL (150-450); RED BLOOD COUNT 4.95 10^6/uL (4.30-6.10); WHITE BLOOD COUNT 8.7 10^3/uL (4.0-10.0)
--- NOTE | 2019-05-20 17:23 | REP ---
Left foot series: Four views. History: Swelling. Comparison: Left foot radiographs are from October 29, 2014. Findings: There is diffuse forefoot swelling. Overall mineralization pattern is somewhat decreased. No acute bony destructive lesion is seen. No soft tissue gas or opaque foreign body is appreciated. No fracture is noted. There is heel spurring. Impression: No acute bony abnormality. Diffuse soft tissue swelling. Some heel spurring. Electronically Signed by Rogelio Dinero MD 05/20/2019 07:38 P
[2019-05-20 17:43] LABS: ALBUMIN 3.8 GM/DL (3.2-5.2); BILIRUBIN,TOTAL 0.3 MG/DL (0.2-1.0); CALCIUM LEVEL 8.4 MG/DL (8.8-10.2); CREATININE FOR GFR 1.65 MG/DL (0.70-1.30); GLOMERULAR FILTRATION RATE 44.1 (>42); POTASSIUM SERUM 4.6 MEQ/L (3.5-5.1); URIC ACID 5.5 MG/DL (3.5-7.2)
== END ==
LOC: M WUC 15:58
PROVIDERS: ATTEND Physician Assistant
DX: M79.672 Pain in left foot (principal); M79.89 Other specified soft tissue disorders

== ENCOUNTER → 2019-06-30 | Outpatient (REF) | payer MEDICARE, OTHER ==
[2019-06-30 16:48] LABS: BASO % 0.5 % (0.0-1.0); EOS # 0.2 10^3/uL (0.0-0.5); EOS % 2.1 % (0.0-3.0); HEMATOCRIT 43.5 % (42.0-52.0); HEMOGLOBIN 14.6 g/dl (13.5-17.5); LYMPH # 1.7 10^3/uL (1.5-5.0); LYMPH % 21.8 % (24.0-44.0); MEAN CORPUSCULAR HEMOGLOBIN 29.3 pg (27.0-33.0); MEAN CORPUSCULAR HGB CONC 33.6 g/dl (32.0-36.5); MEAN CORPUSCULAR VOLUME 87.3 fl (80.0-96.0); MONO # 0.7 10^3/uL (0.0-0.8); MONO % 8.9 % (0.0-5.0); NEUTROPHILS # 5.3 10^3/uL (1.5-8.5); NEUTROPHILS % 66.4 % (36.0-66.0); PLATELET COUNT, AUTOMATED 132 10^3/uL (150-450); RED BLOOD COUNT 4.98 10^6/uL (4.30-6.10); WHITE BLOOD COUNT 7.9 10^3/uL (4.0-10.0)
[2019-06-30 17:16] LABS: ALBUMIN 3.8 GM/DL (3.2-5.2); BILIRUBIN,TOTAL 0.5 MG/DL (0.2-1.0); CALCIUM LEVEL 8.8 MG/DL (8.8-10.2); CHOLESTEROL RISK RATIO 5.035 (<5); CREATININE FOR GFR 1.68 MG/DL (0.70-1.30); GLOMERULAR FILTRATION RATE 43.1 (>42); THYROID STIMULATING HORMONE 1.26 uIU/ML (0.358-3.740); TOTAL PROTEIN 6.9 GM/DL (6.4-8.2); URIC ACID 5.8 MG/DL (3.5-7.2)
[2019-06-30 17:24] LABS: MALB URINE SIEMENS 43.1 MG/L; MAU/CREAT RATIO 42.2 MCG/MG (0.0-30.0)
[2019-06-30 17:44] LABS: HEMOGLOBIN A1c 7.6 %
== END ==
LOC: M SFHCCAPE 07:00
PROVIDERS: ATTEND Physician Assistant
DX: D69.6 Thrombocytopenia, unspecified (principal); E78.2 Mixed hyperlipidemia; E11.9 Type 2 diabetes mellitus without complications; M10.9 Gout, unspecified

== ENCOUNTER → 2019-08-21 | Outpatient (CLI) | payer MEDICARE, BC ==
--- NOTE | 2019-08-21 11:40 | REP ---
RENAL ULTRASOUND: Real-time sonographic evaluation of the kidneys performed. There is bilateral cortical thinning. Right kidney measures 9.4 x 4.9 x 4.6 cm and left kidney 12.5 x 6.0 x 6.3 cm. There is no hydronephrosis. No renal mass is seen. No definite renal stone is seen. Resistive index with duplex Doppler evaluation in the right kidney is 0.62 and left kidney 0.47. IMPRESSION: Bilateral cortical thinning with no hydronephrosis or definite renal calculus.
== END ==
LOC: M WHC 09:49
PROVIDERS: ATTEND Nurse Practitioner Family
DX: N20.0 Calculus of kidney (principal)

== ENCOUNTER 2019-12-08 07:40 | Day surgery (SDC) | payer MEDICARE, BC, OTHER ==
[~2019-12-08] VITALS: Ht 180.3 cm; Wt 118.4 kg
[~2019-12-08 07:40] MED LIST changes: +OSTE1TAB2 PO
[2019-12-08] MEDS ORDERED: NS 1,000 ML IV ONE (08:45)
[2019-12-08] MEDS ORDERED: LIDOCAINE 2% 100MG/5ML SDV (FOR ANES.) As Ordered ONE (09:12)
[2019-12-08] MEDS ORDERED: propofoL 500 MG/50 ML VIAL As Ordered ONE (09:12)
[2019-12-08 09:40] VITALS: BP 147/93
--- NOTE | 2019-12-24 11:29 | ROOR ---
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 Procedure: Pre-Anesthesia Assessment: - The heart rate, respiratory rate, oxygen saturations, blood pressure, adequacy of pulmonary ventilation, and response to care were monitored throughout the procedure. The Colonoscope was introduced through the anus and advanced to the cecum, identified by appendiceal orifice and ileocecal valve. The colonoscopy was performed without difficulty. The patient tolerated the procedure well. The quality of the bowel preparation was excellent. Findings: The perianal and digital rectal examinations were normal. Non-bleeding internal hemorrhoids were found during retroflexion. The hemorrhoids were small and Grade I (internal hemorrhoids that do not prolapse). Multiple small and large-mouthed diverticula were found in the recto-sigmoid colon, sigmoid colon and descending colon. A small polyp was found at 60 cm proximal to the anus. The polyp was sessile. The polyp was removed with a cold snare. Resection and retrieval were complete. To prevent bleeding after the polypectomy, one hemostatic clip was successfully placed (MR conditional). There was no bleeding at the end of the procedure. The exam was otherwise without abnormality on direct and retroflexion views. Impression: - Non-bleeding internal hemorrhoids. - Diverticulosis in the recto-sigmoid colon, in the sigmoid colon and in the descending colon. - One small polyp at 60 cm proximal to the anus, removed with a cold snare. Resected and retrieved. Clip (MR conditional) was placed. - The examination was otherwise normal on direct and retroflexion views. - The exam was otherwise normal to the cecum. Recommendation: - Patient has a contact number available for emergencies. The signs and symptoms of potential delayed complications were discussed with the patient. Return to normal activities tomorrow. Written discharge instructions were provided to the patient. - High fiber diet. - Discharge patient to home. - Continue present medications. - Await pathology results. - Telephone GI clinic for pathology results in 1 week. - Repeat colonoscopy in 4 years for surveillance based on pathology results. - Return to referring physician. - The findings and recommendations were discussed with the patient. Geronimo Loja MD 12/08/2019 9:20:50 AM Number of Addenda: 0 Note Initiated On: 12/08/2019 8:13 AM Estimated Blood Loss: Estimated blood loss: none.
== END 2019-12-08 09:46 | disposition home or self-care (01) ==
LOC: M OPP 07:40
PROVIDERS: ATTEND Internal Medicine Gastroenterology
DX: Z86.010 Personal history of colon polyps (principal); Z85.038 Personal history of other malignant neoplasm of large intestine; Z09 Encounter for follow-up examination after completed treatment for conditions other than malignant neoplasm; K64.0 First degree hemorrhoids; K63.5 Polyp of colon; E11.9 Type 2 diabetes mellitus without complications; I10 Essential (primary) hypertension; Z79.82 Long term (current) use of aspirin; Z79.84 Long term (current) use of oral hypoglycemic drugs; Z79.899 Other long term (current) drug therapy; Z88.2 Allergy status to sulfonamides; Z88.5 Allergy status to narcotic agent; Z91.011 Allergy to milk products

== ENCOUNTER → 2019-12-30 | Outpatient (REF) | payer MEDICARE, BC, OTHER | LOC: M SFHCCLAY 16:06 | PROVIDERS: ATTEND Physician Assistant | DX: L08.9 Local infection of the skin and subcutaneous tissue, unspecified (principal) ==

== ENCOUNTER → 2020-01-08 | Outpatient (REF) | payer MEDICARE, BC, OTHER ==
[2020-01-08 12:31] LABS: BASO % 0.6 % (0.0-1.0); EOS # 0.1 10^3/uL (0.0-0.5); EOS % 1.8 % (0.0-3.0); HEMATOCRIT 42.4 % (42.0-52.0); HEMOGLOBIN 14.2 g/dl (13.5-17.5); LYMPH # 1.5 10^3/uL (1.5-5.0); LYMPH % 22.4 % (24.0-44.0); MEAN CORPUSCULAR HEMOGLOBIN 29.3 pg (27.0-33.0); MEAN CORPUSCULAR HGB CONC 33.5 g/dl (32.0-36.5); MEAN CORPUSCULAR VOLUME 87.4 fl (80.0-96.0); MONO # 0.7 10^3/uL (0.0-0.8); MONO % 10.8 % (0.0-5.0); NEUTROPHILS # 4.4 10^3/uL (1.5-8.5); NEUTROPHILS % 64.1 % (36.0-66.0); PLATELET COUNT, AUTOMATED 131 10^3/uL (150-450); RED BLOOD COUNT 4.85 10^6/uL (4.30-6.10); WHITE BLOOD COUNT 6.8 10^3/uL (4.0-10.0)
[2020-01-08 12:42] LABS: BILIRUBIN,TOTAL 0.5 MG/DL (0.2-1.0); CALCIUM LEVEL 8.9 MG/DL (8.8-10.2); CREATININE FOR GFR 1.73 MG/DL (0.70-1.30); GLOMERULAR FILTRATION RATE 41.7 (>42); POTASSIUM SERUM 4.4 MEQ/L (3.5-5.1)
[2020-01-08 12:43] LABS: ALBUMIN 3.6 GM/DL (3.2-5.2); CHOLESTEROL RISK RATIO 3.871 (<5); THYROID STIMULATING HORMONE 1.13 uIU/ML (0.358-3.740); TOTAL 25(OH) VITAMIN D 35.3 NG/ML (30.0-100.0); URIC ACID 5.5 MG/DL (3.5-7.2)
[2020-01-08 13:03] LABS: HEMOGLOBIN A1c 6.7 %
== END ==
LOC: M SFHCCLAY 11:35
PROVIDERS: ATTEND Physician Assistant
DX: I10 Essential (primary) hypertension (principal); E11.8 Type 2 diabetes mellitus with unspecified complications; Z79.899 Other long term (current) drug therapy

== ENCOUNTER → 2020-03-15 | Outpatient (REF) | payer MEDICARE, OTHER ==
[~2020-03-15] MED LIST changes: +COLC0.6T47 PO; -COLC1TAB13 PO
[2020-03-15 11:36] LABS: BASO % 0.5 % (0.0-1.0); EOS # 0.1 10^3/uL (0.0-0.5); EOS % 1.6 % (0.0-3.0); HEMATOCRIT 43.7 % (42.0-52.0); HEMOGLOBIN 14.1 g/dl (13.5-17.5); LYMPH # 1.7 10^3/uL (1.5-5.0); LYMPH % 22.5 % (24.0-44.0); MEAN CORPUSCULAR HEMOGLOBIN 28.4 pg (27.0-33.0); MEAN CORPUSCULAR HGB CONC 32.3 g/dl (32.0-36.5); MEAN CORPUSCULAR VOLUME 88.1 fl (80.0-96.0); MONO # 0.7 10^3/uL (0.0-0.8); MONO % 8.9 % (0.0-5.0); NEUTROPHILS # 5.1 10^3/uL (1.5-8.5); PLATELET COUNT, AUTOMATED 131 10^3/uL (150-450); RED BLOOD COUNT 4.96 10^6/uL (4.30-6.10); WHITE BLOOD COUNT 7.7 10^3/uL (4.0-10.0)
[2020-03-15 12:04] LABS: HEMOGLOBIN A1c 6.8 %
[2020-03-15 12:35] LABS: MALB URINE SIEMENS 74.6 MG/L; MAU/CREAT RATIO 50.7 MCG/MG (0.0-30.0)
[2020-03-15 12:39] LABS: ALBUMIN 3.9 GM/DL (3.2-5.2); BILIRUBIN,TOTAL 0.5 MG/DL (0.2-1.0); CHOLESTEROL RISK RATIO 3.846 (<5); CREATININE FOR GFR 1.73 MG/DL (0.70-1.30); GLOMERULAR FILTRATION RATE 41.7 (>42); POTASSIUM SERUM 5.4 MEQ/L (3.5-5.1); THYROID STIMULATING HORMONE 1.52 uIU/ML (0.358-3.740); TOTAL PROTEIN 7.2 GM/DL (6.4-8.2)
== END ==
LOC: M SFHCCLAY 08:17
PROVIDERS: ATTEND Physician Assistant
DX: E78.2 Mixed hyperlipidemia (principal); I10 Essential (primary) hypertension; E11.9 Type 2 diabetes mellitus without complications

== ENCOUNTER → 2020-03-18 | Outpatient (CLI) | payer MEDICARE, OTHER ==
--- NOTE | 2020-03-18 15:23 | REP ---
INDICATION: RT KNEE PAIN COMPARISON: None TECHNIQUE: Five views of each knee FINDINGS: Right knee: There is mild tricompartmental narrowing. There is no acute fracture, dislocation, or subluxation. Left knee: There is mild tricompartmental narrowing. There is no acute fracture, dislocation, or subluxation. IMPRESSION: Chronic changes as described above. <Electronically signed by Jacob Agrawal > 03/18/20 [id number]
--- NOTE | 2020-03-18 15:27 | REP ---
INDICATION: RT KNEE PAIN. COMPARISON: None TECHNIQUE: Two views each hip FINDINGS: There is severe bilateral asymmetric hip joint space narrowing with subchondral sclerosis and prominent marginal osteophytosis. There is no acute fracture, dislocation, or subluxation. IMPRESSION: Advanced chronic changes bilaterally. <Electronically signed by Jacob Agrawal > 03/18/20 [id number]
== END ==
LOC: M CLY 11:34
PROVIDERS: ATTEND Physician Assistant
DX: M16.0 Bilateral primary osteoarthritis of hip (principal); M17.0 Bilateral primary osteoarthritis of knee; M25.561 Pain in right knee; M25.562 Pain in left knee; G89.29 Other chronic pain; M25.552 Pain in left hip; M25.551 Pain in right hip
CPT/HCPCS: 73502; 73564; G0463

== ENCOUNTER → 2020-04-01 | Outpatient (CLI) | payer MEDICARE, BC, OTHER ==
--- NOTE | 2020-04-01 10:09 | REP ---
INDICATION: ACUTE KIDNEY FAILURE, CALCULI OF KIDNEY. COMPARISON: Renal ultrasound dated 08/21/2019. TECHNIQUE: Bilateral renal ultrasound. FINDINGS: The right kidney measures 14.8 x 0.3 x 7.0 cm. The left kidney measures 14.0 x 6.5 x 6.8 cm. The kidneys are normal size. Renal cortical echogenicity is normal bilaterally There is no calculus or hydronephrosis on the right or the left. There is no solid or cystic renal mass on the right or the left. Bladder: The bladder is nondistended and cannot be further assessed and we are unable to evaluate for ureteral jets with Doppler ultrasound, however, there is no hydronephrosis. IMPRESSION: Essentially negative bilateral renal ultrasound. <Electronically signed by Jose Nunez > 04/01/20 [id number]
== END ==
LOC: M RAD 09:15
PROVIDERS: ATTEND Nurse Practitioner Family
DX: N17.9 Acute kidney failure, unspecified (principal); N20.0 Calculus of kidney

== ENCOUNTER → 2020-07-15 | Outpatient (REF) | payer MEDICARE, OTHER ==
[~2020-07-15] MED LIST changes: +ASPI-569 PO; -ASPI81TAEC PO
[2020-07-15 18:19] LABS: BASO % 0.5 % (0.0-1.0); EOS # 0.1 10^3/uL (0.0-0.5); HEMATOCRIT 43.4 % (42.0-52.0); HEMOGLOBIN 15.1 g/dl (13.5-17.5); LYMPH # 1.6 10^3/uL (1.5-5.0); LYMPH % 19.4 % (24.0-44.0); MEAN CORPUSCULAR HEMOGLOBIN 29.2 pg (27.0-33.0); MEAN CORPUSCULAR HGB CONC 34.8 g/dl (32.0-36.5); MEAN CORPUSCULAR VOLUME 83.8 fl (80.0-96.0); MONO # 0.9 10^3/uL (0.0-0.8); MONO % 10.4 % (2.0-8.0); NEUTROPHILS # 5.6 10^3/uL (1.5-8.5); NEUTROPHILS % 68.3 % (36.0-66.0); PLATELET COUNT, AUTOMATED 143 10^3/uL (150-450); RED BLOOD COUNT 5.18 10^6/uL (4.30-6.10); WHITE BLOOD COUNT 8.2 10^3/uL (4.0-10.0)
[2020-07-15 18:23] LABS: ALBUMIN 4.1 GM/DL (3.2-5.2); BILIRUBIN,TOTAL 0.8 MG/DL (0.2-1.0); CALCIUM LEVEL 9.2 MG/DL (8.8-10.2); CHOLESTEROL RISK RATIO 3.894 (<5); CREATININE FOR GFR 1.29 MG/DL (0.70-1.30); GLOMERULAR FILTRATION RATE 58.3 (>42); POTASSIUM SERUM 4.2 MEQ/L (3.5-5.1); THYROID STIMULATING HORMONE 1.1 uIU/ML (0.358-3.740); TOTAL PROTEIN 7.2 GM/DL (6.4-8.2)
[2020-07-15 18:44] LABS: HEMOGLOBIN A1c 6.6 %
== END ==
LOC: M SFHCCAPE 08:30
PROVIDERS: ATTEND Physician Assistant
DX: M10.9 Gout, unspecified (principal); E11.9 Type 2 diabetes mellitus without complications; Z12.5 Encounter for screening for malignant neoplasm of prostate
CPT/HCPCS: 36415; 80053; 80061; 83036; 84443; 84550; 85025; G0103

== ENCOUNTER → 2020-07-22 | Outpatient (REF) | payer MEDICARE, OTHER ==
[2020-07-22 17:24] LABS: ALBUMIN 3.8 GM/DL (3.2-5.2); ALT/SGPT 27 U/L (12-78); BILIRUBIN,TOTAL 0.6 MG/DL (0.2-1.0); BLOOD UREA NITROGEN 27 MG/DL (7-18); C REACTIVE PROTEIN QUANTITATIV 0.91 MG/DL (0.00-0.30); CALCIUM LEVEL 9.2 MG/DL (8.8-10.2); CARBON DIOXIDE LEVEL 31 MEQ/L (21-32); CHLORIDE LEVEL 98 MEQ/L (98-107); CPK CREATINE PHOSPHOKINASE 80 U/L (39-308); CREATININE FOR GFR 1.28 MG/DL (0.70-1.30); GLOMERULAR FILTRATION RATE 58.8 (>42); GLUCOSE, FASTING 146 MG/DL (70-100); RHEUMATOID FACTOR QUANT < 10.0 IU/ML (<15.0); SODIUM LEVEL 135 MEQ/L (136-145); TOTAL PROTEIN 6.7 GM/DL (6.4-8.2)
[2020-07-22 17:32] LABS: VITAMIN B12 LEVEL 360 PG/ML
[2020-07-22 17:33] LABS: FOLATE 12.1 NG/ML
[2020-07-26 10:51] LABS: ALBUMIN 3.85 GM/DL (3.29-5.55); ALBUMIN % 57.4 % (55.8-66.1); ALPHA-1-GLOBULIN % 5.4 % (2.9-4.9); ALPHA-1-GLOBULINS 0.36 GM/DL (0.17-0.41); ALPHA-2-GLOBULINS 0.93 GM/DL (0.42-0.99); ALPHA-2-GLOBULINS % 13.9 % (7.1-11.8); BETA-1-GLOBULINS 0.36 GM/DL (0.28-0.60); BETA-1-GLOBULINS % 5.3 % (4.7-7.2); BETA-2-GLOBULINS % 4.5 % (3.2-6.5); GAMMA GLOBULIN % 13.5 % (11.1-18.8)
[2020-07-30 07:16] LABS: ANA (HEP2) Negative (.); CYCLIC CITRULLINATED PEPTIDE 3 units (0-19); Lyme Disease IgG/IgM Antibodie <0.91 ISR (0.00-0.90); Lyme Disease IgM Ab Quantitati <0.80 index (0.00-0.79); VITAMIN B1 LEVEL WHOLE BLOOD 154.6 nmol/L (66.5-200.0)
== END ==
LOC: M SFHCCAPE 07:44
PROVIDERS: ATTEND Physician Assistant
DX: R29.898 Other symptoms and signs involving the musculoskeletal system (principal)

== ENCOUNTER 2020-08-16 10:56 | Emergency (ER) | payer MEDICARE, BC, OTHER ==
[~2020-08-16] VITALS: Ht 180.3 cm; Wt 113.2 kg
[2020-08-16] MEDS ORDERED: MAGN400T35 (11:29)
[2020-08-16] MEDS ORDERED: POTA10CA32 (11:29)
[2020-08-16] MEDS ORDERED: D32000TA PO (11:29)
[2020-08-16 12:44] LABS: BASO % 0.5 % (0.0-1.0); EOS # 0.1 10^3/uL (0.0-0.5); EOS % 1.4 % (0.0-3.0); HEMATOCRIT 44.6 % (42.0-52.0); HEMOGLOBIN 15.3 g/dl (13.5-17.5); LYMPH # 1.4 10^3/uL (1.5-5.0); LYMPH % 16.5 % (24.0-44.0); MEAN CORPUSCULAR HEMOGLOBIN 29.5 pg (27.0-33.0); MEAN CORPUSCULAR HGB CONC 34.3 g/dl (32.0-36.5); MEAN CORPUSCULAR VOLUME 85.9 fl (80.0-96.0); MONO # 0.8 10^3/uL (0.0-0.8); MONO % 9.1 % (2.0-8.0); NEUTROPHILS # 6.2 10^3/uL (1.5-8.5); PLATELET COUNT, AUTOMATED 134 10^3/uL (150-450); RED BLOOD COUNT 5.19 10^6/uL (4.30-6.10); WHITE BLOOD COUNT 8.5 10^3/uL (4.0-10.0)
--- NOTE | 2020-08-16 13:21 | REP ---
INDICATION: constipation x 5days. COMPARISON: KUB of 07/21/2016 TECHNIQUE: Four views FINDINGS: Supine and upright views of the abdomen show the intestinal gas pattern to be nonspecific. A few gas-filled mildly dilated small bowel loops are in the abdomen but in a fashion somewhat similar to that seen on 07/21/2016 there is no evidence of free intraperitoneal air. The accompanying frontal view the chest is essentially unchanged compared to the portable examination of 07/07/2016. There is no free subdiaphragmatic air. Chronic changes are seen involving the imaged spine and hips.. IMPRESSION: Nonspecific intestinal gas pattern. Probable mild small bowel ileus. <Electronically signed by Jacob Agrawal > 08/16/20 [id number]
[2020-08-16 13:32] LABS: ALBUMIN 3.8 GM/DL (3.2-5.2); ALT/SGPT 24 U/L (12-78); BILIRUBIN,DIRECT 0.2 MG/DL (0.0-0.2); BILIRUBIN,TOTAL 0.7 MG/DL (0.2-1.0); BLOOD UREA NITROGEN 15 MG/DL (7-18); CALCIUM LEVEL 10.2 MG/DL (8.8-10.2); CARBON DIOXIDE LEVEL 30 MEQ/L (21-32); CHLORIDE LEVEL 96 MEQ/L (98-107); CK-MB VALUE MASS 4.3 NG/ML (<3.6); CPK CREATINE PHOSPHOKINASE 79 U/L (39-308); CREATININE FOR GFR 1.21 MG/DL (0.70-1.30); GLOMERULAR FILTRATION RATE > 60.0 (>42); GLUCOSE, FASTING 149 MG/DL (70-100); LIPASE 126 U/L (73-393); MB/CK RELATIVE INDEX 5.44 (< OR =4); NT-PRO BNP 170 PG/ML (<125); SODIUM LEVEL 134 MEQ/L (136-145); TOTAL PROTEIN 7.3 GM/DL (6.4-8.2); TROPONIN I < 0.02 NG/ML (< 0.10)
[2020-08-16] MEDS ORDERED: DOCUSATE SODIUM 100MG CAPSULE PO ONE (13:55)
[2020-08-16] MEDS ORDERED: GLYCERIN ADULT SUPP PR ONE (13:55)
[2020-08-16] MEDS ORDERED: MAGNESIUM CITRATE 300 ML BTL PO ONE (13:55)
[2020-08-16] MEDS ORDERED: GASTROGRAFIN SOLUTION 30ML (Q9963) As Ordered ONE (14:26)
[2020-08-16] MEDS: GASTROGRAFIN SOLUTION 30ML PO SCH ×2 (14:41→15:05)
[2020-08-16] MEDS ORDERED: ISOVUE-370 76% 100ML VIAL As Ordered ONE (15:58)
--- NOTE | 2020-08-16 16:59 | REP ---
INDICATION: abd pain, constipation, change in stool, h/o colon CA. COMPARISON: Comparison CT study is from August 01, 2018.. TECHNIQUE: Helical scanning is acquired following the intravenous injection of 100 mL of Isovue 370. Oral contrast was also administered. 3 mm axial images re-formatted. Coronal and sagittal MPR images are provided. FINDINGS: Preliminary digital master naval parachutist radiograph demonstrates unremarkable bowel gas pattern. There is moderate stool in the left colon. The lung bases are clear on axial CT images except for some platelike atelectasis in the right lower lobe. No pleural effusion is seen. There is mild diffuse fatty infiltration of the liver. No focal liver lesion is seen. The spleen is unremarkable. Normal adrenal glands are seen bilaterally. No abnormality is noted in the pancreas. There are gravel-like small gallstones layering in the dependent portion the gallbladder consistent with cholelithiasis. These findings are unchanged. No biliary ductal dilation is observed. Bilateral [id number] renal cortical atrophy is again seen unchanged from the prior study. No hydronephrosis is observed. Urinary bladder is intact. Prostate and seminal vesicles are unremarkable. No pelvic mass or adenopathy is seen. A normal appendix is noted. The patient appears to be status post left colectomy and reanastomosis. Moderate stool in the rectum and descending segment of the colon. No obstructive lesion is seen. Diastasis of the rectus abdominus muscles again seen up unchanged. No bony destructive lesion is observed. 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 Question ankylosing spondylitis. IMPRESSION: Status post left colectomy. Renal cortical atrophy, cholelithiasis, fatty infiltration of the liver and diastasis of the rectus abdominus muscles again seen. Moderate left colonic stool. No acute abdominal or pelvic finding. Question ankylosing spondylitis. <Electronically signed by Enrico Dineor > 08/16/20 [id number]
[2020-08-16] MEDS ORDERED: MIRA3350 PO (17:37)
[2020-08-16] MEDS ORDERED: COLA100C5 PO (17:37)
[2020-08-16 18:19] VITALS: BP 131/73
--- NOTE | 2020-08-16 19:47 | ECGEPIP ---
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
== END 2020-08-16 18:25 | disposition home or self-care (01) ==
LOC: M ED 10:56
DX: I44.0 Atrioventricular block, first degree (principal); K59.00 Constipation, unspecified; K76.0 Fatty (change of) liver, not elsewhere classified; K80.20 Calculus of gallbladder without cholecystitis without obstruction; E11.9 Type 2 diabetes mellitus without complications; I10 Essential (primary) hypertension; N18.9 Chronic kidney disease, unspecified; M62.81 Muscle weakness (generalized); Z87.19 Personal history of other diseases of the digestive system; Z87.442 Personal history of urinary calculi; Z87.448 Personal history of other diseases of urinary system; M48.061 Spinal stenosis, lumbar region without neurogenic claudication; Z85.038 Personal history of other malignant neoplasm of large intestine; Z90.49 Acquired absence of other specified parts of digestive tract; Z92.21 Personal history of antineoplastic chemotherapy; K43.9 Ventral hernia without obstruction or gangrene; G25.0 Essential tremor; G47.33 Obstructive sleep apnea (adult) (pediatric); E66.9 Obesity, unspecified; Z79.82 Long term (current) use of aspirin; Z79.899 Other long term (current) drug therapy; Z88.2 Allergy status to sulfonamides; Z88.5 Allergy status to narcotic agent; Z88.8 Allergy status to other drugs, medicaments and biological substances
CPT/HCPCS: 36415; 74021; 74177; 80048; 80076; 81001; 82550; 82553; 83690; 83880; 84484; 85025; 93005; 99284; Q9967

== ENCOUNTER → 2020-08-18 | Outpatient (CLI) | payer MEDICARE, BC, OTHER ==
[~2020-08-18] MED LIST changes: +D32000TA PO; +MAGN400T35; +MIRA3350 PO; +POTA10CA32
--- NOTE | 2020-08-18 14:41 | REP ---
INDICATION: SHANE LOWER EXTREMITY EDEMA. COMPARISON: Comparison is made with prior study from 20 May 2019.. TECHNIQUE: Bilateral lower extremity duplex venous sonography. FINDINGS: The deep veins are anechoic and fully compressible from the groin to the popliteal fossa in the left and right lower extremity. Color flow imaging is homogeneous. Spectral Doppler interrogation demonstrates intact respiratory variation in flow and normal manual augmentation of flow. There is no evidence of deep vein thrombosis. IMPRESSION: Negative bilateral lower extremity duplex venous ultrasound. No evidence of deep vein thrombosis. <Electronically signed by Enrico Dienro > 08/18/20 [id number]
== END ==
LOC: M RAD 13:19
PROVIDERS: ATTEND Physician Assistant
DX: R60.0 Localized edema (principal)

== ENCOUNTER → 2020-09-02 | Outpatient (CLI) | payer MEDICARE, BC, OTHER ==
--- NOTE | 2020-09-02 11:20 | REP ---
INDICATION: RENAL CALCULUS. COMPARISON: 04/01/2020. TECHNIQUE: Real-time sonographic evaluation of the kidneys is performed. The study is limited due to patient body habitus. FINDINGS: Renal cortical echogenicity pattern is normal bilaterally there is bilateral cortical thinning. There is no evidence of hydronephrosis, cyst, mass, or large calculus in either kidney. The right kidney measures 15.9 x 6.9 x 8.6 cm. Left renal dimensions are 14.4 x 5.5 x 5.7 cm. The urinary bladder is unremarkable. IMPRESSION: No hydronephrosis or large renal calculus. Bilateral cortical thinning. <Electronically signed by Jose Prescott > 09/02/20 [id number]
== END ==
LOC: M RAD 10:21
PROVIDERS: ATTEND Nurse Practitioner Family
DX: N20.0 Calculus of kidney (principal); R93.3 Abnormal findings on diagnostic imaging of other parts of digestive tract

== ENCOUNTER → 2020-09-21 | Outpatient (REF) | payer MEDICARE, OTHER | LOC: M SFHCCAPE 17:06 | PROVIDERS: ATTEND Physician Assistant | DX: L03.116 Cellulitis of left lower limb (principal) ==

== ENCOUNTER → 2020-10-19 | Outpatient (REF) | payer MEDICARE, OTHER ==
[~2020-10-19] MED LIST changes: +ALLO300T2 PO; +DOCU100C16 PO; +FURO20TA2 PO; -MAGN400T35; +MAGN400T35 PO; +POLY17PO10 PO; -POTA10CA32; +POTA10CA32 PO; +TEMO0.0517 TOP; +VITA200020 PO
[2020-10-19 16:51] LABS: ALBUMIN 3.6 GM/DL (3.2-5.2); ALT/SGPT 24 U/L (12-78); BILIRUBIN,TOTAL 0.5 MG/DL (0.2-1.0); BLOOD UREA NITROGEN 22 MG/DL (7-18); CALCIUM LEVEL 8.9 MG/DL (8.8-10.2); CARBON DIOXIDE LEVEL 32 MEQ/L (21-32); CHLORIDE LEVEL 102 MEQ/L (98-107); CHOLESTEROL LEVEL 150 MG/DL (<200); CHOLESTEROL RISK RATIO 4.054 (<5); CREATININE FOR GFR 1.14 MG/DL (0.70-1.30); GLOMERULAR FILTRATION RATE > 60.0 (>42); GLUCOSE, FASTING 129 MG/DL (70-100); HDL CHOLESTEROL 37 MG/DL (>40); LDL CHOLESTEROL 89 MG/DL (<100); NON-HDL-C 113 MG/DL; POTASSIUM SERUM 4.1 MEQ/L (3.5-5.1); SODIUM LEVEL 140 MEQ/L (136-145); TOTAL PROTEIN 6.8 GM/DL (6.4-8.2); TRIGLYCERIDES LEVEL 122 MG/DL (<150); URIC ACID 4.9 MG/DL (3.5-7.2)
[2020-10-19 18:02] LABS: HEMOGLOBIN A1c 6.1 %
== END ==
LOC: M SFHCCAPE 07:38
PROVIDERS: ATTEND Physician Assistant
DX: M10.9 Gout, unspecified (principal); E11.9 Type 2 diabetes mellitus without complications

== ENCOUNTER 2020-10-21 13:57 | Inpatient (IN) | payer MEDICARE, OTHER ==
[~2020-10-21] VITALS: Ht 180.3 cm; Wt 110.3 kg
[~2020-10-21 13:57] MED LIST changes: -ALLO300T2 PO; -DOCU100C16 PO; -FURO20TA2 PO; -POLY17PO10 PO; -TEMO0.0517 TOP; -VITA200020 PO
[2020-10-21] MEDS ORDERED: FURO20TA2 PO (14:12)
[2020-10-21] MEDS ORDERED: GLUCAGON INJ 1MG VIAL SC PRN (14:55)
[2020-10-21] MEDS ORDERED: GLUCOSE 4GM CHEW TABLET PO PRN (14:55)
[2020-10-21] MEDS ORDERED: DEXTROSE 50% 50 ML SYRINGE IV PRN (14:55)
[2020-10-21 15:15] LABS: BASO % 0.4 % (0.0-1.0); EOS # 0.1 10^3/uL (0.0-0.5); EOS % 1.5 % (0.0-3.0); HEMATOCRIT 41.7 % (42.0-52.0); HEMOGLOBIN 13.8 g/dl (13.5-17.5); LYMPH # 1.3 10^3/uL (1.5-5.0); MEAN CORPUSCULAR HEMOGLOBIN 28.9 pg (27.0-33.0); MEAN CORPUSCULAR HGB CONC 33.1 g/dl (32.0-36.5); MEAN CORPUSCULAR VOLUME 87.4 fl (80.0-96.0); MONO # 0.5 10^3/uL (0.0-0.8); MONO % 7.5 % (2.0-8.0); NEUTROPHILS # 4.8 10^3/uL (1.5-8.5); NEUTROPHILS % 71.3 % (36.0-66.0); PLATELET COUNT, AUTOMATED 128 10^3/uL (150-450); RED BLOOD COUNT 4.77 10^6/uL (4.30-6.10); WHITE BLOOD COUNT 6.7 10^3/uL (4.0-10.0)
[2020-10-21] MEDS ORDERED: ALLO300T2 PO (15:24)
[2020-10-21 15:35] LABS: ERYTHROCYTE SEDIMENTATION RATE 20 mm/hr (0-20)
[2020-10-21] MEDS ORDERED: POTA10CA32 PO (15:35)
[2020-10-21] MEDS ORDERED: VITA200020 PO (15:35)
[2020-10-21] MEDS ORDERED: TEMO0.0517 TOP (15:35)
[2020-10-21] MEDS ORDERED: POLY17PO10 PO (15:35)
[2020-10-21] MEDS ORDERED: DOCU100C16 PO (15:35)
[2020-10-21 15:43] LABS: ALBUMIN 3.6 GM/DL (3.2-5.2); ALT/SGPT 23 U/L (12-78); BILIRUBIN,DIRECT 0.1 MG/DL (0.0-0.2); BILIRUBIN,TOTAL 0.5 MG/DL (0.2-1.0); BLOOD UREA NITROGEN 20 MG/DL (7-18); C REACTIVE PROTEIN QUANTITATIV 0.98 MG/DL (0.00-0.30); CALCIUM LEVEL 8.8 MG/DL (8.8-10.2); CARBON DIOXIDE LEVEL 35 MEQ/L (21-32); CHLORIDE LEVEL 102 MEQ/L (98-107); CREATININE FOR GFR 1.17 MG/DL (0.70-1.30); GLOMERULAR FILTRATION RATE > 60.0 (>42); GLUCOSE, FASTING 162 MG/DL (70-100); LIPASE 155 U/L (73-393); POTASSIUM SERUM 3.9 MEQ/L (3.5-5.1); SODIUM LEVEL 139 MEQ/L (136-145); TOTAL PROTEIN 6.6 GM/DL (6.4-8.2)
[2020-10-21] MEDS ORDERED: MIRALAX *UNIT DOSE* 17GM PACKET PO PRN (15:50)
[2020-10-21] MEDS ORDERED: CLOBETASOL PROP 0.05% OINT 30 GM TOP PRN (15:50)
[2020-10-21] MEDS ORDERED: DOCUSATE SODIUM 100MG CAPSULE PO PRN (15:50)
--- NOTE | 2020-10-21 16:02 | HPEPDOC ---
[facility] Medical History & Physical Date of Admission Oct 21, 2020 Date of Service: Oct 21, 2020 Primary Care Physician: FERNY LOYA PA-C Attending Physician: ZAHRA CHANG DO History and Physical CHIEF COMPLAINT: Left leg weakness HISTORY OF PRESENT ILLNESS: Patient is a 70-year-old male who presents today from the neurology office with weakness in the left leg. Patient states that he has had right leg weakness since 2000 and has been worked up for this. Patient has been going to see the neurology office since his left leg, which was his good leg, has become worse over the past few months. Patient states that the leg has become very weak and has been difficult to walk. Patient had been walk with a cane but is now walking with a walker. Patient has been going to see neurology who had a MRI of the C-spine and L-spine performed which showed spinal stenosis. Patient was referred to orthopedic surgery who said that surgery is not indicated because according to the patient if it is not causing him pain then he should leave it alone. Patient then went back to neurology and had an MRI of his brain to see if he had a stroke that could be the cause of the weak ness in the left leg which did not show any acute CVA. Patient then had a thoracic spine MRI without contrast which did show some lesions that were concerning for transverse myelitis. Patient stated that he was told to come in for steroids and and physical therapy for treatment of transverse myelitis. Patient was also told that he would be having a thoracic MRI with contrast in order to better evaluate thoracic spine. Patient states he is otherwise feeling well. Patient has been treated for cellulitis in the recent past for his legs. Patient was started on furosemide which has been helping with the swelling in his legs. Patient states he is otherwise feeling well today. PAST MEDICAL HISTORY: 1. Type 2 diabetes mellitus. 2. Obstructive sleep apnea. 3. Hypertension. 4. Hyperlipidemia 5. Colon cancer 6. Kidney stones 7. Chronic weakness in the right lower extremity dating back to 2000 8. Spinal stenosis in cervical and lumbar spine PAST SURGICAL HISTORY: 1. Hemicolectomy for colon cancer. 2. Benign tumor being removed from neck. 3. Open kidney stone removal SOCIAL HISTORY: Patient lives at home with his . Patient denies smoking very rarely uses alcohol and denies any illicit drug use. Patient is currently retired but used to work with the [employer] FAMILY HISTORY: Patient's father at age 55 from coronary artery disease. Patient's mom of CHF and patient says that she had a lung collapsed for a while. Patient has had a few uncles which have had strokes ALLERGIES: Please see below. REVIEW OF SYSTEMS: General: Patient denies fevers HEENT: Patient denies headaches Cardiovascular: Patient denies chest pain Respiratory: Patient denies shortness of breath, cough GI: Patient denies abdominal pain, nausea, vomiting, diarrhea : Patient denies increased frequency or pain with urination Extremities: Patient reports swelling in his bilateral lower extremities which is better today than it has been in the past. Neurological: Patient reports weakness in the right leg since 2000 with worsening weakness in the left leg as above in HPI Skin: Patient reports recent bouts of cellulitis with a rash that is better on the bilateral lower extremities today. Hematologic: Patient denies any easy bruising. Lymphatic: Patient denies any lumps lumps or bumps in neck, axilla, or groin HOME MEDICATIONS: Please see below. PHYSICAL EXAMINATION: VITAL SIGNS: Temperature 97.9, pulse 74, respiratory rate 18, blood pressure 118/61, pulse oximetry 97% on room air. General: Alert and oriented male patient who was sitting on the edge of the bed with his present in the room when I walked in the room. Patient did not appear to be in any acute distress. HEENT: Normocephalic, atraumatic, moist mucous membranes. Neck: No lymphadenopathy or thyromegaly Cardiac: Regular rate and rhythm, no murmurs, normal S1, normal S2 Pulm: Clear to auscultation bilaterally. No wheezes, rhonchi, rales Abd: Nondistended, nontender to palpation, normal bowel sounds Ext: Trace pitting edema in the bilateral lower extremities around the ankles. Neuro: Patient has 5/5 strength in the upper extremities bilaterally. Patient reports equal sensation to light touch in the upper extremities bilaterally. Patient has 4/5 strength in the right lower extremity with 3/5 strength in the left lower extremity with hip flexion and 4/5 strength in the left lower ex tremity with all other movements. Patient's patellar reflexes were not present. Brachioradialis reflexes bilaterally were 2/4 Skin: Patient has some purple and deep red color of the bilateral lower extremities around the ankles LABORATORY DATA: See below. IMAGING: Patient has reported to have MRI of the brain, C-spine, T-spine, and L- spine prior to his admission. MRI of the brain was reported to show no CVA. MRI of the C-spine and L-spine was reported to show spinal stenosis. Patient's MRI of the T-spine without contrast was reported to show lesions suspicious for transverse myelitis. Patient has MRI of thoracic spine with contrast pending MICROBIOLOGY: Please see below. ASSESSMENT: Patient is a 70-year-old male who presented to the hospital from his neurology clinic with the suspicion of transverse myelitis which was found on a thoracic spine MRI without contrast. . PLAN: 1. Transverse myelitis. Patient will be admitted into the hospital for further work-up and treatment for this. Patient has an MRI of the thoracic spine with contrast ordered which will be done later on today. Patient will be started on 1 g Solu-Medrol for 5 days. I have spoken with Dr. Gan of neurology who sent the patient in and will follow the patient here. Physical therapy, occupational therapy have been ordered. Patient will also be screened for possible acute rehabilitation unit admission. 2. Type 2 diabetes mellitus. With the patient getting IV Solu-Medrol 1 g for 5 days. Patient's blood sugars will most likely become elevated. Patient be placed on the sliding scale with before meals at bedtime coverage and fingersticks. Patient had a most recent A1c on 10/19/2020 which was 6.1. 3. Hypertension. We will continue with the patient's current medications. 4. Obstructive sleep apnea. Patient brought his CPAP with him in order has been placed for him to be able to use it. 5. Hyperlipidemia. We will continue his home medications. 6. Stasis dermatitis. Patient's legs appear to have stasis dermatitis due to the swelling that he had in the past. We will continue with his home Lasix as well as placed teds on the patient. 7. DVT prophylaxis. Lovenox. 8. CODE STATUS: Full code. Disposition. Patient will be admitted to the medical surgical floor. Patient will be treated for transverse myelitis pending the MRI. Neurology will follow in physical therapy and Occupational Therapy will follow the patient. I do expect greater than 2 midnights. Vital Signs Vital Signs Date Time Temp Pulse Resp B/P (MAP) Pulse Ox O2 Delivery O2 Flow Rate FiO2 10/21/20 13:57 97.9 74 18 118/61 (80) 97 Room Air Laboratory Data Labs 24H Laboratory Tests 2 10/21/20 14:55: Immature Granulocyte % (Auto) 0.3, Neutrophils (%) (Auto) 71.3H, Lymphocytes (%) (Auto) 19.0L, Monocytes (%) (Auto) 7.5, Eosinophils (%) (Auto) 1.5, Basophils (%) (Auto) 0.4, Neutrophils # (Auto) 4.8, Lymphocytes # (Auto) 1.3L, Monocytes # (Auto) 0.5, Eosinophils # (Auto) 0.1, Basophils # (Auto) 0.0, Nucleated Red Blood Cells % (auto) 0.0, Erythrocyte Sedimentation Rate 20, Anion Gap 2L, Glomerular Filtration Rate > 60.0, Calcium Level 8.8, Total Bilirubin 0.5, Direct Bilirubin 0.1, Aspartate Amino Transf (AST/SGOT) 20, Alanine Aminotransferase (ALT/SGPT) 23, Alkaline Phosphatase 96, C-Reactive Protein, Quantitative 0.98H, Total Protein 6.6, Albumin 3.6, Albumin/Globulin Ratio 1.2, Lipase 155 CBC/BMP Laboratory Tests 10/21/20 14:55 Home Medications Scheduled Aspirin (Aspirin EC) 81 Mg Tabec, 81 MG PO DAILY Atorvastatin Calcium (Atorvastatin Calcium) 10 Mg Tab, 10 MG PO QHS Cholecalciferol (Vitamin D3) (Vitamin D3) 50 Mcg Capsule, 50 MCG PO DAILY Dulaglutide (Trulicity) 0.75 Mg/0.5 Ml Inj, 0.75 MG SC QWEEK Sunday Furosemide (Furosemide) 20 Mg Tablet, 20 MG PO DAILY Magnesium Oxide (Magnesium Oxide) 400 Mg Tablet, 400 MG PO BID Metoprolol Succinate (Metoprolol Succinate) 50 Mg Tab, 50 MG PO DAILY Potassium Chloride (Potassium Chloride) 10 Meq Capsule.er, 10 MEQ PO DAILY TAKES 2 HOURS AFTER MORNING MEDICATIONS Primidone (Primidone) 50 Mg Tab, 50 MG PO BID Sitagliptin Phosphate (Januvia) 100 Mg Tab, 100 MG PO DAILY Sodium Bicarbonate (Sodium Bicarbonate) 650 Mg Tablet, 650 MG PO BID allopurinoL (allopurinoL) 300 Mg Tablet, 300 MG PO DAILY Scheduled PRN Clobetasol Propionate (Temovate) 15 Gm Oint...g., 1 APLCT TOP BID PRN for PSORIASIS apply to affected area(s) Docusate Sodium (Docusate Sodium) 100 Mg Capsule, 100 MG PO BID PRN for CONSTIPATION Polyethylene Glycol 3350 (Polyethylene Glycol 3350) 17 Gm Powd.pack, 17 GRAM PO DAILY PRN for CONSTIPATION Allergies Coded Allergies: indomethacin (Verified Adverse Reaction, Intermediate, BLOOD IN URINE, 10/21/20) morphine (Verified Adverse Reaction, Intermediate, NIGHT TERRORS, 10/21/20) Sulfa (Sulfonamide Antibiotics) (Verified Adverse Reaction, Mild, NAUSEA, 10/21/20) A-FIB/CHADSVASC A-FIB History Current/History of A-Fib/PAF?: No ZAHRA CHANG DO Oct 21, 2020 16:02
[2020-10-21] MEDS: HumaLOG INSULIN (NovoLOG) PER UNIT SC SCH ×2 (17:30→20:15)
[2020-10-21] MEDS ORDERED: methylPREDNISolone 1,000 MG, VIAL MATE ADAPTER 1 EACH in NS 250 ML IV ONE (18:00)
[2020-10-21] MEDS ORDERED: PROHANCE 279.3MG/ML 15ML VIAL As Ordered ONE (19:08)
[2020-10-21] MEDS ORDERED: PROHANCE 279.3MG/ML 5ML VIAL As Ordered ONE (19:10)
[2020-10-21 20:00] VITALS: BP 141/94
[2020-10-21] MEDS: ATORVASTATIN 10 MG TAB PO SCH (20:14)
[2020-10-21] MEDS: SODIUM BICARBONATE 325 MG TAB PO SCH (20:14)
[2020-10-21] MEDS: MAGNESIUM OXIDE 400MG TAB (MAG-OX) PO SCH (20:15)
--- NOTE | 2020-10-21 20:22 | REPVR ---
PROCEDURE INFORMATION: Exam: MR Thoracic Spine Without and With Contrast Exam date and time: 10/21/2020 2:30 PM Age: 70 years old Clinical indication: Weakness; Patient HX: ? Transverse mylitis TECHNIQUE: Imaging protocol: Multiplanar magnetic resonance images of the thoracic spine without and with contrast. Contrast material: PROHANCE; Contrast volume: 20 ml; Contrast route: INTRAVENOUS (IV); COMPARISON: CR SPINE LS W/BENDING 04/20/2015 4:25 PM FINDINGS: Vertebrae: See "Spinal cord" finding. Spinal cord: Mild myelomalacic changes at the T3-4 and T4 level with cord atrophy. No abnormal cord signal demonstrated on pre or postcontrast imaging. Findings may be the sequelae of prior acute transverse myelitis. Discs/Spinal canal/Neural foramina: Left paracentral disc protrusion at T5-6 effaces the left side of the ventral subarachnoid space with mild left hemicord impingement. The spine demonstrates mild degenerative changes. Soft tissues: Unremarkable. 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 IMPRESSION: 1. Mild myelomalacic changes at the T3-4 and T4 level with cord atrophy. No abnormal cord signal demonstrated on pre or postcontrast imaging. Findings may be the sequelae of prior acute transverse myelitis. 2. 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 3. Left paracentral disc protrusion at T5-6 effaces the left side of the ventral subarachnoid space with mild left hemicord impingement. Electronically signed by: Danilo Mckeon On 10/21/2020 20:21:34 PM
[2020-10-21] MEDS: PRIMIDONE 50 MG TAB PO SCH (20:29)
[2020-10-22 06:00] VITALS: BP 141/90
[2020-10-22 07:49] LABS: HEMATOCRIT 39.3 % (42.0-52.0); LYMPH # 0.4 10^3/uL (1.5-5.0); LYMPH % 8.8 % (24.0-44.0); MEAN CORPUSCULAR HGB CONC 33.1 g/dl (32.0-36.5); MEAN CORPUSCULAR VOLUME 87.5 fl (80.0-96.0); MONO # 0.1 10^3/uL (0.0-0.8); NEUTROPHILS # 4.4 10^3/uL (1.5-8.5); NEUTROPHILS % 89.6 % (36.0-66.0); PLATELET COUNT, AUTOMATED 129 10^3/uL (150-450); RED BLOOD COUNT 4.49 10^6/uL (4.30-6.10); WHITE BLOOD COUNT 4.9 10^3/uL (4.0-10.0)
[2020-10-22] MEDS: allopurinoL 300 MG TAB PO SCH (08:10)
[2020-10-22] MEDS: MAGNESIUM OXIDE 400MG TAB (MAG-OX) PO SCH ×2 (08:10→21:24)
[2020-10-22] MEDS: SODIUM BICARBONATE 325 MG TAB PO SCH ×2 (08:10→21:24)
[2020-10-22] MEDS: PRIMIDONE 50 MG TAB PO SCH ×2 (08:10→21:24)
[2020-10-22] MEDS: FUROSEMIDE 20 MG TAB PO SCH (08:10)
[2020-10-22] MEDS: ASPIRIN 81MG ENTERIC TABLET PO SCH (08:10)
[2020-10-22] MEDS: ENOXAPARIN 40MG/0.4ML SYRINGE (J1650 PER 10MG) SC SCH (08:11)
[2020-10-22] MEDS: POTASSIUM CHLORIDE 10 MEQ SR TABLET PO SCH (08:11)
[2020-10-22] MEDS: METOPROLOL SUCC (TopROL XL) 50MG **XL** TAB PO SCH (08:12)
[2020-10-22] MEDS: HumaLOG INSULIN (NovoLOG) PER UNIT SC SCH ×4 (08:20→21:25)
[2020-10-22 08:21] LABS: BLOOD UREA NITROGEN 21 MG/DL (7-18); CALCIUM LEVEL 8.7 MG/DL (8.8-10.2); CARBON DIOXIDE LEVEL 30 MEQ/L (21-32); CHLORIDE LEVEL 105 MEQ/L (98-107); CREATININE FOR GFR 1.15 MG/DL (0.70-1.30); GLOMERULAR FILTRATION RATE > 60.0 (>42); GLUCOSE, FASTING 220 MG/DL (70-100); MAGNESIUM LEVEL 1.6 MG/DL (1.8-2.4); POTASSIUM SERUM 3.9 MEQ/L (3.5-5.1); SODIUM LEVEL 142 MEQ/L (136-145); THYROID STIMULATING HORMONE 0.372 uIU/ML (0.358-3.740)
[2020-10-22] MEDS ORDERED: POTASSIUM CHLORIDE 10 MEQ SR TABLET PO SCH ×2 (09:00)
[2020-10-22] MEDS: methylPREDNISolone 1,000 MG, VIAL MATE ADAPTER 1 EACH in NS 250 ML IV SCH (11:37)
[2020-10-22] MEDS: MIRALAX *UNIT DOSE* 17GM PACKET PO SCH (11:37)
--- NOTE | 2020-10-22 12:04 | IPNPDOC ---
Text Note Date of Service The patient was seen on 10/22/20. NOTE Subjective: Patient is a 70-year-old male who presented from his neurology off ice yesterday with weakness in his left leg with concern for transverse myelitis. Patient is feeling about the same today. Patient did not have any acute events overnight. Patient states he may be moving his leg a little bit better. Patient does state he has a lot more energy than he did yesterday as he was started on 1 g of Solu-Medrol yesterday. Patient denies any other complaints today. Review of systems: General: Patient denies fevers HEENT: Patient denies headaches Cardiovascular: Patient denies chest pain Respiratory: Patient denies shortness of breath, cough GI: Patient denies abdominal pain, nausea, vomiting, diarrhea : Patient denies increased frequency or pain with urination Extremities: Patient denies swelling or pain in extremities Neurological: Patient denies numbness or tingling in legs Physical exam: Vitals: See below General: Alert and oriented male patient who is laying in bed when I walked in the room. Patient did not appear to be in any acute distress. HEENT: Normocephalic, atraumatic, moist mucous membranes. Neck: No lymphadenopathy or thyromegaly Cardiac: Regular rate and rhythm, no murmurs, normal S1, normal S2 Pulm: Clear to auscultation bilaterally. No wheezes, rhonchi, rales Abd: Nondistended, nontender to palpation, normal bowel sounds Ext: Trace pitting edema in the bilateral lower extremities up around the ankles. Neuro: Patient is 5/5 strength in upper extremities bilaterally. Patient reports equal sensation to light touch in upper extremities bilaterally. Patient has 4/5 strength in both upper and lower extremities bilaterally today which is an improvement from yesterday. Labs: See below Imaging: MRI of the thoracic spine without and with contrast performed on 10/21/2020 was reported to show mild mild low malic changes to T3-T4 and T4 level with cord atrophy. No abnormal cord signal demonstrated on pre or postcontrast imaging. Findings may be the sequela of prior acute transverse myelitis. 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 Left paracentral disc protrusion at T5-6 the left side of the ventral subarachnoid space with mild left hemicord impingement. Assessment/plan: Patient is a 70-year-old male who presents to the hospital from his neurology clinic for further work-up of suspicion of transverse myelitis which was found on thoracic spine MRI without contrast. 1. Weakness. The patient's weakness has been chronic for quite some time however, there was concern for transverse myelitis. MRI showed possible sequela of transverse myelitis which is not acute. I will contact the patient's n eurologist Dr. Gan about the neck steps in the plan. Patient was started on Solu-Medrol 1 g for 5 days. Today is day 2 of that. Patient will work with physical therapy and Occupational Therapy. Patient's MRI shows a disc protrusion that is mildly impinging on the left hemicord. We will continue to monitor the patient's. 2. Type 2 diabetes mellitus. With the patient getting IV Solu-Medrol 1 g for 5 days. Patient's blood sugars were most likely, elevated. We will continue with sliding scale coverage. 3. Hypertension. We will continue with the patient's current medications. 4. Obstructive sleep apnea. Continue home CPAP 5. Hyperlipidemia. Continue home medications. 6. Stasis dermatitis. Patient's legs appear to have stasis dermatitis due to swelling in the past. This has improved and patient will continue to keep his legs elevated DVT Prophylaxis: Lovenox Disposition: Pending working with physical therapy and Occupational Therapy. VS,Emily, I+O VSEmily, I+O Laboratory Tests 10/21/20 14:55 10/22/20 07:05 Vital Signs Date Time Temp Pulse Resp B/P (MAP) Pulse Ox O2 Delivery O2 Flow Rate FiO2 10/22/20 08:12 88 146/90 10/22/20 06:00 97.3 18 96 Room Air I&O- Last 24 Hours up to 6 AM 10/22/20 06:00 Intake Total 866 ml Output Total 750 ml Balance 116 ml ZAHRA CHANG DO Oct 22, 2020 12:04
[2020-10-22 14:00] VITALS: BP 142/70
[2020-10-22] MEDS: ATORVASTATIN 10 MG TAB PO SCH (21:24)
[2020-10-22 22:00] VITALS: BP 145/81
[2020-10-23 06:00] VITALS: BP 134/68
[2020-10-23 06:41] LABS: HEMATOCRIT 38.8 % (42.0-52.0); HEMOGLOBIN 12.9 g/dl (13.5-17.5); LYMPH # 0.6 10^3/uL (1.5-5.0); MEAN CORPUSCULAR HEMOGLOBIN 29.1 pg (27.0-33.0); MEAN CORPUSCULAR HGB CONC 33.2 g/dl (32.0-36.5); MEAN CORPUSCULAR VOLUME 87.6 fl (80.0-96.0); MONO # 0.5 10^3/uL (0.0-0.8); MONO % 4.9 % (2.0-8.0); NEUTROPHILS # 9.3 10^3/uL (1.5-8.5); NEUTROPHILS % 88.7 % (36.0-66.0); PLATELET COUNT, AUTOMATED 124 10^3/uL (150-450); RED BLOOD COUNT 4.43 10^6/uL (4.30-6.10); WHITE BLOOD COUNT 10.5 10^3/uL (4.0-10.0)
[2020-10-23 07:02] LABS: BLOOD UREA NITROGEN 26 MG/DL (7-18); CALCIUM LEVEL 8.4 MG/DL (8.8-10.2); CARBON DIOXIDE LEVEL 30 MEQ/L (21-32); CHLORIDE LEVEL 103 MEQ/L (98-107); GLOMERULAR FILTRATION RATE > 60.0 (>42); GLUCOSE, FASTING 236 MG/DL (70-100); MAGNESIUM LEVEL 1.7 MG/DL (1.8-2.4); POTASSIUM SERUM 3.7 MEQ/L (3.5-5.1); SODIUM LEVEL 138 MEQ/L (136-145)
[2020-10-23] MEDS: SODIUM BICARBONATE 325 MG TAB PO SCH ×2 (08:18→21:56)
[2020-10-23] MEDS: ASPIRIN 81MG ENTERIC TABLET PO SCH (08:18)
[2020-10-23] MEDS: MAGNESIUM OXIDE 400MG TAB (MAG-OX) PO SCH ×2 (08:19→21:56)
[2020-10-23] MEDS: POTASSIUM CHLORIDE 10 MEQ SR TABLET PO SCH (08:19)
[2020-10-23] MEDS: MIRALAX *UNIT DOSE* 17GM PACKET PO SCH (08:20)
[2020-10-23] MEDS: PRIMIDONE 50 MG TAB PO SCH ×2 (08:20→21:57)
[2020-10-23] MEDS: FUROSEMIDE 20 MG TAB PO SCH (08:20)
[2020-10-23] MEDS: HumaLOG INSULIN (NovoLOG) PER UNIT SC SCH ×4 (08:21→21:58)
[2020-10-23] MEDS: METOPROLOL SUCC (TopROL XL) 50MG **XL** TAB PO SCH (08:22)
[2020-10-23] MEDS: methylPREDNISolone 1,000 MG, VIAL MATE ADAPTER 1 EACH in NS 250 ML IV SCH (08:23)
[2020-10-23] MEDS: ENOXAPARIN 40MG/0.4ML SYRINGE (J1650 PER 10MG) SC SCH (08:23)
[2020-10-23] MEDS: allopurinoL 300 MG TAB PO SCH (08:23)
[2020-10-23] MEDS: VITAMIN D 1,000 INTERNATIONAL UNITS TABLET PO SCH (09:12)
--- NOTE | 2020-10-23 11:10 | CR ---
CONSULTATION DATE: 10/22/2020 REFERRING PHYSICIAN: Dr. Miguel De La Vega REASON FOR CONSULTATION: Difficulty walking and leg weakness. HISTORY OF PRESENT ILLNESS: Hernan Piper is a 70-year-old man who has history of cervical and lumbosacral spinal stenosis and was at his baseline state of health until March,. The patient has chronic right leg weakness. His left leg got weaker in March,. He initially thought that it was his severe hip arthritis which was causing his problems. He went to see orthopedics who did not think that his hip issues were causing weakness of his legs. He was referred to our office for further workup. MRI of cervical and lumbosacral spine were performed which severe cervical spinal stenosis and moderately severe lumbosacral spinal stenosis. We referred him back to Dr. Rodriguez who did not think that cervical stenosis in the absence of myelomalacia would be causing his left weakness. He referred him to [facility] for further management of his neck and lower back. I again saw him and ordered MRI scan of brain and thoracic spine for further workup. MRI of brain showed small vessel ischemic disease of brain. MRI scan of thoracic spine showed a T2 lesion at T3-4 of thoracic spine cord concerning for transverse myelitis. I called and talked to him and his and offered inpatient Solu-Medrol with physical therapy rehabilitation versus outpatient Solu-Medrol daily and outpatient physical therapy. It was too difficult for them to come daily for infusion we admitted him at [facility] and he is also diabetic and his blood sugar will need close monitoring while he is on Solu-Medrol. He has been started on Solu-Medrol and insulin for these health issues. MRI scan of thoracic spine with and without contrast showed similar findings without contrast enhancement. The patient denies any headaches, dysphagia, dysarthria, shortness of breath, urinary incontinence, diplopia. He has history of chronic leg and back pain and with worsening walking and he has been using a walker over the last few months. He was physically very active prior to all of this and was very active in [employer]. PAST MEDICAL HISTORY: 1. Type 2 diabetes. 2. Obstructive sleep apnea. 3. Hypertension. 4. Dyslipidemia. 5. Colon cancer. 6. Kidney stones. 7. Cervical and lumbosacral spinal stenosis. 8. Chronic neck and back pain. 9. Hemicolectomy for colon cancer. 10. Benign tumor removed from neck. 11. Kidney stone removal. SOCIAL HISTORY: He lives with his . He denies smoking, alcohol or illicit drugs. FAMILY HISTORY: Father with history of coronary artery disease. Mother with history of congestive heart failure. REVIEW OF SYSTEMS: All systems are reviewed and found to be noncontributory except as mentioned in history of present illness. ALLERGIES: INDOMETHACIN, MORPINE, SULFA. HOME MEDICATIONS: 1. Aspirin 81 mg p.o. daily. 2. Lipitor 10 mg p.o. daily. 3. Vitamin D3 50 mcg p.o. daily. 4. Trulicity 0.75 mg subcutaneous once a week. 5. Lasix 20 mg p.o. daily. 6. Magnesium oxide 400 mg p.o. b.i.d. 7. Metoprolol extended release 50 mg p.o. daily. 8. Potassium chloride 10 mEq p.o. daily. 9. Primidone 50 mg p.o. b.i.d. 10. Januvia 100 mg p.o. daily. 11. Sodium bicarbonate 650 mg p.o. b.i.d. 12. Allopurinol 300 mg p.o. daily. PHYSICAL EXAMINATION: VITAL SIGNS: Temperature 97.9, pulse 74, respiratory rate 18, blood pressure 118/61, 97% saturation on room air. HEART: Regular rate and rhythm. LUNGS: Clear to auscultation. ABDOMEN: Soft, nontender, nondistended. EXTREMITIES: No pedal edema. MUSCULOSKELETAL: No abnormalities. SKIN: No rash. NEUROLOGICAL: No signs of meningeal irritation. The patient is awake, alert, oriented to place, person and time. Normal speech, comprehension and repetition. Extraocular muscles are intact. No facial weakness. Tongue and uvula are midline. 5/5 strength in both arms. Strength in his left leg is 4-/5 in iliopsoas. Right leg strength in iliopsoas is 5-/5. The rest of the strength in both legs is 5-/5. Deep tendon reflexes are 1+ in arms and absent in legs. He has decreased cold, pin prick vibration, sensation in his feet. His gait is unsteady. He is using a walker. ASSESSMENT: 1. Thoracic transverse myelitis. 2. Severe cervical stenosis and moderately severe lumbosacral spinal stenosis. 3. Multifactorial gait difficulty. 4. Diabetic peripheral neuropathy. 5. Benign essential tremor, well controlled with Primidone. PLAN: 1. Solu-Medrol 1000 mg IV daily for five days. 2. Physical and occupational therapy and consider inpatient rehabilitation. 3. The patient is scheduled to see [facility] for a second opinion about his cervical and lumbosacral spine. He was seen by Dr. Rodriguez who thought that he may need spine surgery but will be to prevent future problems. 4. Continue Primidone 50 mg p.o. b.i.d. 5. Close monitoring of his blood sugar with Solu-Medrol as he is already diabetic and needs insulin to control his blood sugar while he is on steroids. 6. Follow with our office in 1-2 months. He already has a scheduled appointment with our office.
[2020-10-23 13:53] VITALS: BP 162/74
[2020-10-23 14:00] VITALS: BP 162/74
--- NOTE | 2020-10-23 14:24 | IPNPDOC ---
Text Note Date of Service The patient was seen on 10/23/20. NOTE Subjective: Patient is a 70-year-old male presented from neurology office 2 days ago with weakness in his left leg with concern for transverse myelitis. Patient states he is feeling a little bit better today. He did not have any acute events overnight. Patient is otherwise feeling well. Review of systems: General: Patient denies fevers HEENT: Patient denies headaches Cardiovascular: Patient denies chest pain Respiratory: Patient denies shortness of breath, cough GI: Patient denies abdominal pain, nausea, vomiting, diarrhea : Patient denies increased frequency or pain with urination Extremities: Patient denies swelling or pain in extremities Neurological: Patient reports weakness in his leg but this is improving. Physical exam: Vitals: See below General: Alert and oriented male patient who was sitting in the chair when I walked into the room. Patient did not appear to be in any acute distress. HEENT: Normocephalic, atraumatic, moist mucous membranes. Neck: No lymphadenopathy or thyromegaly Cardiac: Regular rate and rhythm, no murmurs, normal S1, normal S2 Pulm: Clear to auscultation bilaterally. No wheezes, rhonchi, rales Abd: Nondistended, nontender to palpation, normal bowel sounds Ext: Trace pitting edema bilateral lower extremities around the ankles. Neuro: Patient has 5/5 strength in upper extremities bilaterally. Patient reports equal sensation to light touch in upper and lower extremities bilaterally. Patient has 4/5 strength in hip flexion in the left leg and 5/5 strength in right and other areas of the left leg. Labs: See below Imaging: No new imaging has been performed. Assessment/plan: Patient is a 70-year-old male who presents to the hospital from his neurology clinic for further work-up of suspicion for transverse myelitis which was found on thoracic spine MRI without contrast. 1. Weakness. Patient has had chronic weakness however, it is worsened on the left leg over the past few months. Patient's neurologist Dr. Gan was concerned for transverse myelitis. Patient is on day 3 of Solu-Medrol. This will be a 5-day course of 1 g/day. Patient will continue work with physical and Occupational Therapy. There is a disc protrusion that is mildly impinging on the left hemicord. We will continue to monitor the patient. 2. Type 2 diabetes mellitus. Patient's blood sugars have become elevated which is most likely secondary to IV Solu-Medrol. We will continue with sliding scale coverage. 3. Hypertension. Continue home medications. 4. Obstructive sleep apnea. Continue home CPAP. 5. Hyperlipidemia. Continue home medications. 6. Stasis dermatitis. Patient's legs appear improved today. We will continue to keep his legs elevated when he is not moving around. DVT Prophylaxis: Lovenox Disposition: Pending work with physical and Occupational Therapy. Possible ARU placement on Sunday. VS,Fishbone, I+O VS, Fishbone, I+O Laboratory Tests 10/23/20 06:08 Vital Signs Date Time Temp Pulse Resp B/P (MAP) Pulse Ox O2 Delivery O2 Flow Rate FiO2 10/23/20 13:53 162/74 (103) 10/23/20 08:22 84 10/23/20 06:00 97.0 18 97 Room Air I&O- Last 24 Hours up to 6 AM 10/23/20 06:00 Intake Total 2200 ml Output Total 1210 ml Balance 990 ml ZAHRA CHANG DO Oct 23, 2020 14:24
[2020-10-23] MEDS: ATORVASTATIN 10 MG TAB PO SCH (21:57)
[2020-10-23] MEDS: LEVEMIR (INSULIN DETEMIR) 1 UNITS/0.01ML SC SCH (21:57)
[2020-10-23 22:00] VITALS: BP 165/79
[2020-10-24 06:00] VITALS: BP 147/74
[2020-10-24 06:11] LABS: BASO % 0.1 % (0.0-1.0); HEMATOCRIT 38.5 % (42.0-52.0); HEMOGLOBIN 12.8 g/dl (13.5-17.5); LYMPH # 0.7 10^3/uL (1.5-5.0); LYMPH % 7.3 % (24.0-44.0); MEAN CORPUSCULAR HEMOGLOBIN 29.2 pg (27.0-33.0); MEAN CORPUSCULAR HGB CONC 33.2 g/dl (32.0-36.5); MEAN CORPUSCULAR VOLUME 87.7 fl (80.0-96.0); MONO # 0.5 10^3/uL (0.0-0.8); MONO % 5.8 % (2.0-8.0); NEUTROPHILS # 8.1 10^3/uL (1.5-8.5); NEUTROPHILS % 86.2 % (36.0-66.0); PLATELET COUNT, AUTOMATED 117 10^3/uL (150-450); RED BLOOD COUNT 4.39 10^6/uL (4.30-6.10); WHITE BLOOD COUNT 9.3 10^3/uL (4.0-10.0)
[2020-10-24 06:37] LABS: BLOOD UREA NITROGEN 31 MG/DL (7-18); CALCIUM LEVEL 7.8 MG/DL (8.8-10.2); CARBON DIOXIDE LEVEL 31 MEQ/L (21-32); CHLORIDE LEVEL 103 MEQ/L (98-107); CREATININE FOR GFR 1.01 MG/DL (0.70-1.30); GLOMERULAR FILTRATION RATE > 60.0 (>42); GLUCOSE, FASTING 211 MG/DL (70-100); MAGNESIUM LEVEL 1.7 MG/DL (1.8-2.4); POTASSIUM SERUM 3.6 MEQ/L (3.5-5.1); SODIUM LEVEL 140 MEQ/L (136-145)
[2020-10-24] MEDS: HumaLOG INSULIN (NovoLOG) PER UNIT SC SCH ×4 (08:19→21:37)
[2020-10-24] MEDS: methylPREDNISolone 1,000 MG, VIAL MATE ADAPTER 1 EACH in NS 250 ML IV SCH (08:19)
[2020-10-24] MEDS: METOPROLOL SUCC (TopROL XL) 50MG **XL** TAB PO SCH (08:20)
[2020-10-24] MEDS: ENOXAPARIN 40MG/0.4ML SYRINGE (J1650 PER 10MG) SC SCH (08:20)
[2020-10-24] MEDS: SODIUM BICARBONATE 325 MG TAB PO SCH ×2 (08:20→21:36)
[2020-10-24] MEDS: POTASSIUM CHLORIDE 10 MEQ SR TABLET PO SCH (08:20)
[2020-10-24] MEDS: ASPIRIN 81MG ENTERIC TABLET PO SCH (08:20)
[2020-10-24] MEDS: allopurinoL 300 MG TAB PO SCH (08:21)
[2020-10-24] MEDS: FUROSEMIDE 20 MG TAB PO SCH (08:21)
[2020-10-24] MEDS: PRIMIDONE 50 MG TAB PO SCH ×2 (08:21→21:36)
[2020-10-24] MEDS: VITAMIN D 1,000 INTERNATIONAL UNITS TABLET PO SCH (08:21)
[2020-10-24] MEDS: MAGNESIUM OXIDE 400MG TAB (MAG-OX) PO SCH ×2 (08:21→21:36)
[2020-10-24] MEDS: MIRALAX *UNIT DOSE* 17GM PACKET PO SCH (08:28)
--- NOTE | 2020-10-24 12:07 | IPNPDOC ---
Text Note Date of Service The patient was seen on 10/24/20. NOTE Subjective: Patient is a 68-year-old male presents from neurology office on for weakness with concern for transaminitis. Patient is doing a little bit better today. No acute events overnight. Patient did have some elevated blood sugars which did require some Levemir to be added to his regimen. Patient is otherwise feeling well. Review of systems: General: Patient denies fevers HEENT: Patient denies headaches Cardiovascular: Patient denies chest pain Respiratory: Patient denies shortness of breath, cough GI: Patient denies abdominal pain, nausea, vomiting, diarrhea : Patient denies increased frequency or pain with urination Extremities: Patient denies swelling or pain in extremities Neurological: Patient reports weakness in his legs but this is improving. Physical exam: Vitals: See below General: Alert and oriented male patient who was sitting in the chair when I walked in the room. Patient did not appear to be in any acute distress. HEENT: Normocephalic, atraumatic, moist mucous membranes. Neck: No lymphadenopathy or thyromegaly Cardiac: Regular rate and rhythm, no murmurs, normal S1, normal S2 Pulm: Clear to auscultation bilaterally. No wheezes, rhonchi, rales Abd: Nondistended, nontender to palpation, normal bowel sounds Ext: Trace pitting edema around the ankles Neuro: Patient has 5/5 strength in the upper extremities bilaterally. Patient reports equal sensation light touch in upper and lower extremities bilaterally. Patient is 4/5 strength in hip flexion in the left leg but 5/5 strength in other areas of the left leg. Patient has 5/5 strength in right lower extremity. Labs: See below Imaging: No new imaging has been performed Assessment/plan: 70-year-old male presents to the hospital from neurology clinic for further w ork-up for suspicion of transverse myelitis found on thoracic spine MRI. 1. Weakness. Concern for transverse myelitis. Patient is on day 4/5 of Solu- Medrol 1 g. We will continue to monitor the patient. There is also a disc protrusion that is mildly impinging on the left hemicord but this does not appear to be causing the patient's symptoms. 2. Type 2 diabetes mellitus. Patient's blood sugars have become elevated most likely secondary to IV Solu-Medrol. Patient is on sliding scale coverage and Levemir was added for overnight coverage as well. We will continue to monitor. Levemir will be discontinued once Solu-Medrol is discontinued and the patient sugars are back down to where they normally are. 3. Hypertension. Continue home medications. 4. Obstructive sleep apnea. Continue home CPAP. 5. Hyperlipidemia. Continue home medications. 6. Stasis dermatitis. Patient's legs appear improved today. We will continue to keep the legs elevated while he is not moving around. DVT Prophylaxis: Lovenox Disposition: Pending working with physical therapy and Occupational Therapy. Possible ARU placement. VS,Fishbone, I+O VS, Fishbone, I+O Laboratory Tests 10/24/20 05:48 Vital Signs Date Time Temp Pulse Resp B/P (MAP) Pulse Ox O2 Delivery O2 Flow Rate FiO2 10/24/20 08:20 66 147/74 10/24/20 06:00 97.1 19 98 Room Air I&O- Last 24 Hours up to 6 AM 10/24/20 06:00 Intake Total 1050 ml Output Total 2345 ml Balance -1295 ml ZAHRA CHANG DO Oct 24, 2020 12:07
[2020-10-24 14:00] VITALS: BP 133/65
[2020-10-24] MEDS: LEVEMIR (INSULIN DETEMIR) 1 UNITS/0.01ML SC SCH (21:36)
[2020-10-24] MEDS: ATORVASTATIN 10 MG TAB PO SCH (21:36)
[2020-10-24 22:00] VITALS: BP 140/76
[2020-10-25 06:00] VITALS: BP 155/77
[2020-10-25 06:19] LABS: HEMATOCRIT 42.5 % (42.0-52.0); LYMPH # 0.8 10^3/uL (1.5-5.0); MEAN CORPUSCULAR HEMOGLOBIN 28.9 pg (27.0-33.0); MEAN CORPUSCULAR HGB CONC 32.9 g/dl (32.0-36.5); MEAN CORPUSCULAR VOLUME 87.8 fl (80.0-96.0); MONO # 0.6 10^3/uL (0.0-0.8); MONO % 6.5 % (2.0-8.0); NEUTROPHILS # 7.6 10^3/uL (1.5-8.5); NEUTROPHILS % 83.7 % (36.0-66.0); PLATELET COUNT, AUTOMATED 136 10^3/uL (150-450); RED BLOOD COUNT 4.84 10^6/uL (4.30-6.10); WHITE BLOOD COUNT 9.1 10^3/uL (4.0-10.0)
[2020-10-25 06:46] LABS: BLOOD UREA NITROGEN 31 MG/DL (7-18); CALCIUM LEVEL 8.4 MG/DL (8.8-10.2); CARBON DIOXIDE LEVEL 30 MEQ/L (21-32); CHLORIDE LEVEL 105 MEQ/L (98-107); CREATININE FOR GFR 1.04 MG/DL (0.70-1.30); GLOMERULAR FILTRATION RATE > 60.0 (>42); GLUCOSE, FASTING 216 MG/DL (70-100); POTASSIUM SERUM 3.8 MEQ/L (3.5-5.1); SODIUM LEVEL 142 MEQ/L (136-145)
[2020-10-25] MEDS: FUROSEMIDE 20 MG TAB PO SCH (08:27)
[2020-10-25] MEDS: MAGNESIUM OXIDE 400MG TAB (MAG-OX) PO SCH ×2 (08:27→20:52)
[2020-10-25] MEDS: ASPIRIN 81MG ENTERIC TABLET PO SCH (08:27)
[2020-10-25] MEDS: VITAMIN D 1,000 INTERNATIONAL UNITS TABLET PO SCH (08:27)
[2020-10-25] MEDS: POTASSIUM CHLORIDE 10 MEQ SR TABLET PO SCH (08:27)
[2020-10-25] MEDS: SODIUM BICARBONATE 325 MG TAB PO SCH ×2 (08:27→20:52)
[2020-10-25] MEDS: allopurinoL 300 MG TAB PO SCH (08:27)
[2020-10-25] MEDS: HumaLOG INSULIN (NovoLOG) PER UNIT SC SCH ×4 (08:27→20:54)
[2020-10-25] MEDS: METOPROLOL SUCC (TopROL XL) 50MG **XL** TAB PO SCH (08:28)
[2020-10-25] MEDS: MIRALAX *UNIT DOSE* 17GM PACKET PO SCH (08:28)
[2020-10-25] MEDS: methylPREDNISolone 1,000 MG, VIAL MATE ADAPTER 1 EACH in NS 250 ML IV SCH (08:28)
[2020-10-25] MEDS: ENOXAPARIN 40MG/0.4ML SYRINGE (J1650 PER 10MG) SC SCH (08:29)
[2020-10-25] MEDS: PRIMIDONE 50 MG TAB PO SCH ×2 (08:30→20:52)
--- NOTE | 2020-10-25 12:17 | IPNPDOC ---
Text Note Date of Service The patient was seen on 10/25/20. NOTE Subjective: Patient is a 70-year-old male presented from his neurology office on 10/21/2020 for weakness with concern for transverse myelitis. Patient is doing better today. Patient no acute events overnight. Patient has had elevated blood sugars and has required Levemir. Patient says he is feeling slightly stronger and has been able to work with physical therapy. Review of systems: General: Patient denies fevers HEENT: Patient denies headaches Cardiovascular: Patient denies chest pain Respiratory: Patient denies shortness of breath, cough GI: Patient denies abdominal pain, nausea, vomiting, diarrhea : Patient denies increased frequency or pain with urination Extremities: Patient denies swelling or pain in extremities Neurological: Patient reports improving weakness in his legs Physical exam: Vitals: See below General: Alert and oriented male patient who was sitting in the chair when I walked into the room. Patient did not appear to be in any acute distress. HEENT: Normocephalic, atraumatic, moist mucous membranes. Neck: No lymphadenopathy or thyromegaly Cardiac: Regular rate and rhythm, no murmurs, normal S1, normal S2 Pulm: Clear to auscultation bilaterally. No wheezes, rhonchi, rales Abd: Nondistended, nontender to palpation, normal bowel sounds Ext: Trace pitting edema on the ankles bilaterally. Neuro: 5/5 strength in upper extremities bilaterally. 4/5 strength in left hip flexion. 5/5 strength in left knee extension and flexion and ankle dorsi and plantar flexion. Patient has right 5/5 strength in right lower extremity. Equal sensation is reported to light touch in upper and lower extremities bilaterally. Labs: See below Imaging: No new imaging has been performed. Assessment/plan: 70-year-old male presents to the hospital from neurology clinic for further work-up for suspicion of transverse myelitis found on thoracic spine MRI. 1. Weakness concern for transverse myelitis. This was the final day of Solu- Medrol. We will continue monitor the patient. Physical therapy says the patient will be good to go home with home physical therapy. Prescription will be given to the patient for home PT. 2. Type 2 diabetes mellitus. Patient blood sugars have been elevated most likely secondary to Solu-Medrol. We will monitor the patient for 1 more night with most likely discharge tomorrow. 3. Hypertension. Continue home medications. 4. Obstructive sleep apnea. Continue home CPAP. 5. Hyperlipidemia. Continue home medications. 6. Stasis dermatitis. Patient's legs improved today. Continue to keep legs elevated when not moving around. DVT Prophylaxis: Lovenox Disposition: Most likely discharge in 24 hours with home physical therapy. VS,Fishbone, I+O VS, Fishbone, I+O Laboratory Tests 10/25/20 06:03 Vital Signs Date Time Temp Pulse Resp B/P (MAP) Pulse Ox O2 Delivery O2 Flow Rate FiO2 10/25/20 08:28 64 155/77 10/25/20 06:00 97.6 18 98 Room Air I&O- Last 24 Hours up to 6 AM 10/25/20 06:00 Intake Total 1920 ml Output Total 3250 ml Balance -1330 ml ZAHRA CHANG DO Oct 25, 2020 12:17
[2020-10-25 14:00] VITALS: BP 121/74
[2020-10-25] MEDS: ATORVASTATIN 10 MG TAB PO SCH (20:52)
[2020-10-25] MEDS: LEVEMIR (INSULIN DETEMIR) 1 UNITS/0.01ML SC SCH (20:54)
[2020-10-25 22:00] VITALS: BP 148/88
[2020-10-26 06:00] VITALS: BP 145/73
[2020-10-26 07:19] LABS: HEMATOCRIT 41.5 % (42.0-52.0); HEMOGLOBIN 13.8 g/dl (13.5-17.5); LYMPH # 0.8 10^3/uL (1.5-5.0); LYMPH % 10.4 % (24.0-44.0); MEAN CORPUSCULAR HEMOGLOBIN 28.9 pg (27.0-33.0); MEAN CORPUSCULAR HGB CONC 33.3 g/dl (32.0-36.5); MONO # 0.6 10^3/uL (0.0-0.8); MONO % 7.4 % (2.0-8.0); NEUTROPHILS # 6.4 10^3/uL (1.5-8.5); NEUTROPHILS % 81.4 % (36.0-66.0); PLATELET COUNT, AUTOMATED 118 10^3/uL (150-450); RED BLOOD COUNT 4.77 10^6/uL (4.30-6.10); WHITE BLOOD COUNT 7.8 10^3/uL (4.0-10.0)
[2020-10-26 07:37] LABS: BLOOD UREA NITROGEN 32 MG/DL (7-18); CALCIUM LEVEL 8.3 MG/DL (8.8-10.2); CARBON DIOXIDE LEVEL 29 MEQ/L (21-32); CHLORIDE LEVEL 105 MEQ/L (98-107); CREATININE FOR GFR 1.03 MG/DL (0.70-1.30); GLOMERULAR FILTRATION RATE > 60.0 (>42); GLUCOSE, FASTING 201 MG/DL (70-100); POTASSIUM SERUM 3.9 MEQ/L (3.5-5.1); SODIUM LEVEL 142 MEQ/L (136-145)
[2020-10-26] MEDS: MIRALAX *UNIT DOSE* 17GM PACKET PO SCH (08:20)
[2020-10-26] MEDS: ASPIRIN 81MG ENTERIC TABLET PO SCH (08:20)
[2020-10-26] MEDS: SODIUM BICARBONATE 325 MG TAB PO SCH (08:20)
[2020-10-26] MEDS: VITAMIN D 1,000 INTERNATIONAL UNITS TABLET PO SCH (08:20)
[2020-10-26] MEDS: allopurinoL 300 MG TAB PO SCH (08:20)
[2020-10-26] MEDS: MAGNESIUM OXIDE 400MG TAB (MAG-OX) PO SCH (08:21)
[2020-10-26] MEDS: FUROSEMIDE 20 MG TAB PO SCH (08:21)
[2020-10-26] MEDS: PRIMIDONE 50 MG TAB PO SCH (08:21)
[2020-10-26] MEDS: POTASSIUM CHLORIDE 10 MEQ SR TABLET PO SCH (08:21)
[2020-10-26 08:22] VITALS: BP 126/72
[2020-10-26] MEDS: METOPROLOL SUCC (TopROL XL) 50MG **XL** TAB PO SCH (08:22)
[2020-10-26] MEDS: HumaLOG INSULIN (NovoLOG) PER UNIT SC SCH ×2 (08:22→12:00)
[2020-10-26] MEDS: ENOXAPARIN 40MG/0.4ML SYRINGE (J1650 PER 10MG) SC SCH (08:23)
--- NOTE | 2020-10-26 15:50 | DS.PDOC ---
Discharge Summary General Date of Admission Oct 21, 2020 at 14:53 Date of Discharge 10/26/2020 Primary Care Physician: FERNY LOYA PA-C Attending Physician: ZAHRA CHANG DO Specialist/Consultants Involve: LATASHA GAN MD Discharge Summary PROCEDURES PERFORMED DURING STAY: None. ADMITTING DIAGNOSES: 1. Transverse myelitis. 2. Type 2 diabetes mellitus 3. Hypertension 4. Obstructive sleep apnea 5. Hyperlipidemia 6. Stasis dermatitis DISCHARGE DIAGNOSES: 1. Transverse myelitis, improved. 2. Type 2 diabetes mellitus 3. Hypertension 4. Instructive sleep apnea 5. Hyperlipidemia 6. Stasis dermatitis COMPLICATIONS/CHIEF COMPLAINT: Transverse Myelitis. HISTORY OF PRESENT ILLNESS: Patient is a 70-year-old male who presented to the emergency department on 10/21/2020 from his neurology office with concern for transverse myelitis. Patient states he has had chronic right leg weakness since 2000 which she has been worked up for. Patient started developing left leg weakness a few months ago. Patient had multiple MRIs of his head and spine looking for the root cause of this. There was some concern for cervical and lumbar stenosis and the patient saw Dr. Rodriguez of orthopedic surgery who did not recommend surgery at that time because according to the patient since he is not in pain there is no reason to do surgery as this would most likely not fix the problem. An MRI of the thoracic spine performed at the neurology office came back concerning for transverse myelitis and the patient was sent for steroids, physical therapy and repeat MRI with IV contrast. Patient received this MRI which did show signs concerning for subacute transverse myelitis and the patient was admitted to the hospital. There was also shown to be a ventral paracentral disc protrusion that was mildly impinging on the left hemicord although this was most likely not the reason for the patient's symptoms. HOSPITAL COURSE: Patient received a 5-day course of 1 g of Solu-Medrol IV. Patient's blood sugars became quite elevated requiring the patient to be placed on long-acting insulin while he was hospitalized. Patient's blood sugars did remain high on the day of discharge however, due to the patient not being on Solu-Medrol anymore this long-acting insulin was not continued as the patient's diabetes had been well controlled prior to his hospitalization and the risk for hypoglycemic episodes would be greater if the patient was started on the basal insulin. Patient was advised to continue with outpatient physical therapy. Patient was deemed ready for discharge by physical therapy on 10/26/2020. Patient was given a prescription for outpatient physical therapy. I advised the patient to continue to follow his blood sugars closely and take his home diabetic regimen. If the patient is unable to control his sugars he should co ntact his primary care provider for further instruction. Patient was deemed ready for discharge on 10/26/2020. DISCHARGE MEDICATIONS: Please see below. ALLERGIES: Please see below. PHYSICAL EXAMINATION ON DISCHARGE: VITAL SIGNS: Please see below. General: Alert and oriented male patient was sitting in the bedside chair when I walked in the room. I did witness the patient walking with physical therapy and the patient was able to walk with a walker without any difficulty. Patient did not appear to be in any acute distress. HEENT: Normocephalic, atraumatic, moist mucous membranes. Neck: No lymphadenopathy or thyromegaly Cardiac: Regular rate and rhythm, no murmurs, normal S1, normal S2 Pulm: Clear to auscultation bilaterally. No wheezes, rhonchi, rales Abd: Nondistended, nontender to palpation, normal bowel sounds Ext: No edema bilateral lower extremities Neuro: Patient reports equal sensation light touch in upper and lower extremities bilaterally. Cranial nerves III through XII intact bilaterally. Patient is 5/5 strength in the upper extremities bilaterally. Patient has 4/5 s trength in left hip flexion but 5/5 strength in all other muscle groups of the lower extremities tested bilaterally. LABORATORY DATA: Please see below. IMAGING: MRI of the thoracic spine without and with contrast performed on 10/21/2020 was reported to show mild mild low malic changes to T3-T4 and T4 level with cord atrophy. No abnormal cord signal demonstrated on pre or postcontrast imaging. Findings may be the sequela of prior acute transverse myelitis. 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 Left paracentral disc protrusion at T5-6 the left side of the ventral subarachnoid space with mild left hemicord impingement. PROGNOSIS: Good ACTIVITY: As tolerated. DIET: Consistent carbohydrate DISCHARGE PLAN: Discharge home with prescription for outpatient physical therapy DISPOSITION: 01 Home, Self-Care. DISCHARGE INSTRUCTIONS: 1. Follow-up with your primary care provider within 5 to 7 days of discharge. 2. Follow-up with Dr. Gan at [facility] neurology as scheduled 3. Continue to monitor your blood sugar and if your blood sugar remains high in your home diabetic regimen, contact your primary care provider 4. Follow-up with physical therapy outpatient. 5. Return to the emergency department if your symptoms worsen and/or return ITEMS TO FOLLOWUP ON ON OUTPATIENT: 1. Diabetic control. DISCHARGE CONDITION: Stable. TIME SPENT ON DISCHARGE: Greater than 30 minutes. Vital Signs/I&Os Vital Signs Date Time Temp Pulse Resp B/P (MAP) Pulse Ox O2 Delivery O2 Flow Rate FiO2 10/26/20 08:22 64 126/72 10/26/20 06:00 97.2 18 99 Room Air I&O- Last 24 Hours up to 6 AM 10/26/20 05:59 Intake Total 2256 ml Output Total 2950 ml Balance -694 ml Laboratory Data Labs 24H Laboratory Tests 2 10/25/20 16:56: Bedside Glucose (Misc Panel) 313H 10/25/20 20:40: Bedside Glucose (Misc Panel) 288H 10/26/20 07:01: Immature Granulocyte % (Auto) 0.8, Neutrophils (%) (Auto) 81.4H, Lymphocytes (%) (Auto) 10.4L, Monocytes (%) (Auto) 7.4, Eosinophils (%) (Auto) 0.0, Basophils (% ) (Auto) 0.0, Neutrophils # (Auto) 6.4, Lymphocytes # (Auto) 0.8L, Monocytes # (Auto) 0.6, Eosinophils # (Auto) 0.0, Basophils # (Auto) 0.0, Nucleated Red Blood Cells % (auto) 0.0, Anion Gap 8, Glomerular Filtration Rate > 60.0, Calcium Level 8.3L, Magnesium Level 2.0 CBC/BMP Laboratory Tests 10/26/20 07:01 FSBS Laboratory Tests Test 10/25/20 16:56 10/25/20 20:40 Range/Units Bedside Glucose (Misc Panel) 313 288 83-110 MG/DL Discharge Medications Scheduled Aspirin (Aspirin EC) 81 Mg Tabec, 81 MG PO DAILY, (Reported) Atorvastatin Calcium (Atorvastatin Calcium) 10 Mg Tab, 10 MG PO QHS, (Reported) Cholecalciferol (Vitamin D3) (Vitamin D3) 50 Mcg Capsule, 50 MCG PO DAILY, (Reported) Dulaglutide (Trulicity) 0.75 Mg/0.5 Ml Inj, 0.75 MG SC QWEEK, (Reported) Sunday Furosemide (Furosemide) 20 Mg Tablet, 20 MG PO DAILY, (Reported) Magnesium Oxide (Magnesium Oxide) 400 Mg Tablet, 400 MG PO BID, (Reported) Metoprolol Succinate (Metoprolol Succinate) 50 Mg Tab, 50 MG PO DAILY, (Reported) Potassium Chloride (Potassium Chloride) 10 Meq Capsule.er, 10 MEQ PO DAILY, (Reported) TAKES 2 HOURS AFTER MORNING MEDICATIONS Primidone (Primidone) 50 Mg Tab, 50 MG PO BID, (Reported) Sitagliptin Phosphate (Januvia) 100 Mg Tab, 100 MG PO DAILY, (Reported) Sodium Bicarbonate (Sodium Bicarbonate) 650 Mg Tablet, 650 MG PO BID, (Reported) allopurinoL (allopurinoL) 300 Mg Tablet, 300 MG PO DAILY, (Reported) Scheduled PRN Clobetasol Propionate (Temovate) 15 Gm Oint...g., 1 APLCT TOP BID PRN for PSORIASIS, (Reported) apply to affected area(s) Docusate Sodium (Docusate Sodium) 100 Mg Capsule, 100 MG PO BID PRN for CONSTIPATION, (Reported) Polyethylene Glycol 3350 (Polyethylene Glycol 3350) 17 Gm Powd.pack, 17 GRAM PO DAILY PRN for CONSTIPATION, (Reported) Allergies Coded Allergies: indomethacin (Verified Adverse Reaction, Intermediate, BLOOD IN URINE, 10/21/20) morphine (Verified Adverse Reaction, Intermediate, NIGHT TERRORS, 10/21/20) Sulfa (Sulfonamide Antibiotics) (Verified Adverse Reaction, Mild, NAUSEA, 10/21/20) ZAHRA CHANG DO Oct 26, 2020 15:50
== END 2020-10-26 12:47 | disposition home or self-care (01) | DRG 99 ==
LOC: M ED 13:57 → M ED INP 14:53 → ENRESERV 18:19 → M MSPAV 19:43
PROVIDERS: ADMIT General Practice; ATTEND Family Medicine
DX: G37.3 Acute transverse myelitis in demyelinating disease of central nervous system (principal); I10 Essential (primary) hypertension; E78.5 Hyperlipidemia, unspecified; G47.33 Obstructive sleep apnea (adult) (pediatric); E11.51 Type 2 diabetes mellitus with diabetic peripheral angiopathy without gangrene; Z79.82 Long term (current) use of aspirin; Z79.899 Other long term (current) drug therapy; Z88.5 Allergy status to narcotic agent; Z88.2 Allergy status to sulfonamides; Z88.8 Allergy status to other drugs, medicaments and biological substances; Z85.038 Personal history of other malignant neoplasm of large intestine; Z87.442 Personal history of urinary calculi

== ENCOUNTER → 2021-01-17 | Outpatient (REF) | payer MEDICARE, OTHER ==
[~2021-01-17] MED LIST changes: +ALLO300T2 PO; +DOCU100C16 PO; +FURO20TA2 PO; +POLY17PO10 PO; +TEMO0.0517 TOP; +VITA200020 PO
[2021-01-17 16:15] LABS: BASO # 0.1 10^3/uL (0.0-0.2); BASO % 0.6 % (0.0-1.0); EOS # 0.2 10^3/uL (0.0-0.5); EOS % 1.9 % (0.0-3.0); HEMATOCRIT 41.8 % (42.0-52.0); HEMOGLOBIN 13.6 g/dl (13.5-17.5); LYMPH # 1.6 10^3/uL (1.5-5.0); LYMPH % 20.2 % (24.0-44.0); MEAN CORPUSCULAR HEMOGLOBIN 28.8 pg (27.0-33.0); MEAN CORPUSCULAR HGB CONC 32.5 g/dl (32.0-36.5); MEAN CORPUSCULAR VOLUME 88.6 fl (80.0-96.0); MONO # 0.8 10^3/uL (0.0-0.8); MONO % 10.5 % (2.0-8.0); NEUTROPHILS # 5.2 10^3/uL (1.5-8.5); NEUTROPHILS % 66.5 % (36.0-66.0); PLATELET COUNT, AUTOMATED 125 10^3/uL (150-450); RED BLOOD COUNT 4.72 10^6/uL (4.30-6.10); WHITE BLOOD COUNT 7.8 10^3/uL (4.0-10.0)
[2021-01-17 16:24] LABS: ALBUMIN 3.4 GM/DL (3.2-5.2); ALT/SGPT 20 U/L (12-78); BILIRUBIN,TOTAL 0.4 MG/DL (0.2-1.0); BLOOD UREA NITROGEN 24 MG/DL (7-18); CALCIUM LEVEL 9.4 MG/DL (8.8-10.2); CARBON DIOXIDE LEVEL 31 MEQ/L (21-32); CHLORIDE LEVEL 105 MEQ/L (98-107); CHOLESTEROL LEVEL 146 MG/DL (<200); CHOLESTEROL RISK RATIO 3.743 (<5); CREATININE FOR GFR 1.05 MG/DL (0.70-1.30); GLOMERULAR FILTRATION RATE > 60.0 (>42); GLUCOSE, FASTING 130 MG/DL (70-100); HDL CHOLESTEROL 39 MG/DL (>40); LDL CHOLESTEROL 84 MG/DL (<100); NON-HDL-C 107 MG/DL; SODIUM LEVEL 142 MEQ/L (136-145); TOTAL PROTEIN 6.2 GM/DL (6.4-8.2); TRIGLYCERIDES LEVEL 113 MG/DL (<150); URIC ACID 5.2 MG/DL (3.5-7.2)
[2021-01-17 17:01] LABS: MALB URINE SIEMENS 17.3 MG/L; MAU/CREAT RATIO 7.5 MCG/MG (0.0-30.0)
[2021-01-17 20:14] LABS: HEMOGLOBIN A1c 5.7 %
== END ==
LOC: M SFHCCAPE 07:18
PROVIDERS: ATTEND Physician Assistant
DX: M10.9 Gout, unspecified (principal); E11.9 Type 2 diabetes mellitus without complications

== ENCOUNTER → 2021-04-27 | Outpatient (REF) | payer MEDICARE, OTHER ==
[~2021-04-27] MED LIST changes: +BENA-8 PO; -BENA20TA8 PO
[2021-04-27 16:18] LABS: BASO % 0.4 % (0.0-1.0); EOS # 0.1 10^3/uL (0.0-0.5); EOS % 1.4 % (0.0-3.0); HEMATOCRIT 46.9 % (42.0-52.0); HEMOGLOBIN 15.3 g/dl (13.5-17.5); LYMPH # 1.8 10^3/uL (1.5-5.0); LYMPH % 22.3 % (24.0-44.0); MEAN CORPUSCULAR HEMOGLOBIN 28.8 pg (27.0-33.0); MEAN CORPUSCULAR HGB CONC 32.6 g/dl (32.0-36.5); MEAN CORPUSCULAR VOLUME 88.2 fl (80.0-96.0); MONO # 0.7 10^3/uL (0.0-0.8); MONO % 8.7 % (2.0-8.0); NEUTROPHILS # 5.5 10^3/uL (1.5-8.5); NEUTROPHILS % 67.1 % (36.0-66.0); PLATELET COUNT, AUTOMATED 129 10^3/uL (150-450); RED BLOOD COUNT 5.32 10^6/uL (4.30-6.10); WHITE BLOOD COUNT 8.1 10^3/uL (4.0-10.0)
[2021-04-27 17:09] LABS: ALT/SGPT 25 U/L (12-78); BILIRUBIN,TOTAL 0.7 MG/DL (0.2-1.0); BLOOD UREA NITROGEN 27 MG/DL (7-18); CALCIUM LEVEL 9.4 MG/DL (8.8-10.2); CARBON DIOXIDE LEVEL 30 MEQ/L (21-32); CHLORIDE LEVEL 103 MEQ/L (98-107); CHOLESTEROL LEVEL 137 MG/DL (<200); CHOLESTEROL RISK RATIO 3.805 (<5); CREATININE FOR GFR 1.18 MG/DL (0.70-1.30); GLOMERULAR FILTRATION RATE > 60.0 (>42); GLUCOSE, FASTING 133 MG/DL (70-100); HDL CHOLESTEROL 36 MG/DL (>40); LDL CHOLESTEROL 65 MG/DL (<100); NON-HDL-C 101 MG/DL; POTASSIUM SERUM 4.2 MEQ/L (3.5-5.1); SODIUM LEVEL 141 MEQ/L (136-145); TRIGLYCERIDES LEVEL 178 MG/DL (<150)
[2021-04-27 18:10] LABS: HEMOGLOBIN A1c 6.1 %
== END ==
LOC: M SFHCCAPE 07:25
PROVIDERS: ATTEND Physician Assistant
DX: E11.9 Type 2 diabetes mellitus without complications (principal)

== ENCOUNTER → 2021-05-03 | Outpatient (CLI) | payer MEDICARE, OTHER | LOC: M CLY 12:48 | PROVIDERS: ATTEND Physician Assistant | DX: M19.032 Primary osteoarthritis, left wrist (principal); M19.042 Primary osteoarthritis, left hand; M19.012 Primary osteoarthritis, left shoulder; M19.022 Primary osteoarthritis, left elbow ==

== ENCOUNTER → 2021-08-29 | Outpatient (CLI) | payer MEDICARE, BC, OTHER | LOC: M RAD 09:18 | PROVIDERS: ATTEND Physician Assistant | DX: N20.0 Calculus of kidney (principal) ==

== ENCOUNTER → 2021-08-30 | Outpatient (REF) | payer MEDICARE, OTHER ==
[2021-08-30 16:04] LABS: BASO % 0.3 % (0.0-1.0); EOS # 0.1 10^3/uL (0.0-0.5); EOS % 1.5 % (0.0-3.0); HEMATOCRIT 44.1 % (42.0-52.0); HEMOGLOBIN 14.7 g/dl (13.5-17.5); LYMPH # 1.5 10^3/uL (1.5-5.0); LYMPH % 20.4 % (24.0-44.0); MEAN CORPUSCULAR HEMOGLOBIN 30.1 pg (27.0-33.0); MEAN CORPUSCULAR HGB CONC 33.3 g/dl (32.0-36.5); MEAN CORPUSCULAR VOLUME 90.2 fl (80.0-96.0); MONO # 0.6 10^3/uL (0.0-0.8); MONO % 8.6 % (2.0-8.0); NEUTROPHILS # 5.1 10^3/uL (1.5-8.5); NEUTROPHILS % 69.1 % (36.0-66.0); PLATELET COUNT, AUTOMATED 121 10^3/uL (150-450); RED BLOOD COUNT 4.89 10^6/uL (4.30-6.10); WHITE BLOOD COUNT 7.4 10^3/uL (4.0-10.0)
[2021-08-30 16:15] LABS: ALBUMIN 3.8 GM/DL (3.2-5.2); ALT/SGPT 18 U/L (12-78); BILIRUBIN,TOTAL 0.7 MG/DL (0.2-1.0); BLOOD UREA NITROGEN 31 MG/DL (7-18); CALCIUM LEVEL 9.2 MG/DL (8.8-10.2); CARBON DIOXIDE LEVEL 32 MEQ/L (21-32); CHLORIDE LEVEL 103 MEQ/L (98-107); CHOLESTEROL LEVEL 133 MG/DL (<200); CREATININE FOR GFR 1.19 MG/DL (0.70-1.30); GLOMERULAR FILTRATION RATE > 60.0 (>42); GLUCOSE, FASTING 128 MG/DL (70-100); HDL CHOLESTEROL 39 MG/DL (>40); LDL CHOLESTEROL 71 MG/DL (<100); NON-HDL-C 94 MG/DL; POTASSIUM SERUM 4.1 MEQ/L (3.5-5.1); SODIUM LEVEL 139 MEQ/L (136-145); TOTAL PROTEIN 6.6 GM/DL (6.4-8.2); TRIGLYCERIDES LEVEL 117 MG/DL (<150)
== END ==
LOC: M SFHCCAPE 07:24
PROVIDERS: ATTEND Physician Assistant
DX: E11.9 Type 2 diabetes mellitus without complications (principal)

== ENCOUNTER 2021-11-10 12:58 | Outpatient (RCR) | payer MEDICARE, BC, OTHER | END 2021-11-13 | LOC: M OT 12:58 | PROVIDERS: ATTEND Orthopaedic Surgery Hand Surgery | DX: S60.222D Contusion of left hand, subsequent encounter (principal); M25.642 Stiffness of left hand, not elsewhere classified ==

== ENCOUNTER 2021-11-17 16:45 | Emergency (ER) | payer MEDICARE, BC, OTHER ==
[~2021-11-17] VITALS: Ht 180.3 cm; Wt 101.5 kg
[2021-11-17 18:08] LABS: BASO % 0.5 % (0.0-1.0); EOS # 0.1 10^3/uL (0.0-0.5); EOS % 1.1 % (0.0-3.0); HEMOGLOBIN 14.6 g/dl (13.5-17.5); LYMPH # 1.6 10^3/uL (1.5-5.0); LYMPH % 22.1 % (24.0-44.0); MEAN CORPUSCULAR HEMOGLOBIN 30.1 pg (27.0-33.0); MEAN CORPUSCULAR VOLUME 88.7 fl (80.0-96.0); MONO # 0.5 10^3/uL (0.0-0.8); MONO % 7.3 % (2.0-8.0); NEUTROPHILS # 5.1 10^3/uL (1.5-8.5); NEUTROPHILS % 68.7 % (36.0-66.0); PLATELET COUNT, AUTOMATED 124 10^3/uL (150-450); RED BLOOD COUNT 4.85 10^6/uL (4.30-6.10); WHITE BLOOD COUNT 7.4 10^3/uL (4.0-10.0)
[2021-11-17 18:37] LABS: CALCIUM LEVEL 9.1 MG/DL (8.8-10.2); CK-MB VALUE MASS 5.5 NG/ML (<3.6); CREATININE FOR GFR 1.3 MG/DL (0.70-1.30); GLOMERULAR FILTRATION RATE 57.6 (>42); MB/CK RELATIVE INDEX 7.05 (< OR =4); POTASSIUM SERUM 3.7 MEQ/L (3.5-5.1)
[2021-11-17 19:45] VITALS: BP 152/72
== END 2021-11-17 22:15 | disposition home or self-care (01) ==
LOC: M ED 16:45
DX: H57.00 Unspecified anomaly of pupillary function (principal); R93.0 Abnormal findings on diagnostic imaging of skull and head, not elsewhere classified; I51.9 Heart disease, unspecified; E11.9 Type 2 diabetes mellitus without complications; M48.00 Spinal stenosis, site unspecified; Z85.038 Personal history of other malignant neoplasm of large intestine; Z90.49 Acquired absence of other specified parts of digestive tract; Z82.49 Family history of ischemic heart disease and other diseases of the circulatory system; Z82.3 Family history of stroke; Z79.84 Long term (current) use of oral hypoglycemic drugs; Z79.82 Long term (current) use of aspirin; Z79.899 Other long term (current) drug therapy; Z88.2 Allergy status to sulfonamides; Z88.5 Allergy status to narcotic agent; Z88.8 Allergy status to other drugs, medicaments and biological substances

== ENCOUNTER 2021-12-13 12:10 | Outpatient (RCR) | payer MEDICARE, BC, OTHER | END 2021-12-14 | LOC: M OT 12:10 | PROVIDERS: ATTEND Orthopaedic Surgery Hand Surgery | DX: M25.642 Stiffness of left hand, not elsewhere classified (principal); S60.222D Contusion of left hand, subsequent encounter ==

== ENCOUNTER 2022-01-12 10:54 | Outpatient (RCR) | payer MEDICARE, BC, OTHER | END 2022-01-13 | LOC: M OT 10:54 | PROVIDERS: ATTEND Orthopaedic Surgery Hand Surgery | DX: M25.642 Stiffness of left hand, not elsewhere classified (principal); S60.222D Contusion of left hand, subsequent encounter ==

== ENCOUNTER 2022-01-26 10:34 | Outpatient (RCR) | payer MEDICARE, BC, OTHER | END 2022-02-13 | LOC: M OT 10:34 | PROVIDERS: ATTEND Orthopaedic Surgery Hand Surgery | DX: M25.642 Stiffness of left hand, not elsewhere classified (principal); S60.222D Contusion of left hand, subsequent encounter ==

== ENCOUNTER → 2022-03-08 | Outpatient (REF) | payer MEDICARE, OTHER ==
[2022-03-08 17:08] LABS: BASO % 0.3 % (0.0-1.0); EOS # 0.1 10^3/uL (0.0-0.5); EOS % 1.3 % (0.0-3.0); HEMATOCRIT 44.1 % (42.0-52.0); LYMPH # 1.5 10^3/uL (1.5-5.0); LYMPH % 21.1 % (24.0-44.0); MEAN CORPUSCULAR HEMOGLOBIN 29.4 pg (27.0-33.0); MEAN CORPUSCULAR HGB CONC 31.7 g/dl (32.0-36.5); MEAN CORPUSCULAR VOLUME 92.5 fl (80.0-96.0); MONO # 0.6 10^3/uL (0.0-0.8); MONO % 7.6 % (2.0-8.0); NEUTROPHILS % 69.3 % (36.0-66.0); PLATELET COUNT, AUTOMATED 153 10^3/uL (150-450); RED BLOOD COUNT 4.77 10^6/uL (4.30-6.10); WHITE BLOOD COUNT 7.2 10^3/uL (4.0-10.0)
[2022-03-08 18:33] LABS: ALBUMIN 3.6 G/DL (3.2-5.2); ALT/SGPT 21 U/L (7.0-40); BILIRUBIN,TOTAL 0.3 MG/DL (0.3-1.2); BLOOD UREA NITROGEN 29 MG/DL (9-23); CALCIUM LEVEL 8.7 MG/DL (8.3-10.6); CARBON DIOXIDE LEVEL 32 MMOL/L (20-31); CHLORIDE LEVEL 101 MMOL/L (98-107); CHOLESTEROL LEVEL 154 MG/DL (<200); CHOLESTEROL RISK RATIO 4.63 (<5); CREATININE FOR GFR 1.15 MG/DL (0.70-1.30); GLOMERULAR FILTRATION RATE > 60.0 (>42); GLUCOSE, FASTING 134 MG/DL (74-106); HDL CHOLESTEROL 33.2 MG/DL (>40); NON-HDL-C 121 MG/DL; POTASSIUM SERUM 4.3 MMOL/L (3.5-5.1); SODIUM LEVEL 141 MMOL/L (136-145); TOTAL PROTEIN 6.4 G/DL (5.7-8.2); TRIGLYCERIDES LEVEL 134 MG/DL (<150)
== END ==
LOC: M SFHCCAPE 07:13
PROVIDERS: ATTEND Physician Assistant
DX: E11.9 Type 2 diabetes mellitus without complications (principal)

== ENCOUNTER → 2022-07-06 | Outpatient (REF) | payer MEDICARE, OTHER ==
[~2022-07-06] MED LIST changes: -POTA10CA32 PO; +POTA10CA33 PO
[2022-07-06 17:16] LABS: BASO % 0.5 % (0.0-1.0); EOS # 0.1 10^3/uL (0.0-0.5); EOS % 1.6 % (0.0-3.0); HEMATOCRIT 47.1 % (42.0-52.0); HEMOGLOBIN 15.1 g/dl (13.5-17.5); LYMPH # 1.9 10^3/uL (1.5-5.0); MEAN CORPUSCULAR HEMOGLOBIN 29.2 pg (27.0-33.0); MEAN CORPUSCULAR HGB CONC 32.1 g/dl (32.0-36.5); MEAN CORPUSCULAR VOLUME 91.1 fl (80.0-96.0); MONO # 0.7 10^3/uL (0.0-0.8); MONO % 8.9 % (2.0-8.0); NEUTROPHILS # 4.7 10^3/uL (1.5-8.5); NEUTROPHILS % 63.7 % (36.0-66.0); PLATELET COUNT, AUTOMATED 136 10^3/uL (150-450); RED BLOOD COUNT 5.17 10^6/uL (4.30-6.10); WHITE BLOOD COUNT 7.4 10^3/uL (4.0-10.0)
[2022-07-06 17:37] LABS: HEMOGLOBIN A1c 6.2 % (4.0-6.0)
[2022-07-06 17:38] LABS: TOTAL 25(OH) VITAMIN D 44.9 NG/ML (20.0-100.0); VITAMIN B12 LEVEL 366 PG/ML (211-911)
[2022-07-06 17:39] LABS: ALBUMIN 3.8 G/DL (3.2-5.2); ALKALINE PHOSPHATASE 100 U/L (46-116); ALT/SGPT 29 U/L (7.0-40); AST/SGOT 18 U/L (<34); BILIRUBIN,TOTAL 0.6 MG/DL (0.3-1.2); BLOOD UREA NITROGEN 29 MG/DL (9-23); CALCIUM LEVEL 9.2 MG/DL (8.3-10.6); CARBON DIOXIDE LEVEL 33 MMOL/L (20-31); CHLORIDE LEVEL 103 MMOL/L (98-107); CHOLESTEROL LEVEL 143 MG/DL (<200); CREATININE FOR GFR 1.16 MG/DL (0.70-1.30); FOLATE 15.6 NG/ML (>5.4); GLOMERULAR FILTRATION RATE > 60.0 (>42); GLUCOSE, FASTING 135 MG/DL (74-106); HDL CHOLESTEROL 36.6 MG/DL (>40); NON-HDL-C 106.4 MG/DL; POTASSIUM SERUM 4.4 MMOL/L (3.5-5.1); SODIUM LEVEL 141 MMOL/L (136-145); TOTAL PROTEIN 6.5 G/DL (5.7-8.2); TRIGLYCERIDES LEVEL 157 MG/DL (<150); URIC ACID 5.1 MG/DL (3.7-9.2)
== END ==
LOC: M SFHCCAPE 08:14
PROVIDERS: ATTEND Physician Assistant
DX: M10.9 Gout, unspecified (principal); E11.9 Type 2 diabetes mellitus without complications; I10 Essential (primary) hypertension; Z79.899 Other long term (current) drug therapy

== ENCOUNTER → 2022-09-04 | Outpatient (CLI) | payer MEDICARE, BC, OTHER | LOC: M RAD 08:38 | PROVIDERS: ATTEND Physician Assistant | DX: Z87.442 Personal history of urinary calculi (principal) ==

== ENCOUNTER 2022-09-07 06:36 | Day surgery (SDC) | payer MEDICARE, BC, OTHER ==
[~2022-09-07] VITALS: Ht 180.3 cm; Wt 106.7 kg
[~2022-09-07 06:36] MED LIST changes: +BSS IRRIG/VANCO(10MG)/TOBRA(5MG)/EPINEPH(1:1000-0.5CC)500ML BAG-ORONLY IR ONE; +CYCLOPENTOLATE 1% OPHTH SOLN 2ML BTL OS SCH; +LIDOCAINE 3.5 % 1ML OPHTH TOPICAL GEL OU ONE; +OFLOXACIN 0.3 % (OCUFLOX) OPTH SOL 5ML OS ONE; +PHENYLEPHRINE 10% OPHTH SOL 5ML OS PRN; +PHENYLEPHRINE 2.5% OPHTH SOL 2ML OS SCH; +TROPICAMIDE 1% OPHTH SOLN 15ML OS SCH
[2022-09-07] MEDS ORDERED: CEFUROXIME 1MG/0.1ML INTRACAMERAL INJ As Ordered ONE (06:58)
[2022-09-07] MEDS ORDERED: LIDOCAINE 1% SDV 5ML VIAL As Ordered ONE (06:58)
[2022-09-07] MEDS ORDERED: fentaNYL 100 MCG/2 ML INJECTION As Ordered ONE (07:14)
[2022-09-07] MEDS ORDERED: MIDAZOLAM INJ 2MG/2ML VIAL As Ordered ONE (07:14)
[2022-09-07] MEDS ORDERED: LABETALOL 100MG/20ML VIAL As Ordered ONE (09:03)
[2022-09-07 09:06] VITALS: BP 175/84
== END 2022-09-07 09:45 | disposition home or self-care (01) ==
LOC: M SDC 06:36
PROVIDERS: ATTEND Ophthalmology
DX: H25.12 Age-related nuclear cataract, left eye (principal); E11.9 Type 2 diabetes mellitus without complications; G47.30 Sleep apnea, unspecified; I10 Essential (primary) hypertension; Z88.2 Allergy status to sulfonamides; Z88.5 Allergy status to narcotic agent; Z88.8 Allergy status to other drugs, medicaments and biological substances; Z79.899 Other long term (current) drug therapy
CPT/HCPCS: 66984; J0697; J2250; J3010; V2632

== ENCOUNTER 2022-10-11 11:36 | Day surgery (SDC) | payer MEDICARE, BC, OTHER ==
[~2022-10-11] VITALS: Ht 180.3 cm; Wt 106.1 kg
[~2022-10-11 11:36] MED LIST changes: +ACETYLCHOLINE OPHTH SOLN 1% 2ML (MIOCHOL-E) As Ordered ONE; +CEFUROXIME 1MG/0.1ML INTRACAMERAL INJ As Ordered ONE; +CYCLOPENTOLATE 1% OPHTH SOLN 2ML BTL OD SCH; -CYCLOPENTOLATE 1% OPHTH SOLN 2ML BTL OS SCH; +LIDOCAINE 1% SDV 5ML VIAL As Ordered ONE; +OFLOXACIN 0.3 % (OCUFLOX) OPTH SOL 5ML OD ONE; -OFLOXACIN 0.3 % (OCUFLOX) OPTH SOL 5ML OS ONE; +PHENYLEPHRINE 10% OPHTH SOL 5ML OD PRN; -PHENYLEPHRINE 10% OPHTH SOL 5ML OS PRN; +PHENYLEPHRINE 2.5% OPHTH SOL 2ML OD SCH; -PHENYLEPHRINE 2.5% OPHTH SOL 2ML OS SCH; -POTA10CA33 PO; +POTA10CA60 PO; +TROPICAMIDE 1% OPHTH SOLN 15ML OD SCH; -TROPICAMIDE 1% OPHTH SOLN 15ML OS SCH
[2022-10-11] MEDS ORDERED: fentaNYL 100 MCG/2 ML INJECTION As Ordered ONE (11:57)
[2022-10-11] MEDS ORDERED: MIDAZOLAM INJ 2MG/2ML VIAL As Ordered ONE (11:57)
[2022-10-11 13:12] VITALS: BP 138/70; TEMP 97.3; O2SAT 96
== END 2022-10-11 13:40 | disposition home or self-care (01) ==
LOC: M SDC 11:36
PROVIDERS: ATTEND Ophthalmology
DX: H25.11 Age-related nuclear cataract, right eye (principal); I10 Essential (primary) hypertension; E78.5 Hyperlipidemia, unspecified; E11.9 Type 2 diabetes mellitus without complications; M10.9 Gout, unspecified; Z79.82 Long term (current) use of aspirin; Z79.899 Other long term (current) drug therapy; Z88.2 Allergy status to sulfonamides; Z88.5 Allergy status to narcotic agent; Z88.8 Allergy status to other drugs, medicaments and biological substances; Z92.21 Personal history of antineoplastic chemotherapy; Z85.09 Personal history of malignant neoplasm of other digestive organs
CPT/HCPCS: 66984; J0697; J2250; J3010; V2632

== ENCOUNTER → 2022-11-02 | Outpatient (REF) | payer MEDICARE, OTHER ==
[~2022-11-02] MED LIST changes: -ACETYLCHOLINE OPHTH SOLN 1% 2ML (MIOCHOL-E) As Ordered ONE; -BSS IRRIG/VANCO(10MG)/TOBRA(5MG)/EPINEPH(1:1000-0.5CC)500ML BAG-ORONLY IR ONE; -CEFUROXIME 1MG/0.1ML INTRACAMERAL INJ As Ordered ONE; -CYCLOPENTOLATE 1% OPHTH SOLN 2ML BTL OD SCH; -LIDOCAINE 1% SDV 5ML VIAL As Ordered ONE; -LIDOCAINE 3.5 % 1ML OPHTH TOPICAL GEL OU ONE; -OFLOXACIN 0.3 % (OCUFLOX) OPTH SOL 5ML OD ONE; -PHENYLEPHRINE 10% OPHTH SOL 5ML OD PRN; -PHENYLEPHRINE 2.5% OPHTH SOL 2ML OD SCH; -TROPICAMIDE 1% OPHTH SOLN 15ML OD SCH
[2022-11-02 17:47] LABS: BASO % 0.5 % (0.0-1.0); EOS # 0.1 10^3/uL (0.0-0.5); EOS % 1.2 % (0.0-3.0); HEMATOCRIT 47.3 % (42.0-52.0); HEMOGLOBIN 15.4 g/dl (13.5-17.5); LYMPH % 26.1 % (24.0-44.0); MEAN CORPUSCULAR HEMOGLOBIN 29.4 pg (27.0-33.0); MEAN CORPUSCULAR HGB CONC 32.6 g/dl (32.0-36.5); MEAN CORPUSCULAR VOLUME 90.4 fl (80.0-96.0); MONO # 0.6 10^3/uL (0.0-0.8); MONO % 8.1 % (2.0-8.0); NEUTROPHILS # 4.8 10^3/uL (1.5-8.5); PLATELET COUNT, AUTOMATED 123 10^3/uL (150-450); RED BLOOD COUNT 5.23 10^6/uL (4.30-6.10); WHITE BLOOD COUNT 7.5 10^3/uL (4.0-10.0)
[2022-11-02 18:10] LABS: HEMOGLOBIN A1c 6.5 % (4.0-6.0)
[2022-11-02 18:11] LABS: CREATININE, URINE 182.3 MG/DL; MAU/CREAT RATIO 8.7 MCG/MG (0.0-30.0)
[2022-11-02 18:13] LABS: ALBUMIN 3.9 G/DL (3.2-5.2); ALKALINE PHOSPHATASE 109 U/L (46-116); ALT/SGPT 25 U/L (7.0-40); AST/SGOT 16 U/L (<34); BILIRUBIN,TOTAL 0.7 MG/DL (0.3-1.2); BLOOD UREA NITROGEN 28 MG/DL (9-23); CARBON DIOXIDE LEVEL 30 MMOL/L (20-31); CHLORIDE LEVEL 102 MMOL/L (98-107); CHOLESTEROL LEVEL 130 MG/DL (<200); CREATININE FOR GFR 1.04 MG/DL (0.70-1.30); GLOMERULAR FILTRATION RATE > 60.0 (>42); GLUCOSE, FASTING 144 MG/DL (74-106); HDL CHOLESTEROL 38.2 MG/DL (>40); LDL CHOLESTEROL 64.2 MG/DL (<100); NON-HDL-C 91.8 MG/DL; POTASSIUM SERUM 4.3 MMOL/L (3.5-5.1); SODIUM LEVEL 140 MMOL/L (136-145); TOTAL PROTEIN 6.6 G/DL (5.7-8.2); TRIGLYCERIDES LEVEL 138 MG/DL (<150)
== END ==
LOC: M SFHCCAPE 08:03
PROVIDERS: ATTEND Physician Assistant
DX: E78.2 Mixed hyperlipidemia (principal); E11.69 Type 2 diabetes mellitus with other specified complication; E66.9 Obesity, unspecified; Z12.5 Encounter for screening for malignant neoplasm of prostate
CPT/HCPCS: 36415; 80053; 80061; 82043; 83036; 85025; G0103

== ENCOUNTER → 2023-02-19 | Outpatient (REF) | payer MEDICARE, BC, OTHER ==
[~2023-02-19] MED LIST changes: +GLIP5TAB17 PO; -GLIP5TAB8 PO
[2023-02-19 19:05] LABS: ALBUMIN 3.8 G/DL (3.2-5.2); BILIRUBIN,TOTAL 0.6 MG/DL (0.3-1.2); CALCIUM LEVEL 9.4 MG/DL (8.3-10.6); CHOLESTEROL RISK RATIO 4.21 (<5); CREATININE FOR GFR 1.26 MG/DL (0.70-1.30); GLOMERULAR FILTRATION RATE 59.6 (>42); POTASSIUM SERUM 4.6 MMOL/L (3.5-5.1); TOTAL PROTEIN 6.8 G/DL (5.7-8.2)
== END ==
LOC: M SFHCCAPE 08:30
PROVIDERS: ATTEND Physician Assistant Medical
DX: E78.2 Mixed hyperlipidemia (principal); E11.69 Type 2 diabetes mellitus with other specified complication

== ENCOUNTER → 2023-06-25 | Outpatient (REF) | payer MEDICARE, OTHER ==
[2023-06-25 17:55] LABS: BASO # 0.1 10^3/uL (0.0-0.2); BASO % 0.7 % (0.0-1.0); EOS # 0.1 10^3/uL (0.0-0.5); EOS % 1.5 % (0.0-3.0); HEMATOCRIT 46.5 % (42.0-52.0); HEMOGLOBIN 15.4 g/dl (13.5-17.5); LYMPH # 1.9 10^3/uL (1.5-5.0); MEAN CORPUSCULAR HEMOGLOBIN 29.8 pg (27.0-33.0); MEAN CORPUSCULAR HGB CONC 33.1 g/dl (32.0-36.5); MEAN CORPUSCULAR VOLUME 90.1 fl (80.0-96.0); MONO # 0.7 10^3/uL (0.0-0.8); MONO % 9.1 % (2.0-8.0); NEUTROPHILS # 4.6 10^3/uL (1.5-8.5); NEUTROPHILS % 62.4 % (36.0-66.0); PLATELET COUNT, AUTOMATED 132 10^3/uL (150-450); RED BLOOD COUNT 5.16 10^6/uL (4.30-6.10); WHITE BLOOD COUNT 7.4 10^3/uL (4.0-10.0)
[2023-06-25 18:11] LABS: HEMOGLOBIN A1c 6.8 % (4.0-6.0)
[2023-06-25 18:30] LABS: ALBUMIN 3.8 G/DL (3.2-5.2); ALKALINE PHOSPHATASE 119 U/L (46-116); ALT/SGPT 25 U/L (7.0-40); AST/SGOT 18 U/L (<34); BILIRUBIN,TOTAL 0.9 MG/DL (0.3-1.2); BLOOD UREA NITROGEN 32 MG/DL (9-23); CARBON DIOXIDE LEVEL 32 MMOL/L (20-31); CHLORIDE LEVEL 100 MMOL/L (98-107); CHOLESTEROL LEVEL 130 MG/DL (<200); CHOLESTEROL RISK RATIO 4.02 (<5); CREATININE FOR GFR 1.11 MG/DL (0.70-1.30); GLOMERULAR FILTRATION RATE > 60.0 (>42); GLUCOSE, FASTING 141 MG/DL (74-106); HDL CHOLESTEROL 32.3 MG/DL (>40); LDL CHOLESTEROL 57.5 MG/DL (<100); NON-HDL-C 97.7 MG/DL; POTASSIUM SERUM 4.2 MMOL/L (3.5-5.1); SODIUM LEVEL 138 MMOL/L (136-145); TOTAL PROTEIN 6.5 G/DL (5.7-8.2); TRIGLYCERIDES LEVEL 201 MG/DL (<150)
== END ==
LOC: M SFHCCAPE 08:37
PROVIDERS: ATTEND Physician Assistant Medical
DX: E78.2 Mixed hyperlipidemia (principal); E11.9 Type 2 diabetes mellitus without complications; I10 Essential (primary) hypertension; M10.9 Gout, unspecified

== ENCOUNTER → 2023-09-25 | Outpatient (CLI) | payer MEDICARE, BC ==
[~2023-09-25] MED LIST changes: -POTA10CA60 PO; +POTA10CA70 PO
== END ==
LOC: M RAD 14:37
PROVIDERS: ATTEND Physician Assistant
DX: Z87.442 Personal history of urinary calculi (principal)

== ENCOUNTER → 2023-11-05 | Outpatient (REF) | payer MEDICARE, BC ==
[2023-11-05 17:17] LABS: BASO % 0.5 % (0.0-1.0); EOS # 0.1 10^3/uL (0.0-0.5); EOS % 1.7 % (0.0-3.0); HEMOGLOBIN 14.6 g/dl (13.5-17.5); LYMPH # 1.5 10^3/uL (1.5-5.0); LYMPH % 24.2 % (24.0-44.0); MEAN CORPUSCULAR HEMOGLOBIN 30.3 pg (27.0-33.0); MEAN CORPUSCULAR HGB CONC 33.2 g/dl (32.0-36.5); MEAN CORPUSCULAR VOLUME 91.3 fl (80.0-96.0); MONO # 0.5 10^3/uL (0.0-0.8); MONO % 8.5 % (2.0-8.0); NEUTROPHILS # 4.1 10^3/uL (1.5-8.5); NEUTROPHILS % 64.9 % (36.0-66.0); PLATELET COUNT, AUTOMATED 127 10^3/uL (150-450); RED BLOOD COUNT 4.82 10^6/uL (4.30-6.10); WHITE BLOOD COUNT 6.4 10^3/uL (4.0-10.0)
[2023-11-05 17:30] LABS: ALBUMIN 3.7 G/DL (3.2-5.2); ALKALINE PHOSPHATASE 117 U/L (46-116); ALT/SGPT 26 U/L (7.0-40); AST/SGOT 22 U/L (<34); BILIRUBIN,TOTAL 0.4 MG/DL (0.3-1.2); BLOOD UREA NITROGEN 30 MG/DL (9-23); CALCIUM LEVEL 9.1 MG/DL (8.3-10.6); CARBON DIOXIDE LEVEL 33 MMOL/L (20-31); CHLORIDE LEVEL 102 MMOL/L (98-107); GLOMERULAR FILTRATION RATE > 60.0 (>42); GLUCOSE, FASTING 146 MG/DL (74-106); POTASSIUM SERUM 4.4 MMOL/L (3.5-5.1); SODIUM LEVEL 141 MMOL/L (136-145); TOTAL PROTEIN 6.3 G/DL (5.7-8.2)
[2023-11-05 18:13] LABS: HEMOGLOBIN A1c 6.2 % (4.0-6.0)
== END ==
LOC: M SFHCCAPE 07:26
PROVIDERS: ATTEND Physician Assistant Medical
DX: E11.9 Type 2 diabetes mellitus without complications (principal); G25.0 Essential tremor; M10.9 Gout, unspecified; Z12.5 Encounter for screening for malignant neoplasm of prostate
CPT/HCPCS: 80053; 83036; 85025; G0103

== ENCOUNTER 2024-03-03 11:38 | Day surgery (SDC) | payer MEDICARE, BC ==
[~2024-03-03] VITALS: Ht 180.3 cm; Wt 101.2 kg
[~2024-03-03 11:38] MED LIST changes: +ATOR40TA75 PO; +CARB25TA9 PO; +NS 250 ML IV ONE
[2024-03-03] MEDS ORDERED: propofoL 200 MG/20 ML VIAL As Ordered ONE (14:01)
[2024-03-03] MEDS ORDERED: LIDOCAINE 2% 100MG/5ML SDV (FOR ANES.) As Ordered ONE (14:01)
[2024-03-03 14:12] VITALS: TEMP 98.5
[2024-03-03 14:31] VITALS: BP 103/57; O2SAT 96
== END 2024-03-03 14:44 | disposition home or self-care (01) ==
LOC: M OPP 11:38
PROVIDERS: ATTEND Internal Medicine Gastroenterology
DX: Z12.11 Encounter for screening for malignant neoplasm of colon (principal); Z86.0100 Personal history of colon polyps, unspecified; Z85.038 Personal history of other malignant neoplasm of large intestine; K57.30 Diverticulosis of large intestine without perforation or abscess without bleeding; K64.0 First degree hemorrhoids; Z90.49 Acquired absence of other specified parts of digestive tract; E11.9 Type 2 diabetes mellitus without complications; I10 Essential (primary) hypertension; G20.A1 Parkinson's disease without dyskinesia, without mention of fluctuations; E78.00 Pure hypercholesterolemia, unspecified; M10.9 Gout, unspecified; Z79.899 Other long term (current) drug therapy; Z79.82 Long term (current) use of aspirin; Z88.2 Allergy status to sulfonamides; Z88.8 Allergy status to other drugs, medicaments and biological substances; Z88.5 Allergy status to narcotic agent; Z90.89 Acquired absence of other organs

== ENCOUNTER → 2024-03-10 | Outpatient (REF) | payer MEDICARE, BC ==
[~2024-03-10] MED LIST changes: -NS 250 ML IV ONE
[2024-03-10 20:00] LABS: HEMOGLOBIN A1c 6.3 % (4.0-6.0)
[2024-03-10 20:07] LABS: MAU/CREAT RATIO 3.5 MCG/MG (0.0-30.0)
[2024-03-10 20:08] LABS: ALBUMIN 3.7 G/DL (3.2-5.2); ALKALINE PHOSPHATASE 113 U/L (40-129); ALT/SGPT 20 U/L (7.0-40); AST/SGOT 17 U/L (<34); BILIRUBIN,TOTAL 0.6 MG/DL (0.3-1.2); BLOOD UREA NITROGEN 29 MG/DL (9-23); CALCIUM LEVEL 9.3 MG/DL (8.3-10.6); CARBON DIOXIDE LEVEL 31 MMOL/L (20-31); CHLORIDE LEVEL 103 MMOL/L (98-107); CHOLESTEROL LEVEL 153 MG/DL (<200); CHOLESTEROL RISK RATIO 3.93 (<5); CREATININE FOR GFR 1.05 MG/DL (0.70-1.30); GLOMERULAR FILTRATION RATE > 60.0 (>42); GLUCOSE, FASTING 153 MG/DL (74-106); HDL CHOLESTEROL 38.9 MG/DL (>40); LDL CHOLESTEROL 84.1 MG/DL (<100); NON-HDL-C 114.1 MG/DL; POTASSIUM SERUM 4.9 MMOL/L (3.5-5.1); SODIUM LEVEL 139 MMOL/L (136-145); TOTAL PROTEIN 6.9 G/DL (5.7-8.2); TRIGLYCERIDES LEVEL 150 MG/DL (<150)
== END ==
LOC: M SFHCCAPE 07:35
PROVIDERS: ATTEND Physician Assistant Medical
DX: E78.2 Mixed hyperlipidemia (principal); I10 Essential (primary) hypertension; E11.9 Type 2 diabetes mellitus without complications

== ENCOUNTER → 2024-06-24 | Outpatient (REF) | payer MEDICARE, BC ==
[2024-06-24 19:09] LABS: BASO % 0.4 % (0.0-1.0); EOS # 0.1 10^3/uL (0.0-0.5); EOS % 1.2 % (0.0-3.0); HEMATOCRIT 46.9 % (42.0-52.0); HEMOGLOBIN 15.6 g/dl (13.5-17.5); LYMPH # 1.3 10^3/uL (1.5-5.0); LYMPH % 16.8 % (24.0-44.0); MEAN CORPUSCULAR HEMOGLOBIN 29.7 pg (27.0-33.0); MEAN CORPUSCULAR HGB CONC 33.3 g/dl (32.0-36.5); MEAN CORPUSCULAR VOLUME 89.3 fl (80.0-96.0); MONO # 0.8 10^3/uL (0.0-0.8); MONO % 10.2 % (2.0-8.0); NEUTROPHILS # 5.5 10^3/uL (1.5-8.5); PLATELET COUNT, AUTOMATED 124 10^3/uL (150-450); RED BLOOD COUNT 5.25 10^6/uL (4.30-6.10); WHITE BLOOD COUNT 7.7 10^3/uL (4.0-10.0)
[2024-06-24 19:38] LABS: ALBUMIN 3.7 G/DL (3.2-5.2); ALKALINE PHOSPHATASE 116 U/L (40-129); ALT/SGPT 25 U/L (7.0-40); AST/SGOT 17 U/L (<34); BILIRUBIN,TOTAL 0.6 MG/DL (0.3-1.2); BLOOD UREA NITROGEN 36 MG/DL (9-23); CALCIUM LEVEL 8.9 MG/DL (8.3-10.6); CARBON DIOXIDE LEVEL 28 MMOL/L (20-31); CHLORIDE LEVEL 103 MMOL/L (98-107); CREATININE FOR GFR 1.18 MG/DL (0.70-1.30); GLOMERULAR FILTRATION RATE > 60.0 (>42); GLUCOSE, FASTING 151 MG/DL (74-106); POTASSIUM SERUM 4.3 MMOL/L (3.5-5.1); SODIUM LEVEL 142 MMOL/L (136-145); TOTAL PROTEIN 6.7 G/DL (5.7-8.2)
[2024-06-24 20:10] LABS: HEMOGLOBIN A1c 6.6 % (4.0-6.0)
== END ==
LOC: M SFHCCAPE 07:43
PROVIDERS: ATTEND Physician Assistant Medical
DX: M10.9 Gout, unspecified (principal); N18.2 Chronic kidney disease, stage 2 (mild); R25.1 Tremor, unspecified; E11.9 Type 2 diabetes mellitus without complications

== ENCOUNTER → 2024-10-23 | Outpatient (REF) | payer MEDICARE, BC ==
[2024-10-23 19:42] LABS: PSA SCREENING 0.81 NG/ML (< 4.00)
[2024-10-23 19:43] LABS: ALT/SGPT 19.0 U/L (7.0-40); AST/SGOT 24.0 U/L (<34); CALCIUM LEVEL 9.5 MG/DL (8.3-10.6); CARBON DIOXIDE LEVEL 29.0 MMOL/L (20-31); CHLORIDE LEVEL 101.0 MMOL/L (98-107); CREATININE FOR GFR 1.22 MG/DL (0.70-1.30); GLOMERULAR FILTRATION RATE 61.4 (>42); POTASSIUM SERUM 4.8 MMOL/L (3.5-5.1); SODIUM LEVEL 142.0 MMOL/L (136-145)
[2024-10-23 20:08] LABS: ESTIMATED AVERAGE GLUCOSE 143.0 MG/DL (60-110)
== END ==
LOC: M LAB REF 17:18
PROVIDERS: ATTEND Physician Assistant Medical
DX: Z12.5 Encounter for screening for malignant neoplasm of prostate (principal); E11.9 Type 2 diabetes mellitus without complications
CPT/HCPCS: 80053; 83036; G0103

== ENCOUNTER → 2024-11-05 | Outpatient (CLI) | payer MEDICARE, BC | LOC: M WUC 12:34 | PROVIDERS: ATTEND Physician Assistant Medical | DX: M16.11 Unilateral primary osteoarthritis, right hip (principal) ==

== ENCOUNTER → 2024-11-17 | Outpatient (CLI) | payer MEDICARE, BC ==
[~2024-11-17] MED LIST changes: +HYDR12.510 PO; -HYDR12CA PO
== END ==
LOC: M SOG 07:04
PROVIDERS: ATTEND Neuromusculoskeletal Medicine, Sports Medicine
DX: M25.551 Pain in right hip (principal); M16.0 Bilateral primary osteoarthritis of hip

== ENCOUNTER → 2025-02-23 | Outpatient (REF) | payer MEDICARE, BC ==
[~2025-02-23] MED LIST changes: -COLC0.6T47 PO; +COLC0.6T53 PO
[2025-02-23 18:50] LABS: BASO # 0.0 10^3/uL (0.0-0.2); BASO % 0.6 % (0.0-1.0); EOS # 0.1 10^3/uL (0.0-0.5); EOS % 1.5 % (0.0-3.0); LYMPH # 1.5 10^3/uL (1.5-5.0); LYMPH % 22.4 % (24.0-44.0); MONO # 0.6 10^3/uL (0.0-0.8); MONO % 8.4 % (2.0-8.0); NEUTROPHILS # 4.6 10^3/uL (1.5-8.5); NEUTROPHILS % 67.0 % (36.0-66.0); PLATELET COUNT, AUTOMATED 135 10^3/uL (150-450)
[2025-02-23 18:53] LABS: ALT/SGPT 17.0 U/L (7.0-40); AST/SGOT 21.0 U/L (<34); CALCIUM LEVEL 8.9 MG/DL (8.3-10.6); CARBON DIOXIDE LEVEL 31.0 MMOL/L (20-31); CHLORIDE LEVEL 100.0 MMOL/L (98-107); CHOLESTEROL LEVEL 139.0 MG/DL (<200); CHOLESTEROL RISK RATIO 4.16 (<5); CREATININE FOR GFR 1.03 MG/DL (0.70-1.30); GLOMERULAR FILTRATION RATE 75.3 (>42); LDL CHOLESTEROL 68.8 MG/DL (<100); NON-HDL-C 105.6 MG/DL; POTASSIUM SERUM 4.3 MMOL/L (3.5-5.1); SODIUM LEVEL 141.0 MMOL/L (136-145); TRIGLYCERIDES LEVEL 184.0 MG/DL (<150)
[2025-02-23 19:28] LABS: ESTIMATED AVERAGE GLUCOSE 143.0 MG/DL (60-110)
== END ==
LOC: M SFHCCAPE 08:09
PROVIDERS: ATTEND Physician Assistant Medical
DX: E11.9 Type 2 diabetes mellitus without complications (principal); R25.1 Tremor, unspecified; E78.2 Mixed hyperlipidemia